=== PATIENT | male | born 1970 | race Caucasian/White ===

== ENCOUNTER → 2018-03-22 23:54 | Outpatient (CLI) | payer OTHER, SELFPAY ==
[2018-03-22 15:24] VITALS: BMI 49.1
[2018-03-23 00:11] LABS: ALB/GLOB Ratio 0.9 RATIO (0.9-2.4); AST(SGOT) 26 U/L (15-37); Alanine Aminotransfer ALT/SGPT 54 U/L (16-61); Albumin, Serum 3.6 g/dL (3.2-5.0); Alkaline Phosphatase 69 U/L (45-117); Anion Gap 8 (5-15); BUN 14 mg/dL (7-18); BUN/Creat Ratio 14.5 RATIO (10-20); Calcium,Total 8.5 mg/dL (8.5-10.1); Chloride 105 mmol/L (98-107); Cholesterol 142 mg/dL (200); Creatinine, Serum 0.96 mg/dL (0.70-1.30); EST Glomerular Filtration Rate 89 mL/min (>60); Est Glom Filt Rate - Afr Amer 108 mL/min (>60); Globulin 3.8 g/dL (2.2-4.2); Glucose 120 mg/dL (74-106); High Density Lipoprotein 34 mg/dL; Potassium 4.2 mmol/L (3.5-5.1); Protein, Total 7.4 g/dL (6.4-8.2); Sodium Level 140 mmol/L (136-145); Triglycerides 134 mg/dL; Very Low Density Lipoprotein 27 mg/dL (5-40)
[2018-03-23 00:13] LABS: Absolute Lymphocyte Count 2.44 X10^3/ul (0.83-4.51); Absolute Neutrophil Count 5.9 X10^3/uL (2.0-7.7); Basophil# 0.03 X10^3/uL; Basophil% 0.3 % (0-1); Eosinophil# 0.13 X10^3/uL; Eosinophils% 1.4 % (0-5); Hematocrit 45.1 % (40-54); Hemoglobin 15.3 g/dl (13.0-16.5); Lymphocyte # 2.44 X10^3/ul (4.0); Mean Corp Hgb Conc 33.9 g/gl (32-36); Mean Corpuscular Hgb 30.2 pg (27.0-32.0); Mean Platelet Vol. 10.9 fl (6.2-12.0); Monocyte% 5.5 % (0-10); Neutrophil # 5.92 X10^3/uL (2.7-7.7); Neutrophil % 65.5 % (47-70); Platelet Count 275 K/mm3 (150-450); RBC Distribution Width CV 13.4 % (11.6-14.6); RBC Distribution Width SD 43.3 fl (35.1-43.9); Red Blood Count 5.07 M/mm3 (4.6-6.2); White Blood Count 9.1 K/mm3 (4.4-11.0)
[2018-03-23 00:14] LABS: POSITIVE COUNT NO; POSITIVE DIFFERENTIAL NO; POSITIVE MORPHOLOGY NO
== END ==
PROVIDERS: Referring Provider Nurse Practitioner; Visit Provider Nurse Practitioner
DX: I10 Essential (primary) hypertension (principal); R60.9 Edema, unspecified
CPT/HCPCS: 80053; 80061; 85025

== ENCOUNTER → 2018-04-03 12:45 | Outpatient (CLI) | payer OTHER, SELFPAY ==
[2018-03-22 15:24] VITALS: BMI 49.1
--- NOTE | 2018-04-03 12:49 | VDLE_ITS ---
Reason For Study: BLE EDEMA RIGHT LEFT GSV is normal. GSV is normal. CFV is compressible, spontaneous, phasic, CFV is compressible, spontaneous, phasic, competent and demonstrates normal competent, and demonstrates normal augmentation. augmentation. FV is compressible, spontaneous, phasic, FV is compressible, spontaneous, phasic, competent and demonstrates normal competent and demonstrates normal augmentation. augmentation. POP V is compressible, spontaneous, phasic, POP V is compressible, spontaneous, phasic, competent and demonstrates normal competent and demonstrates normal augmentation. augmentation. T/P Trunk is compressible. T/P Trunk is compressible. PTV is compressible. PTV is compressible. RT PerV is compressible. LT PerV is compressible. SFJ is competent. SFJ is competent. GSV is competent throughout. GSV is competent throughout. SSV is competent. SSV is competent. Procedure Exam performed in department. The study was technically difficult. The exam was diagnostic. A preliminary report was called and/or faxed to Lana Adamson NP. Interpretation Summary Deep veins of the lower extremities are bilaterally patent and compressible segmentally. There is no evidence of deep vein thrombosis on either side. Valvular competence appears intact within the proximal deep venous systems bilaterally. The greater saphenous veins appear bilaterally patent and compressible segmentally. Sapheno-femoral junctions are bilaterally competent . Valvular competence appears to be intact segmentally within the greater saphenous veins bilaterally. Small saphenous veins are patent and competent bilaterally. Ordering Physician: Lana Adamson Referring Physician: Lana Stanley Performed By: Lisa Lombardo, CASIMIRO, RVT
--- NOTE | 2018-04-03 12:50 | ART_ITS ---
Reason For Study: BLE PAIN AND EDEMA Procedure A bilateral lower extremity continuous wave Doppler with analog waveform analysis,segmental pressures,and ankle brachial indexes without exercise. Left Segmental Pressures Left brachial= 155mmHg. Left posterior tibial artery = 176mmHg. Left dorsalis pedis artery = 173mmHg. The left dorsalis pedis waveforms are triphasic. The left posterior tibial artery waveforms are triphasic. Right Segmental Pressures Right brachial= 159mmHg. Right posterior tibial artery = 192mmHg. Right dorsalis pedis artery = 190mmHg. The right dorsalis pedis waveforms are triphasic. The right posterior tibial artery waveforms are triphasic. Indices The right resting ankle brachial index is 1.21. The right ankle brachial index by the dorsalis pedis is 1.19. The right ankle brachial index by the posterior tibial artery is 1.21. The left resting ankle brachial index is 1.11. The left ankle brachial index by the dorsalis pedis is 1.09. The left ankle brachial index by the posterior tibial artery is 1.11. Interpretation Summary Triphasic waveforms are noted at ankle level bilaterally. Resting ankle-brachial indices appear bilaterally normal. There is no evidence of significant arterial occlusive disease. Ordering Physician: Lana Adamson Referring Physician: Lana Adamson Performed By: Lisa Lombardo RVT, RDCS
== END ==
PROVIDERS: Referring Provider Nurse Practitioner; Visit Provider Nurse Practitioner
DX: R60.9 Edema, unspecified (principal); I83.90 Asymptomatic varicose veins of unspecified lower extremity; I73.9 Peripheral vascular disease, unspecified
CPT/HCPCS: 93923; 93970

== ENCOUNTER → 2018-04-26 13:58 | Outpatient (CLI) | payer OTHER, SELFPAY ==
[2018-04-17 14:54] VITALS: BMI 57.2
--- NOTE | 2018-04-26 14:01 | ECHOCS_ITS ---
Reason For Study: HTN Procedure This was a 2D Doppler, Color Flow transthoracic echocardiogram. The study was technically difficult. Due to body habitus. Contrast injection was performed. Exam performed in department. Left Ventricle Normal LV size. Left ventricular systolic function is normal. The estimated ejection fraction is 55 %. No regional wall motion abnormalities noted. Right Ventricle Normal RV size. Normal systolic function. Atria The left atrium is mildly enlarged. Normal right atrium. Mitral Valve Mitral valve not well visualized. Tricuspid Valve The tricuspid valve is not well visualized. Aortic Valve The aortic valve is not well visualized. Pulmonic Valve The pulmonic valve is not well visualized. Great Vessels Normal aortic root. Pericardium/Pleural No pericardial effusion. Medication 22 gauge I.V. with prn adaptor inserted into right arm. Diluted definity 3.0ml given slow IV push to enhance endocardial definition. MMode/2D Measurements & Calculations LVIDd: 5.2 cm IVSd: 1.2 cm Ao root diam: 3.3 cm LVIDs: 3.7 cm LVPWd: 1.3 cm RVDd: 3.4 cm FS: 28.1 % LAV(MOD-bp): 78.8 ml LA A4 area: 23.7 cm2 LA dimension(2D): 4.2 cm LAV(MOD-bp) Indexed: 26.6 ml/m2 LAV(MOD-sp2): 73.9 ml LAV(MOD-sp4): 81.3 ml RA A4 area: 16.8 cm2 Doppler Measurements & Calculations MV E max rafael: 103.4 cm/sec Lat Peak E' Rafael: 10.8 cm/sec Med Peak E' Rafael: 10.1 cm/sec MV A max rafael: 89.4 cm/sec E/E' lat: 9.5 E/E' med: 10.2 MV E/A: 1.2 Ao V2 max: 107.1 cm/sec LV V1 max: 78.3 cm/sec PA V2 max: 93.5 cm/sec Ao max P.6 mmHg LV V1 max P.5 mmHg Interpretation Summary Normal LV size. Left ventricular systolic function is normal. The estimated ejection fraction is 55 %. The study was technically difficult. Contrast injection was performed. Ordering Physician: Gaston Barton Referring Physician: OTD Performed By: Lisa Lombardo, CASIMIRO, RVT
== END ==
PROVIDERS: Referring Provider Internal Medicine Cardiovascular Disease; Visit Provider Internal Medicine Cardiovascular Disease
DX: I10 Essential (primary) hypertension (principal); R60.9 Edema, unspecified
CPT/HCPCS: 93306; Q9957; A4216; C8929

== ENCOUNTER → 2019-03-07 10:12 | Outpatient (CLI) | payer OTHER, SELFPAY ==
[2018-04-17 14:54] VITALS: BMI 57.2
[2019-03-07 12:11] LABS: Absolute Lymphocyte Count 2.43 X10^3/uL (0.83-4.51); Absolute Neutrophil Count 5.9 X10^3/uL (2.0-7.7); Basophil# 0.05 X10^3/uL; Basophil% 0.5 % (0-1); Eosinophil# 0.18 X10^3/uL; Hematocrit 45.9 % (40-54); Hemoglobin 15.6 g/dL (13.0-16.5); Lymphocyte # 2.43 X10^3/ul (4.0); Lymphocyte % 26.7 % (19-41); Mean Corpuscular Hgb 29.8 pg (27.0-32.0); Mean Corpuscular Volume 87.6 fL (80-94); Mean Platelet Vol. 10.6 fl (6.2-12.0); Monocyte# 0.47 X10^3/uL; Monocyte% 5.2 % (0-10); NRBC Flagged by Analyzer 0 % (0-5); Neutrophil # 5.93 X10^3/uL (2.7-7.7); Neutrophil % 65.1 % (47-70); Platelet Count 287 K/mm3 (150-450); RBC Distribution Width CV 12.5 % (11.6-14.6); RBC Distribution Width SD 40.1 fl (35.1-43.9); Red Blood Count 5.24 M/mm3 (4.6-6.2); White Blood Count 9.1 K/mm3 (4.4-11.0)
[2019-03-07 12:20] LABS: Erythrocyte Sedimentation Rate 18 mm/hr (0-15)
[2019-03-07 12:28] LABS: ALB/GLOB Ratio 0.9 RATIO (0.9-2.4); AST(SGOT) 24 U/L (15-37); Alanine Aminotransfer ALT/SGPT 65 U/L (16-61); Albumin, Serum 3.5 g/dL (3.2-5.0); Alkaline Phosphatase 70 U/L (45-117); Anion Gap 3 (5-15); BUN 13 mg/dL (7-18); BUN/Creat Ratio 13.3 RATIO (10-20); Calcium,Total 8.9 mg/dL (8.5-10.1); Chloride 101 mmol/L (98-107); Creatinine, Serum 0.98 mg/dL (0.70-1.30); EST Glomerular Filtration Rate 88 mL/min (>60); Est Glom Filt Rate - Afr Amer 106 mL/min (>60); Glucose 191 mg/dL (74-106); Potassium 4.1 mmol/L (3.5-5.1); Protein, Total 7.5 g/dL (6.4-8.2); Rheumatoid Factor < 10.0 IU/mL (<15); Sodium Level 135 mmol/L (136-145)
[2019-03-07 13:13] LABS: Hepatitis B Surface Antibody Non-Reactive; Hepatitis B Surface Antigen Non-Reactive (Nonreactive); Hepatitis C Antibody Non-Reactive (Nonreactive)
[2019-03-10 09:37] LABS: CCP IgG Antibodies 8 units (0-19); Hepatitis B Core AB IgM Negative (Negative)
[2019-03-10 16:19] LABS: ANTINUCLEAR ANTIBODIES DIRECT Negative (Negative)
== END ==
PROVIDERS: Referring Provider Internal Medicine Rheumatology; Visit Provider Internal Medicine Rheumatology
DX: M06.4 Inflammatory polyarthropathy (principal); K21.9 Gastro-esophageal reflux disease without esophagitis; G25.81 Restless legs syndrome; G47.33 Obstructive sleep apnea (adult) (pediatric); E66.9 Obesity, unspecified
CPT/HCPCS: 36415; 80053; 85025; 85652; 86038; 86140; 86200; 86431; 86705; 86706; 86803; 87340

== ENCOUNTER → 2019-04-03 21:44 | Outpatient (CLI) | payer OTHER, SELFPAY ==
[2019-04-03 17:13] VITALS: BMI 56.9
[2019-04-03 22:11] LABS: Cholesterol 165 mg/dL (200); High Density Lipoprotein 34 mg/dL; Triglycerides 212 mg/dL; Very Low Density Lipoprotein 42 mg/dL (5-40)
== END ==
PROVIDERS: Referring Provider Nurse Practitioner; Visit Provider Nurse Practitioner
DX: I10 Essential (primary) hypertension (principal)
CPT/HCPCS: 80061

== ENCOUNTER → 2019-06-04 10:58 | Outpatient (CLI) | payer OTHER, SELFPAY ==
[2019-04-03 17:13] VITALS: BMI 56.9
[2019-06-04 12:15] LABS: Absolute Lymphocyte Count 2.56 X10^3/uL (0.83-4.51); Absolute Neutrophil Count 5.3 X10^3/uL (2.0-7.7); Basophil# 0.04 X10^3/uL; Basophil% 0.5 % (0-1); Eosinophil# 0.11 X10^3/uL; Eosinophils% 1.3 % (0-5); Hematocrit 46.7 % (40-54); Hemoglobin 15.8 g/dL (13.0-16.5); Lymphocyte # 2.56 X10^3/ul (4.0); Lymphocyte % 29.1 % (19-41); Mean Corp Hgb Conc 33.8 g/dL (32-36); Mean Corpuscular Hgb 29.1 pg (27.0-32.0); Mean Platelet Vol. 10.2 fl (6.2-12.0); Monocyte# 0.69 X10^3/uL; Monocyte% 7.8 % (0-10); NRBC Flagged by Analyzer 0 % (0-5); Neutrophil # 5.33 X10^3/uL (2.7-7.7); Neutrophil % 60.5 % (47-70); Platelet Count 293 K/mm3 (150-450); RBC Distribution Width CV 13.2 % (11.6-14.6); RBC Distribution Width SD 40.9 fl (35.1-43.9); Red Blood Count 5.43 M/mm3 (4.6-6.2); White Blood Count 8.8 K/mm3 (4.4-11.0)
[2019-06-04 12:24] LABS: ALB/GLOB Ratio 0.9 RATIO (0.9-2.4); AST(SGOT) 24 U/L (15-37); Alanine Aminotransfer ALT/SGPT 56 U/L (16-61); Albumin, Serum 3.7 g/dL (3.2-5.0); Alkaline Phosphatase 69 U/L (45-117); Anion Gap 7 (5-15); BUN 16 mg/dL (7-18); BUN/Creat Ratio 15.5 RATIO (10-20); Calcium,Total 8.9 mg/dL (8.5-10.1); Chloride 98 mmol/L (98-107); Creatinine, Serum 1.03 mg/dL (0.70-1.30); EST Glomerular Filtration Rate 82 mL/min (>60); Est Glom Filt Rate - Afr Amer 100 mL/min (>60); Glucose 207 mg/dL (74-106); Potassium 3.8 mmol/L (3.5-5.1); Protein, Total 7.7 g/dL (6.4-8.2); Sodium Level 134 mmol/L (136-145)
== END ==
PROVIDERS: Referring Provider Internal Medicine Rheumatology; Visit Provider Internal Medicine Rheumatology
DX: M06.4 Inflammatory polyarthropathy (principal); M72.2 Plantar fascial fibromatosis; K21.9 Gastro-esophageal reflux disease without esophagitis; G25.81 Restless legs syndrome; G47.33 Obstructive sleep apnea (adult) (pediatric); E66.9 Obesity, unspecified
CPT/HCPCS: 36415; 80053; 85025

== ENCOUNTER → 2020-01-05 21:12 | Outpatient (CLI) | payer OTHER, SELFPAY ==
[2020-01-05 17:20] VITALS: BMI 46.0
[2020-01-05 21:33] LABS: Absolute Lymphocyte Count 2.72 X10^3/uL (0.83-4.51); Absolute Neutrophil Count 5.6 X10^3/uL (2.0-7.7); Basophil# 0.05 X10^3/uL; Basophil% 0.6 % (0-1); Eosinophil# 0.11 X10^3/uL; Eosinophils% 1.2 % (0-5); Hemoglobin 15.2 g/dL (13.0-16.5); Lymphocyte # 2.72 X10^3/ul (4.0); Mean Corpuscular Hgb 29.3 pg (27.0-32.0); Mean Corpuscular Volume 88.6 fL (80-94); Mean Platelet Vol. 10.7 fl (6.2-12.0); Monocyte# 0.54 X10^3/uL; NRBC Flagged by Analyzer 0 % (0-5); Neutrophil # 5.58 X10^3/uL (2.7-7.7); Neutrophil % 61.5 % (47-70); Platelet Count 276 K/mm3 (150-450); RBC Distribution Width SD 42.2 fl (35.1-43.9); Red Blood Count 5.19 M/mm3 (4.6-6.2); White Blood Count 9.1 K/mm3 (4.4-11.0)
[2020-01-05 21:53] LABS: ALB/GLOB Ratio 0.9 RATIO (0.9-2.4); AST(SGOT) 33 U/L (15-37); Alanine Aminotransfer ALT/SGPT 58 U/L (16-61); Albumin, Serum 3.4 g/dL (3.2-5.0); Alkaline Phosphatase 74 U/L (45-117); Anion Gap 7 (5-15); BUN 14 mg/dL (7-18); BUN/Creat Ratio 11.1 RATIO (10-20); Calcium,Total 8.9 mg/dL (8.5-10.1); Chloride 101 mmol/L (98-107); Cholesterol 181 mg/dL (200); Creatinine, Serum 1.26 mg/dL (0.70-1.30); EST Glomerular Filtration Rate 65 mL/min (>60); Est Glom Filt Rate - Afr Amer 79 mL/min (>60); Globulin 3.9 g/dL (2.2-4.2); Glucose 352 mg/dL (74-106); High Density Lipoprotein 35 mg/dL; PSA,Total - Annual Screen 0.97 ng/mL (0.00-4.00); Protein, Total 7.3 g/dL (6.4-8.2); Sodium Level 136 mmol/L (136-145); Triglycerides 235 mg/dL; Very Low Density Lipoprotein 47 mg/dL (5-40)
== END ==
LOC: OLS.AHF 21:12 → LABSPEC 01-06 08:34
PROVIDERS: Referring Provider Nurse Practitioner; Visit Provider Nurse Practitioner
DX: N30.90 Cystitis, unspecified without hematuria (principal); N40.0 Benign prostatic hyperplasia without lower urinary tract symptoms; I10 Essential (primary) hypertension
CPT/HCPCS: 80053; 80061; 84153; 85025; 87086; G0103

== ENCOUNTER → 2021-03-16 21:30 | Outpatient (CLI) | payer OTHER, SELFPAY ==
[2021-03-16 21:48] LABS: Absolute Lymphocyte Count 3.02 X10^3/uL (0.83-4.51); Absolute Neutrophil Count 5.5 X10^3/uL (2.0-7.7); Basophil# 0.06 X10^3/uL; Basophil% 0.6 % (0-1); Eosinophils% 2.1 % (0-5); Hematocrit 46.9 % (40-54); Hemoglobin 16.1 g/dL (13.0-16.5); Lymphocyte # 3.02 X10^3/ul (0.83-4.51); Lymphocyte % 32.4 % (19-41); Mean Corp Hgb Conc 34.3 g/dL (32-36); Mean Corpuscular Hgb 30.1 pg (27.0-32.0); Mean Corpuscular Volume 87.8 fL (80-94); Mean Platelet Vol. 10.5 fl (6.2-12.0); Monocyte# 0.54 X10^3/uL; Monocyte% 5.8 % (0-10); NRBC Flagged by Analyzer 0 % (0-5); Neutrophil # 5.47 X10^3/uL (2.7-7.7); Neutrophil % 58.8 % (47-70); Platelet Count 304 K/mm3 (150-450); RBC Distribution Width CV 13.1 % (11.6-14.6); RBC Distribution Width SD 42.1 fl (35.1-43.9); Red Blood Count 5.34 M/mm3 (4.6-6.2); White Blood Count 9.3 K/mm3 (4.4-11.0)
[2021-03-16 22:13] LABS: Hemoglobin A1c 8.5 % (3.8-5.6)
[2021-03-16 22:15] LABS: ALB/GLOB Ratio 0.8 RATIO (0.9-2.4); AST(SGOT) 26 U/L (15-37); Alanine Aminotransfer ALT/SGPT 51 U/L (16-61); Albumin, Serum 3.4 g/dL (3.2-5.0); Alkaline Phosphatase 70 U/L (45-117); Anion Gap 6 (5-15); BUN 19 mg/dL (7-18); BUN/Creat Ratio 18.8 RATIO (10-20); Calcium,Total 8.8 mg/dL (8.5-10.1); Chloride 103 mmol/L (98-107); Cholesterol 179 mg/dL (200); Creatinine, Serum 1.01 mg/dL (0.70-1.30); EST Glomerular Filtration Rate 84 mL/min (>60); Est Glom Filt Rate - Afr Amer 101 mL/min (>60); Glucose 191 mg/dL (74-106); High Density Lipoprotein 29 mg/dL; PSA,Total - Annual Screen 0.98 ng/mL (0.00-4.00); Protein, Total 7.4 g/dL (6.4-8.2); Sodium Level 134 mmol/L (136-145); Triglycerides 268 mg/dL; Very Low Density Lipoprotein 54 mg/dL (5-40)
== END ==
PROVIDERS: PCP Nurse Practitioner; Visit Provider Nurse Practitioner
DX: Z00.00 Encounter for general adult medical examination without abnormal findings (principal)
CPT/HCPCS: 80053; 80061; 83036; 84153; 85025; G0103

== ENCOUNTER 2021-05-02 13:40 | Outpatient (CLI) | payer OTHER, SELFPAY ==
--- NOTE | 2021-05-02 13:48 | CT_ITS ---
STUDY: CT ABDOMEN AND PELVIS WITHOUT CONTRAST REASON FOR EXAM: Male, 50 years old. L flank pain -- N and + diabetes RADIATION DOSAGE (If Supplied By Facility): CTDIvol = ( 28.09 ) mGy, DLP = ( 1545.14 ) mGycm TECHNIQUE: Transaxial images were obtained from the dome of the diaphragm to the symphysis pubis without oral contrast, and without intravenous contrast. Sagittal and coronal images were reconstructed. Individualized dose optimization techniques were used for this CT. COMPARISON: None. FINDINGS: The visualized lung bases are unremarkable. The visualized portions of the heart are within normal limits. Normal liver. The gallbladder is contracted. Normal spleen. Normal pancreas. Normal bilateral adrenal glands. Normal right kidney. Normal left kidney. There is a small hiatal hernia. Normal small intestine. There are multiple colonic diverticula consistent with diverticulosis. The appendix is visualized and appears normal. Normal abdominal aorta. Normal inferior vena cava. Normal retroperitoneum. Normal urinary bladder. Small benign-appearing bilateral inguinal lymph nodes. Normal abdominal wall. There are diffuse degenerative changes of the visualized lumbar spine. CT/Abdomen/Pelvis without Cont IMPRESSION: No acute abnormality is seen. Electronically Signed: Alexei Gallardo MD at 15:02 RUST ,
== END 2021-05-02 23:59 | disposition short-term general hospital (02) ==
PROVIDERS: PCP Nurse Practitioner; Referring Provider Nurse Practitioner; Visit Provider Nurse Practitioner
DX: E11.65 Type 2 diabetes mellitus with hyperglycemia (principal); R10.9 Unspecified abdominal pain
CPT/HCPCS: 74176

== ENCOUNTER → 2022-03-30 | Outpatient (CLI) | payer OTHER, SELFPAY ==
[2022-03-30 21:48] LABS: Absolute Lymphocyte Count 2.61 X10^3/uL (0.83-4.51); Absolute Neutrophil Count 5.8 X10^3/uL (2.0-7.7); Basophil# 0.03 X10^3/uL; Basophil% 0.3 % (0-1); Eosinophils% 6.3 % (0-5); Hematocrit 52.8 % (40-54); Lymphocyte # 2.61 X10^3/ul (0.83-4.51); Lymphocyte % 27.2 % (19-41); Mean Corp Hgb Conc 34.7 g/dL (32-36); Mean Corpuscular Hgb 29.9 pg (27.0-32.0); Mean Corpuscular Volume 86.3 fL (80-94); Mean Platelet Vol. 10.7 fl (6.2-12.0); Monocyte% 5.2 % (0-10); NRBC Flagged by Analyzer 0 % (0-5); Neutrophil # 5.82 X10^3/uL (2.7-7.7); Neutrophil % 60.6 % (47-70); Platelet Count 305 K/mm3 (150-450); RBC Distribution Width CV 13.1 % (11.6-14.6); RBC Distribution Width SD 40.9 fl (35.1-43.9); Red Blood Count 6.12 M/mm3 (4.6-6.2); White Blood Count 9.6 K/mm3 (4.4-11.0)
[2022-03-30 21:57] LABS: POSITIVE COUNT NO; POSITIVE DIFFERENTIAL NO; POSITIVE MORPHOLOGY NO
[2022-03-30 21:58] LABS: Differential Indicated SCAN CRITERIA MET
[2022-03-30 22:07] LABS: ALB/GLOB Ratio 0.8 RATIO (0.9-2.4); AST(SGOT) 18 U/L (15-37); Alanine Aminotransfer ALT/SGPT 41 U/L (16-61); Albumin, Serum 3.6 g/dL (3.2-5.0); Alkaline Phosphatase 79 U/L (45-117); Anion Gap 6 (5-15); BUN 14 mg/dL (7-18); BUN/Creat Ratio 13.7 RATIO (10-20); Calcium,Total 9.1 mg/dL (8.5-10.1); Chloride 100 mmol/L (98-107); Cholesterol 161 mg/dL (200); Creatinine, Serum 1.02 mg/dL (0.70-1.30); EST Glomerular Filtration Rate 82 mL/min (>60); Est Glom Filt Rate - Afr Amer 100 mL/min (>60); Globulin 4.3 g/dL (2.2-4.2); Glucose 128 mg/dL (74-106); High Density Lipoprotein 32 mg/dL; PSA,Total - Annual Screen 0.64 ng/mL (0.00-4.00); Protein, Total 7.9 g/dL (6.4-8.2); Sodium Level 135 mmol/L (136-145); Triglycerides 198 mg/dL; Very Low Density Lipoprotein 40 mg/dL (5-40)
[2022-03-30 22:22] LABS: Hemoglobin A1c 6.3 % (3.8-5.6)
[2022-03-30 22:36] LABS: Hemoglobin 18.3 g/dL (13.0-16.5)
[2022-03-30 22:37] LABS: Anisocytosis RARE; Platelet Estimate ADEQUATE (ADEQ); Red Cell Morphology N CHROM NORMAL (NORM C&C)
[2022-03-31 11:37] LABS: Pathologist Review Reviewed
== END | disposition home or self-care (01) ==
PROVIDERS: PCP Nurse Practitioner; Visit Provider Nurse Practitioner
DX: E11.65 Type 2 diabetes mellitus with hyperglycemia (principal); R60.9 Edema, unspecified; I10 Essential (primary) hypertension; N40.0 Benign prostatic hyperplasia without lower urinary tract symptoms
CPT/HCPCS: 80053; 80061; 83036; 84153; 85025; G0103

== ENCOUNTER → 2022-05-16 | Outpatient (CLI) | payer BC, SELFPAY | END | disposition home or self-care (01) | PROVIDERS: PCP Nurse Practitioner; Visit Provider Nurse Practitioner | DX: M54.50 Low back pain, unspecified (principal); R35.0 Frequency of micturition | CPT/HCPCS: 87086; 87088 ==

== ENCOUNTER → 2022-05-17 | Outpatient (CLI) | payer BC, SELFPAY ==
--- NOTE | 2022-05-17 11:08 | RAD_ITS ---
STUDY: X-RAY - LUMBAR SPINE REASON FOR EXAM: Male, 51 years old. lower back pain TECHNIQUE: XR Spine Lumbar Comp W/ Bending Min 6 Views COMPARISON: None FINDINGS: Normal lumbar lordosis. There is no substantial scoliosis. There is a normal alignment of the vertebrae. There is multilevel endplate spondylosis of the lumbar vertebrae. There is multi-level degenerative disc disease with multi-level disc space narrowing. There are atherosclerotic vascular calcifications. The soft tissue structures are unremarkable. Degenerative findings of the hips. There is no movement on the flexion or extension views. RAD/L/S Spine Bending Flex/Ext IMPRESSION: Degenerative changes of the spine, as detailed above. Electronically Signed: Ludwin Hatch MD at 18:12 EST ,
== END | disposition home or self-care (01) ==
LOC: MTRAD 11:06
PROVIDERS: PCP Nurse Practitioner; Visit Provider Nurse Practitioner
DX: M54.50 Low back pain, unspecified (principal)
CPT/HCPCS: 72120

== ENCOUNTER → 2022-06-17 | Outpatient (CLI) | payer BC, SELFPAY ==
--- NOTE | 2022-06-17 | MRI_ITS ---
INDICATION: Low back pain. Lumbar spondylosis. EXAMINATION: MR Spine Lumbar W/O Contrast TECHNIQUE: Multiplanar and multisequence MR images of the lumbar spine. IV Contrast Dosage and Agent: None. COMPARISON: Lumbar spine x-rays May 17, 2022. FINDINGS: VERTEBRAE: Vertebral body heights are preserved. Multilevel Schmorl''s on endplate changes. Modic endplate change at L3-4. No marrow edema or fracture. Mild congenital narrowing of the pedicles within the upper lumbar spine. VERTEBRAL ALIGNMENT: No spondylolisthesis. There is preservation of the normal lumbar lordosis. CORD: Normal position and signal intensity of the conus medullaris. Conus terminates normally at L1. There is redundancy of the cauda equina at L1 and L2 secondary to spinal stenosis. SOFT TISSUES: Aorta is normal in caliber. Mild atrophy of the paraspinous musculature. AXIAL IMAGES: L1-2: Left central disc protrusion. Mild facet arthropathy. Mild bordering on moderate spinal canal narrowing. Mild endplate osteophyte formation. Mild to moderate left foraminal narrowing. L2-3: Broad central protrusion. Facet arthropathy and ligamentum flavum thickening. Moderate bordering on severe spinal canal narrowing. Mild bilateral foraminal narrowing. L3-4: Broad central protrusion. Facet degenerative change and ligamentum flavum thickening. Moderate to severe spinal canal stenosis. Moderate right and mild left foraminal narrowing. L4-5: Broad central protrusion. Mild facet arthropathy and ligamentum flavum thickening. Mild spinal canal stenosis and left greater than right reticular recess narrowing. Mild foraminal narrowing. L5-S1: No focal disc protrusion. Mild facet arthropathy. No spinal canal or foraminal stenosis. MRI/Spine Lumbar (Routine) IMPRESSION: Spondylosis changes of the lumbar spine with spinal stenosis as described. Surgical evaluation is recommended. Electronically Signed: Blaze Adam MD at 17:25 EDT ,
== END | disposition home or self-care (01) ==
LOC: MRI 07:55
PROVIDERS: PCP Nurse Practitioner; Referring Provider Orthopaedic Surgery; Visit Provider Orthopaedic Surgery
DX: M47.816 Spondylosis without myelopathy or radiculopathy, lumbar region (principal)
CPT/HCPCS: 72148

== ENCOUNTER 2023-02-19 10:33 | Day surgery (SDC) | payer BC, SELFPAY ==
[2023-02-19] VITALS (7 sets, daily range): BP systolic 122–134; BP diastolic 76–95; PULSE 71–89; RESP 16–18; TEMP 36.1–36.8; O2SAT 95–99; BMI 51.9
[2023-02-19] MEDS: Lactated Ringers 1,000 ML 15 ML IV (10:45)
[2023-02-19 11:25] LABS: Bedside Glucose 108 mg/dL (74-106)
--- NOTE | 2023-02-19 11:25 | RAD_ITS ---
PROCEDURE: Caudal epidural steroid injection. DATE OF EXAMINATION: February 19, 2023. INDICATION: Male, 52 years old. Low back pain. FLUOROSCOPY TIME (if supplied): (12.9 seconds) minutes/seconds. 18.33 mGy. One image was submitted. Intraoperative fluoroscopic services provided for caudal epidural steroid injection. RAD/Fluor Guidance for Spine Inj IMPRESSION: Intraoperative fluoroscopic services provided for caudal epidural steroid injection. Electronically Signed: Alexei Gallardo MD at 11:05 EST ,
[2023-02-19] MEDS: Bupivacaine 0.25% 30 ML Vial (11:30)
[2023-02-19] MEDS: 0.9% Normal Saline (Pres. free 10 ML Vial (11:30)
[2023-02-19] MEDS: MethylPREDNISolone Acetate 80 MG/ML Vial (11:30)
[2023-02-19] MEDS: Lidocaine 1% (5 ml sdv) 5 ML Vial (11:30)
--- NOTE | 2023-02-19 11:35 | OP.PCM_ITS ---
Report of Operation Date of Procedure: 02/19/23 Pre-Operative Diagnosis: Lumbosacral radiculopathy, lumbosacral degenerative di sc disease, lumbosacral spinal stenosis Post-Operative Diagnosis: Lumbosacral radiculopathy, lumbosacral degenerative disc disease, lumbosacral spinal stenosis Surgery/Procedure Performed:: Diagnostic/therapeutic caudal epidural steroid injection under fluoroscopic guidance Type of Anesthesia: MAC Estimated Blood Loss (mL): Minimal Description of Procedure: DESCRIPTION OF PROCEDURE: History and physical of today was reviewed. Risks and benefits of the procedure were explained. The patient understood and agreed to proceed. Informed consent was obtained. IV inserted per routine protocol. The patient was taken to the operating room and placed in the prone position with a pillow positioned underneath the abdomen. The lower back and tailbone area was prepped and draped in a sterile fashion using iodine x3. Under fluoroscopy guidance on a lateral view, the caudal space was identified. The skin and subcutaneous tissue was anesthetized with approximately 3 mL of 1% lidocaine using a 25-gauge regular needle. Under direct visualization with fluoroscopy, using a 22-gauge 3-1/2-inch spinal needle, the needle was advanced via the skin through the sacral hiatus. The tip of the needle was passed through the sacrococcygeal ligament and advanced to approximately S4 area. After negative aspiration of blood or CSF, a total of 3 mL of contrast was injected to confirm correct placement of the needle as well as cephalad spread. The spread was followed to approximately L5 area. After confirmation on AP as well as lateral view and repeated negative aspiration, a total of 15 mL of preservative-free 0.125% Marcaine with 80 mg of Depo-Medrol was injected easily. The needle was then removed intact. The patient experienced no sign or symptoms of intrathecal or intravascular injection. The patient experienced no paresthesia. The procedure was completed without any apparent difficulty or any complications. The patient appeared to tolerate it well. ASSESSMENT AND PLAN: This is a 52-year-old male with lumbosacral radiculopathy, lumbosacral degenerative disc disease, lumbosacral spinal stenosis status post diagnostic/therapeutic caudal epidural steroid injection, patient will continue his current medications, patient will follow in approximately 2 weeks for reevaluation. Complications None
== END 2023-02-19 12:18 | disposition home or self-care (01) ==
LOC: SDC 10:33 → AC 10:34
PROVIDERS: PCP Nurse Practitioner; Referring Provider Anesthesiology Pain Medicine; Visit Provider Anesthesiology Pain Medicine
PROC: 3E0S3BZ Introduction of Anesthetic Agent into Epidural Space, Percutaneous Approach (ICD-10-PCS; CPT 62282; principal; 2023-02-19 12:05)
DX: M48.07 Spinal stenosis, lumbosacral region (principal); E11.9 Type 2 diabetes mellitus without complications; M51.17 Intervertebral disc disorders with radiculopathy, lumbosacral region; J45.909 Unspecified asthma, uncomplicated; K21.9 Gastro-esophageal reflux disease without esophagitis; I10 Essential (primary) hypertension; Z79.899 Other long term (current) drug therapy
CPT/HCPCS: 62323; 01992; 64483; 77003; 82962; J7120; J3490

== ENCOUNTER 2023-08-20 08:52 | Day surgery (SDC) | payer BC, SELFPAY ==
[2023-08-20] VITALS (7 sets, daily range): BP systolic 94–134; BP diastolic 63–88; PULSE 73–82; RESP 16; TEMP 36.4–36.8; O2SAT 95–98; BMI 51.2
[2023-08-20] MEDS: Lactated Ringers 1,000 ML 15 ML IV (09:26)
[2023-08-20 10:06] LABS: Bedside Glucose 120 mg/dL (74-106)
--- NOTE | 2023-08-20 10:11 | RAD_ITS ---
EXAM: FL Fluoro (separate procedure), up to 1 hour HISTORY: CAUDAL EPIDURAL STEROID INJECTION COMPARISON: None Technique: One C-arm image obtained, 5.7 seconds fluoroscopy, a dose of 6.58mGy FINDINGS: Fluoroscopy was provided for epidural injection of a steroid by Dr. Haley RAD/Fluor Guidance for Spine Inj IMPRESSION: Fluoroscopy provided for steroid injection Electronically Signed: Aristides De Anda MD at 12:07 EDT ,
[2023-08-20] MEDS: Lidocaine 1% (5 ml sdv) 5 ML Vial (10:18)
[2023-08-20] MEDS: MethylPREDNISolone Acetate 80 MG/ML Vial (10:18)
[2023-08-20] MEDS: 0.9% Normal Saline (Pres. free 10 ML Vial (10:18)
--- NOTE | 2023-08-20 10:20 | OP.PCM_ITS ---
Report of Operation Date of Procedure: 08/20/23 Pre-Operative Diagnosis: Lumbosacral radiculopathy, lumbosacral degenerative di sc disease, lumbosacral spinal stenosis Post-Operative Diagnosis: Lumbosacral radiculopathy, lumbosacral degenerative disc disease, lumbosacral spinal stenosis Surgery/Procedure Performed:: Diagnostic/therapeutic caudal epidural steroid injection under fluoroscopic guidance Type of Anesthesia: MAC Estimated Blood Loss (mL): Minimal Description of Procedure: DESCRIPTION OF PROCEDURE: History and physical of today was reviewed. Risks and benefits of the procedure were explained. The patient understood and agreed to proceed. Informed consent was obtained. IV inserted per routine protocol. The patient was taken to the operating room and placed in the prone position with a pillow positioned underneath the abdomen. The lower back and tailbone area was prepped and draped in a sterile fashion using iodine x3. Under fluoroscopy guidance on a lateral view, the caudal space was identified. The skin and subcutaneous tissue was anesthetized with approximately 3 mL of 1% lidocaine using a 25-gauge regular needle. Under direct visualization with fluoroscopy, using a 22-gauge 3-1/2-inch spinal needle, the needle was advanced via the skin through the sacral hiatus. The tip of the needle was passed through the sacrococcygeal ligament and advanced to approximately S4 area. After negative aspiration of blood or CSF, a total of 3 mL of contrast was injected to confirm correct placement of the needle as well as cephalad spread. The spread was followed to approximately L5 area. After confirmation on AP as well as lateral view and repeated negative aspiration, a total of 15 mL of preservative-free 0.125% Marcaine with 80 mg of Depo-Medrol was injected easily. The needle was then removed intact. The patient experienced no sign or symptoms of intrathecal or intravascular injection. The patient experienced no paresthesia. The procedure was completed without any apparent difficulty or any complications. The patient appeared to tolerate it well. ASSESSMENT AND PLAN: This is a 53-year-old male with lumbosacral radiculopathy, lumbosacral degenerative disc disease, lumbosacral spinal stenosis status post diagnostic/therapeutic caudal epidural steroid injection, patient will continue his current medications, patient will follow in approximately 2 weeks for reevaluation. Complications None
== END 2023-08-20 11:19 | disposition home or self-care (01) ==
LOC: SDC 08:55 → AC 08:55
PROVIDERS: PCP Nurse Practitioner; Visit Provider Anesthesiology Pain Medicine
PROC: 3E0S3BZ Introduction of Anesthetic Agent into Epidural Space, Percutaneous Approach (ICD-10-PCS; CPT 62282; principal; 2023-08-20 10:25)
DX: M51.17 Intervertebral disc disorders with radiculopathy, lumbosacral region (principal); E11.9 Type 2 diabetes mellitus without complications; M48.07 Spinal stenosis, lumbosacral region; I10 Essential (primary) hypertension; G47.33 Obstructive sleep apnea (adult) (pediatric); Z79.899 Other long term (current) drug therapy
CPT/HCPCS: 62323; 01992; 64483; 77003; 82962; J7120; J3490

== ENCOUNTER 2023-08-31 21:37 | Emergency (ER) | payer BC, SELFPAY ==
[2023-08-31 21:38] VITALS: BP 158/94; PULSE 89; RESP 16; TEMP 36.8; O2SAT 98
--- NOTE | 2023-08-31 21:54 | CT_ITS ---
INDICATION: Kidney Stone EXAMINATION: CT ABDOMEN AND PELVIS WITHOUT CONTRAST - CT Abdomen And Pelvis W/O Contrast Injection TECHNIQUE: Helically acquired images were obtained of the abdomen and pelvis without oral or IV contrast. A radiation dose optimization technique was used for this scan. IV Contrast dosage and agent: None. Oral contrast: None. COMPARISON: 05/02/2021. FINDINGS: LOWER CHEST: Lung bases are clear. No cardiomegaly or pericardial effusion. LIVER: Homogeneous. No focal mass. GALLBLADDER AND BILIARY TREE: No calcified gallstones. No gallbladder distension or wall edema. No intra- or extrahepatic biliary ductal dilation. PANCREAS: No focal cystic or solid mass. SPLEEN: Normal size without focal cystic or solid mass. ADRENAL GLANDS: No nodules. KIDNEYS AND URETERS: Normal renal size and position. No hydronephrosis. PERITONEUM: No ascites or free air. No other fluid collection. BOWEL: Minimal hiatal hernia. No acute gastric finding. No small bowel distention or focal wall thickening. Normal appendix. Large colonic stool burden without wall thickening or surrounding inflammation. LYMPH NODES: No enlarged mesenteric or retroperitoneal lymph nodes. VESSELS: Aorta is non-dilated. URINARY BLADDER: Mild bilateral perinephric stranding. No hydronephrosis or nephrolithiasis. Subtle left renal 1.4 cm cyst, no specific imaging follow-up required. Unremarkable ureters and bladder. REPRODUCTIVE ORGANS: No pelvic masses. ABDOMINAL WALL: Fat-containing umbilical hernia without inflammation. No discrete abdominal or pelvic wall hernia. BONES: No lytic or blastic abnormality. CT/Abdomen/Pelvis without Cont IMPRESSION: No evidence of nephrolithiasis or obstructive uropathy. Mild perinephric stranding which is commonly senescent. Pyelonephritis could look similar. Correlate with urine. Large colonic stool burden. Distal colonic diverticulosis without evidence of diverticulitis. Electronically Signed: Garret Landeros MD at 23:25 EDT ,
--- NOTE | 2023-08-31 21:57 | EX.ED.DYSGE1 ---
HPI History of Present Illness Chief Complaint: Complaint Narrative Narrative: 53-year-old male past medical history of chronic back pain for which he receives steroid injections, past medical history of diabetes, hypertension, presents with bilateral leg cramping and thigh cramping along with left flank pain greater than right that has had for the last week. His relate history that he has been having problems with back spasms and flank spasms for the last week. It is usually exacerbated by him laying down. He states he can be at work, be standing, and it does not happen. This evening, he was laying down and had to get up because feels like charley horses in his bilateral thighs. He denies any fever or chills, no loss of bowel or bladder, no saddle anesthesia. He states he is not having problems with his chronic back pain, there was an area in his left flank that his felt more muscle spasms. He states when he gets them he has to stand up to try and make them go away. [facility] Medical History Diabetes Arthritis History of echocardiogram Back pain Dietary restriction Gastric reflux Non-smoker Cardiology follow-up encounter Hypertension History of stress test BPH (benign prostatic hyperplasia) Asthmatic bronchitis Pneumonia Home Medications ?Medication ?Instructions ?Recorded ?Last Taken ?Type pantoprazole 20 mg tablet,delayed 40 mg PO DAILY 04/17/18 Unknown History release (Protonix) finasteride 5 mg tablet 5 mg PO DAILY 05/16/22 Unknown History blood sugar diagnostic (Accu-Chek #100 ea 07/31/22 Unknown Rx Guide test strips) lancets (Accu-Chek Softclix #100 ea 07/31/22 Unknown Rx Lancets) empagliflozin 25 mg tablet 25 mg PO DAILY #90 tabs 01/10/23 Unknown Rx (Jardiance) hydrochlorothiazide 25 mg tablet 25 mg PO DAILY #90 tabs 01/10/23 Unknown Rx lisinopril 40 mg tablet 40 mg PO DAILY #90 tabs 01/10/23 Unknown Rx metoprolol succinate 200 mg 200 mg PO DAILY #90 tabs 01/10/23 08/19/23 15:00 Rx tablet,extended release 24 hr benzonatate 200 mg capsule 200 mg PO TID PRN cough #45 caps 03/29/23 Unknown Rx doxycycline hyclate 100 mg capsule 100 mg PO BID #20 caps 03/29/23 Unknown Rx tirzepatide 7.5 mg/0.5 mL 7.5 mg subcut QWEEK 03/29/23 Unknown History subcutaneous pen injector cyclobenzaprine 10 mg tablet 10 mg PO TID PRN Muscle Spasm #20 08/31/23 Unknown Rx TABLETS Allergy/AdvReac Type Severity Reaction Status Date / Time dulaglutide (From [facility]) Allergy Severe NUMBNESS Verified 08/31/23 21:41 AROUND THE MOUTH Penicillins Allergy Severe hives and Verified 08/31/23 21:41 swelling Family History Mother Diabetes Dementia Father CVA (cerebral vascular accident) Dementia Surgical History Hx of arthroscopy of right knee Hx of arthroscopy of left knee [place] teeth removed Social History Smoking Status: Never smoker ROS ROS ED ROS Narrative Constitutional: No fever, no chills. HEENT: No sore throat. No neck pain. No loss of vision. No rhinorrhea. Cardiovascular: No chest pain. No palpitations. No pedal edema. Respiratory: No cough, no shortness of breath. Abdominal: No abdominal pain. No nausea. No vomiting. Bilateral flank pain left greater than right. Genitourinary: No dysuria. No hematuria. Mild frequency, but has history of diabetes. Musculoskeletal: Bilateral thigh pain and muscle spasms. No arthralgias. Neurologic: No headaches. No dizziness. No lightheadedness. Skin: No rash. No change in color. Psychiatric: No depression. No anxiety. EXAM Physical Exam Narrative Exam Narrative: Afebrile. Vital signs noted. HEENT: Normocephalic. Atraumatic. PERRL, EOMI. Neck soft and supple. No point tenderness or step off. Cardiovascular: Regular rate and rhythm. No murmurs, rubs, or gallops appreciated. Respiratory: No tachypnea. Lungs clear to auscultation bilaterally. Gastrointestinal: Abdomen soft, nontender, with normoactive bowel sounds. No rebound or guarding. Neurological: Awake. Alert. Nonfocal, nonlateralizing. Skin: No rash. Normal color. No pallor. Musculoskeletal: No pedal edema. Full range of motion extremities. Const Vital Signs: 08/31/23 21:38 Temperature 98.2 F Temperature Source Temporal Pulse Rate 89 Respiratory Rate 16 Blood Pressure 158/94 H Blood Pressure Mean 115 Pulse Ox 98 Oxygen Delivery Method Room Air MDM MDM MDM Narrative Medical decision making narrative: In the differential diagnosis is dehydration or electrolyte imbalance causing muscle spasms versus kidney stone versus degenerative joint disease of the spine, lumbar. He was having more flank pain and muscle spasms there, and bilateral quadriceps spasming and pain. He will be bolused normal saline 1 L intravenously for hydration. He declined any pain medications currently. I do not think he needs dedicated x-rays or imaging of his lumbar spine. I have low suspicion for cauda equina because there are no red flag signs. Will be worked up for ureterolithiasis although states his pain is bilateral. I do feel CT of the abdomen pelvis without contrast would be of benefit to rule out any intra-abdominal pathology. I will also check a magnesium level along with CBC and CMP to look for dehydration or electrolyte imbalance. I reviewed his laboratory work and he has slight elevation of his white count of 12.6 which I think is nonspecific, hemoglobin slightly hemoconcentrated 17.2 with hematocrit 51.9, platelet count normal at 277. Sodium slightly low at 134 but he was bolused normal saline 1 L intravenously. Potassium is normal at 3.7. BUN slightly elevated at 23 with a normal creatinine of 1.[address] of the abdomen and pelvis without contrast was obtained and I reviewed the radiology report. It comments on bilateral perinephric stranding which could be senescent or consistent with pyelonephritis. However, his urinalysis is negative for leukocytes and negative for nitrites on dip UA and he is not having dysuria, no fever. I do not feel that he requires antibiotics. CT also comments on large colonic stool burden along with diverticulosis but no evidence of diverticulitis. Patient continued to decline any pain medications. At this point in time, I feel he can be discharged safely home with follow-up to his primary care provider on Sunday. I wrote him a prescription for 20 Flexeril tablets to take should he have more muscle spasms and cramping. I do not feel he requires observation at this time. Return instructions to the emergency department were reviewed. Patient and are comfortable with the plan. Disposition is discharged home in stable condition. History & Record Review Discussion w/independent historian: Patient and Significant other (Spouse) Lab Data Attestation: I reviewed the patient's lab results. Labs: Laboratory Results - last 24 hr 08/31/23 08/31/23 22:10 23:24 WBC 12.6 H RBC 5.84 Hgb 17.2 H Hct 51.9 MCV 88.9 MCH 29.5 MCHC 33.1 RDW Std Deviation 43.6 RDW Coeff of Mandeep 13.6 Plt Count 277 MPV 9.7 Immature Gran % (Auto) 0.700 Neut % (Auto) 69.6 Lymph % (Auto) 21.4 Kinney % (Auto) 6.7 Eos % (Auto) 1.1 Baso % (Auto) 0.5 Absolute Neuts (auto) 8.8 H Absolute Lymphs (auto) 2.70 Nucleated RBC % 0 Sodium 134 L Potassium 3.7 Chloride 99 Carbon Dioxide 27.0 Anion Gap 8 BUN 23 H Creatinine 1.10 Est GFR (MDRD) Af Amer 91 Est GFR (MDRD) Non-Af 75 BUN/Creatinine Ratio 20.9 H Glucose 141 H Calcium 8.7 Magnesium 2.2 Urine Color Yellow Urine Clarity Clear Urine pH 5.0 Ur Specific Thornton 1.025 Urine Protein Negative Urine Glucose (UA) 1000 H Urine Ketones Negative Urine Occult Blood 10 H Urine Nitrite Negative Urine Bilirubin Negative Urine Urobilinogen Normal Ur Leukocyte Esterase Negative Radiography Diagnostic Testing: Clinical Impression(s) from Imaging Studies Abdomen/Pelvis CT 08/31/23 21:54 IMPRESSION: No evidence of nephrolithiasis or obstructive uropathy. Mild perinephric stranding which is commonly senescent. Pyelonephritis could look similar. Correlate with urine. Large colonic stool burden. Distal colonic diverticulosis without evidence of diverticulitis. Electronically Signed: Garret Landeros MD at 23:25 EDT , Discharge Plan Triage Chief Complaint: Complaint Other Complaint: Back ED Provider: Luis M Ely Dx/Rx/DC Orders Clinical Impression: Muscle cramping, Flank pain Instructions: ED Flank Pain, Uncertain Cause, ED Leg Spasm, ED Muscle Spasm Prescriptions: New cyclobenzaprine 10 mg tablet 10 mg PO TID PRN (Reason: Muscle Spasm) Qty: 20 0RF No Action pantoprazole [Protonix] 20 mg tablet,delayed release (DR/EC) 40 mg PO DAILY finasteride 5 mg tablet 5 mg PO DAILY Jardiance 25 mg tablet 25 mg PO DAILY Qty: 90 3RF hydrochlorothiazide 25 mg tablet 25 mg PO DAILY Qty: 90 3RF lisinopril 40 mg tablet 40 mg PO DAILY Qty: 90 3RF metoprolol succinate 200 mg tablet extended release 24 hr 200 mg PO DAILY Qty: 90 3RF doxycycline hyclate 100 mg capsule 100 mg PO BID Qty: 20 0RF tirzepatide 7.5 mg/0.5 mL pen injector 7.5 mg subcut QWEEK benzonatate 200 mg capsule 200 mg PO TID PRN (Reason: cough) Qty: 45 1RF (DME) Accu-Chek Guide test strips Strip See Rx Instructions .Route Qty: 100 3RF Rx Instructions: test at least 0nce a day (DME) lancets [Accu-Chek Softclix Lancets] Misc See Rx Instructions .Route Qty: 100 3RF Rx Instructions: As directed Primary Care Provider: Lana Adamson NP Referrals: Lana Adamson NP, [facility] [Primary Care Provider] - 3-5 Days Print Language: Korean Disposition Disposition: Home, Self Care
[2023-08-31] MEDS: 0.9% Normal Saline (1000mL) 1,000 ML 999 ML IV (22:09)
[2023-08-31 22:25] LABS: Absolute Neutrophil Count 8.8 X10^3/uL (2.0-7.7); Basophil# 0.06 X10^3/uL; Basophil% 0.5 % (0-1); Eosinophil# 0.14 X10^3/uL; Eosinophils% 1.1 % (0-5); Hematocrit 51.9 % (40-54); Hemoglobin 17.2 g/dL (13.0-16.5); Lymphocyte % 21.4 % (19-41); Mean Corp Hgb Conc 33.1 g/dL (32-36); Mean Corpuscular Hgb 29.5 pg (27.0-32.0); Mean Corpuscular Volume 88.9 fL (80-94); Mean Platelet Vol. 9.7 fl (6.2-12.0); Monocyte# 0.85 X10^3/uL; Monocyte% 6.7 % (0-10); NRBC Flagged by Analyzer 0 % (0-5); Neutrophil % 69.6 % (47-70); Platelet Count 277 K/mm3 (150-450); RBC Distribution Width CV 13.6 % (11.6-14.6); RBC Distribution Width SD 43.6 fl (35.1-43.9); Red Blood Count 5.84 M/mm3 (4.6-6.2); White Blood Count 12.6 K/mm3 (4.4-11.0)
[2023-08-31 22:43] LABS: Anion Gap 8 (5-15); BUN 23 mg/dL (7-18); BUN/Creat Ratio 20.9 RATIO (10-20); Calcium,Total 8.7 mg/dL (8.5-10.1); Chloride 99 mmol/L (98-107); EST Glomerular Filtration Rate 75 mL/min (>60); Est Glom Filt Rate - Afr Amer 91 mL/min (>60); Glucose 141 mg/dL (74-106); Magnesium 2.2 mg/dL (1.6-2.6); Potassium 3.7 mmol/L (3.5-5.1); Sodium Level 134 mmol/L (136-145)
[2023-08-31 23:28] LABS: Bacteria 0 SEEN /hpf (None Seen); Mucous, Urine 0 SEEN /hpf (<or=2+); Red Blood Cells-Urine 0 SEEN /hpf (0-5); Squamous Epithelial Cells - UA 0 SEEN /hpf (0-5); White Blood Cells 0 SEEN /hpf (0-5)
[2023-08-31 23:34] LABS: Color, Urine Yellow (Yellow); Glucose, Dipstick 1000 mg/dl (Normal); Ketone-Dipstick Negative (Negative); Leukocyte Esterase-Dipstick Negative /ul (Negative); Nitrite-Dipstick Negative (Negative); Occult Blood-Urine 10 /ul (Negative); Protein-Dipstick Negative (Negative); Specific Gravity, Urine 1.025 (1.002-1.030); Urine Bilirubin Dipstick Negative (Negative); Urine Clarity Clear (Clear); Urine Urobilinogen Normal (Normal)
[2023-08-31 23:38] VITALS: BP 133/92; PULSE 82; RESP 16; TEMP 36.6; O2SAT 98
== END 2023-08-31 23:59 | disposition home or self-care (01) ==
PROVIDERS: Emergency Provider Emergency Medicine; PCP Nurse Practitioner; Visit Provider Emergency Medicine
DX: E86.0 Dehydration (principal); E11.9 Type 2 diabetes mellitus without complications; M54.9 Dorsalgia, unspecified; K57.30 Diverticulosis of large intestine without perforation or abscess without bleeding; I10 Essential (primary) hypertension; R25.2 Cramp and spasm; R10.9 Unspecified abdominal pain; Z79.899 Other long term (current) drug therapy
CPT/HCPCS: 74176; 80048; 81001; 83735; 85025; 96360; 99283; A4216

== ENCOUNTER → 2023-09-06 | Outpatient (CLI) | payer BC, SELFPAY | END | disposition home or self-care (01) | PROVIDERS: PCP Nurse Practitioner; Referring Provider Nurse Practitioner; Visit Provider Nurse Practitioner | DX: M54.9 Dorsalgia, unspecified (principal); R10.9 Unspecified abdominal pain | CPT/HCPCS: 87086 ==

== ENCOUNTER 2023-12-17 08:32 | Day surgery (SDC) | payer BC, SELFPAY ==
--- NOTE | 2023-12-17 08:46 | PRE.ANES_ITS ---
ASA Classification* ASA Classification ASA Classification: 3 Assessment & Plan Anesthesia* Anesthesia Assessment Anesthesia Assessment: Discussed sedation and/or anesthesia options, risks, benefits, and alternatives with patient/parents/legal guardian/POA. Questions invited. The patient/parents/legal guardian/POA seems to understand and agrees to proceed with anesthesia plan. Reviewed the physical assessment, medical history, allergy history and patient home medications list prior to surgery/procedure/anesthetic and documented any changes. Performed airway and anesthesia risk assessments. Anesthesia Type Anesthesia Type: MAC Anesthesia Focused Assessment* Airway Assessment Mouth opens: >3 cm Mallampati Score: II Focused Labs Anesthesia Preop lab: CBC WBC 12.6 K/mm3 (4.4-11.0) H 08/31/23 22:10 RBC 5.84 M/mm3 (4.6-6.2) 08/31/23 22:10 Hgb 17.2 g/dL (13.0-16.5) H 08/31/23 22:10 Hct 51.9 % (40-54) 08/31/23 22:10 Plt Count 277 K/mm3 (150-450) 08/31/23 22:10 CHEMISTRY Potassium 3.7 mmol/L (3.5-5.1) 08/31/23 22:10 Sodium 134 mmol/L (136-145) L 08/31/23 22:10 Magnesium 2.2 mg/dL (1.6-2.6) 08/31/23 22:10 BUN 23 mg/dL (7-18) H 08/31/23 22:10 Creatinine 1.10 mg/dL (0.70-1.30) 08/31/23 22:10 Glucose 141 mg/dL (74-106) H 08/31/23 22:10 POC Glucose 120 mg/dL (74-106) H 08/20/23 09:21 COAG Pre-Assessment Diagnosis/Proposed Procedure Planned Operative Procedure(s): Caudal DIGNA Anesthesia History Anesthesia History - 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 When Was Last Pacemaker Check QUESTION #4 FULL TEXT: You/Your Family Experience fever (hyperthermia) with Anesthesia Last Oral Intake Last Oral intake: Last Oral Intake NPO since Meds taken in AM with sips of water? Meds patient instructed to take am of surgery PONV PONV - lapping machine tender: PONV - lapping machine tender Female HX of Motion Sickness HX of N/V After Surgery Non-Smoker Duration of Surgery greater than 60 minutes Number of Risk Factors PONV Score Height & Weight Height & Weight: Anesthesia: Height & Weight Height 6 ft 12/06/23 19:39 Respiratory Assessment Respiratory Assessment - lapping machine tender: Respiratory Tract Infection Hx - lapping machine tender Hx Respiratory Tract Infection No 03/28/23 14:35 STOP Sleep Apnea STOP Sleep Apnea - lapping machine tender: STOP Sleep Apnea - lapping machine tender Hx Hypertension Yes: CONTROLLED WITH MEDS 03/28/23 14:35 Hx Sleep Apnea No 03/28/23 14:35 CPAP BIPAP Do you snore loudly (louder than talking or can be heard Do you often feel tired/ fatigued/ sleepy during daytime? Has anyone observed you stop breathing during sleep? STOP Results QUESTION #5 FULL TEXT : Do you snore loudly (louder than talking or can be heard through closed doors)? 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 Specify any problems Hx of Preganancy in last 3 Months Nurse Filling Out Transfusion & Questions: Date: Time: Patient unable to answer at this time (ie. confused, unrespo /Reproduction History /Reproductive History - lapping machine tender: /Reproductive Hx- lapping machine tender Hx Now Gestational Age (in weeks): EDC: Hx Hx Para Hx Section SAB No 03/28/23 14:35 PFSH Medical History Diabetes Arthritis History of echocardiogram Back pain Dietary restriction Gastric reflux Non-smoker Cardiology follow-up encounter Hypertension History of stress test BPH (benign prostatic hyperplasia) Asthmatic bronchitis Pneumonia Home Medications ?Medication ?Instructions ?Recorded ?Last Taken ?Type pantoprazole 20 mg tablet,delayed 40 mg PO DAILY 04/17/18 Unknown History release (Protonix) finasteride 5 mg tablet 5 mg PO DAILY 05/16/22 Unknown History blood sugar diagnostic (Accu-Chek #100 ea 07/31/22 Unknown Rx Guide test strips) lancets (Accu-Chek Softclix #100 ea 07/31/22 Unknown Rx Lancets) empagliflozin 25 mg tablet 25 mg PO DAILY #90 tabs 01/10/23 Unknown Rx (Jardiance) hydrochlorothiazide 25 mg tablet 25 mg PO DAILY #90 tabs 01/10/23 Unknown Rx lisinopril 40 mg tablet 40 mg PO DAILY #90 tabs 01/10/23 Unknown Rx metoprolol succinate 200 mg 200 mg PO DAILY #90 tabs 01/10/23 08/19/23 15:00 Rx tablet,extended release 24 hr benzonatate 200 mg capsule 200 mg PO TID PRN cough #45 caps 03/29/23 Unknown Rx cyclobenzaprine 10 mg tablet 10 mg PO TID PRN Muscle Spasm #20 08/31/23 Unknown Rx TABLETS tirzepatide 10 mg/0.5 mL 10 mg (0.5 mL) subcut QWEEK 90 09/18/23 Unknown Rx subcutaneous pen injector days #6.5 mL Allergy/AdvReac Type Severity Reaction Status Date / Time dulaglutide (From [facility]) Allergy Severe NUMBNESS Verified 08/31/23 21:41 AROUND THE MOUTH Penicillins Allergy Severe hives and Verified 08/31/23 21:41 swelling Family History Mother Diabetes Dementia Father CVA (cerebral vascular accident) Dementia Surgical History Hx of arthroscopy of right knee Hx of arthroscopy of left knee [place] teeth removed Social History Smoking Status: Never smoker Review of Systems (Anesthesia) ROS Narrative System reviewed and no additional complaints, except as documented.
[2023-12-17 08:57] VITALS: BP 128/88; PULSE 73; RESP 16; TEMP 36.6; O2SAT 98; BMI 52.0
--- NOTE | 2023-12-17 09:00 | RAD_ITS ---
PROCEDURE: Caudal epidural injection. DATE OF EXAMINATION: December 17, 2023. INDICATION: Male, 53 years old. Low back pain. FLUOROSCOPY TIME (if supplied): (9 seconds) minutes/seconds. 13.68 mGy. One image was submitted. RAD/Fluor Guidance for Spine Inj IMPRESSION: Intraoperative imaging provided for caudal epidural block. Electronically Signed: Alexei Gallardo MD at 14:29 EDT ,
[2023-12-17] MEDS: Lactated Ringers 1,000 ML 15 ML IV (09:15)
[2023-12-17 09:39] LABS: Bedside Glucose 133 mg/dL (74-106)
[2023-12-17] MEDS: Lidocaine 1% (5 ml sdv) 5 ML Vial (09:42)
[2023-12-17] MEDS: MethylPREDNISolone Acetate 80 MG/ML Vial (09:56)
[2023-12-17] MEDS: Bupivacaine 0.25% 30 ML Vial (09:56)
--- NOTE | 2023-12-17 10:04 | PCM.POST.ANE ---
Anesthesia: Postop Eval I Current Vital Signs Temperature: 98.7 F Pulse Rate: 84 Blood Pressure: 129/85 Respiratory Rate: 16 Pulse Ox: 98 Oxygen Delivery Method: Room Air Assessment Airway patent: Yes Spontaneous unlabored respirations: Yes Mental status: Awake and Calm nausea: No Vomiting: No Anesthesia Complication: No Fluid Hydration Crystalloid volume administer (ml): 200 Total IV fluid infused: 200 Progress Note Anesthesia document: Postop Eval 1 completed: Yes
[2023-12-17 10:05] VITALS: BP 128/88; BP 129/85; PULSE 86; RESP 18; TEMP 37.1; O2SAT 97
[2023-12-17 10:06] VITALS: BP 129/85; PULSE 84; RESP 16; TEMP 37.1; O2SAT 98
--- NOTE | 2023-12-17 10:07 | OP.PCM_ITS ---
Report of Operation Date of Procedure: 12/17/23 Pre-Operative Diagnosis: Lumbosacral radiculopathy, lumbosacral degenerative di sc disease, lumbosacral spinal stenosis Post-Operative Diagnosis: Lumbosacral radiculopathy, lumbosacral degenerative disc disease, lumbosacral spinal stenosis Surgery/Procedure Performed:: Diagnostic/therapeutic caudal epidural steroid injection under fluoroscopic guidance Type of Anesthesia: MAC Estimated Blood Loss (mL): Minimal Description of Procedure: DESCRIPTION OF PROCEDURE: History and physical of today was reviewed. Risks and benefits of the procedure were explained. The patient understood and agreed to proceed. Informed consent was obtained. IV inserted per routine protocol. The patient was taken to the operating room and placed in the prone position with a pillow positioned underneath the abdomen. The lower back and tailbone area was prepped and draped in a sterile fashion using iodine x3. Under fluoroscopy guidance on a lateral view, the caudal space was identified. The skin and subcutaneous tissue was anesthetized with approximately 3 mL of 1% lidocaine using a 25-gauge regular needle. Under direct visualization with fluoroscopy, using a 22-gauge 3-1/2-inch spinal needle, the needle was advanced via the skin through the sacral hiatus. The tip of the needle was passed through the sacrococcygeal ligament and advanced to approximately S4 area. After negative aspiration of blood or CSF, a total of 3 mL of contrast was injected to confirm correct placement of the needle as well as cephalad spread. The spread was followed to approximately L5 area. After confirmation on AP as well as lateral view and repeated negative aspiration, a total of 15 mL of preservative-free 0.125% Marcaine with 80 mg of Depo-Medrol was injected easily. The needle was then removed intact. The patient experienced no sign or symptoms of intrathecal or intravascular injection. The patient experienced no paresthesia. The procedure was completed without any apparent difficulty or any complications. The patient appeared to tolerate it well. ASSESSMENT AND PLAN: This is a 53-year-old male with lumbosacral radiculopathy, lumbosacral degenerative disc disease, lumbosacral spinal stenosis status post caudal epidural steroid injection, patient will continue his current medications, patient will follow in approximately 2 weeks for reevaluation. Complications None
[2023-12-17 10:09] VITALS: BP 128/88; BP 134/91; PULSE 80; RESP 18; O2SAT 98
[2023-12-17 10:14] VITALS: BP 128/88; BP 137/89; PULSE 81; RESP 18; TEMP 37.1; O2SAT 98
[2023-12-17 10:22] VITALS: BP 128/88
--- NOTE | 2023-12-17 11:20 | POSTOPAN2_ITS ---
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
== END 2023-12-17 10:41 | disposition home or self-care (01) ==
LOC: SDC 08:37 → AC 08:38
PROVIDERS: PCP Nurse Practitioner; Referring Provider Anesthesiology Pain Medicine; Visit Provider Anesthesiology Pain Medicine
PROC: 3E0S3BZ Introduction of Anesthetic Agent into Epidural Space, Percutaneous Approach (ICD-10-PCS; CPT 62282; principal; 2023-12-17 09:55)
DX: M48.07 Spinal stenosis, lumbosacral region (principal); E11.9 Type 2 diabetes mellitus without complications; M51.17 Intervertebral disc disorders with radiculopathy, lumbosacral region; I10 Essential (primary) hypertension; K21.9 Gastro-esophageal reflux disease without esophagitis
CPT/HCPCS: 62323; 64483; 77003; 82962; J7120; J3490

== ENCOUNTER → 2024-03-18 | Outpatient (CLI) | payer BC, SELFPAY ==
[2024-03-18 21:21] LABS: Absolute Lymphocyte Count 3.08 X10^3/uL (0.83-4.51); Absolute Neutrophil Count 5.2 X10^3/uL (2.0-7.7); Basophil# 0.06 X10^3/uL; Basophil% 0.7 % (0-1); Eosinophil# 0.17 X10^3/uL; Eosinophils% 1.9 % (0-5); Hematocrit 47.3 % (40-54); Hemoglobin 15.7 g/dL (13.0-16.5); Lymphocyte # 3.08 X10^3/ul (0.83-4.51); Lymphocyte % 34.3 % (19-41); Mean Corp Hgb Conc 33.2 g/dL (32-36); Mean Corpuscular Hgb 29.5 pg (27.0-32.0); Mean Corpuscular Volume 88.7 fL (80-94); Mean Platelet Vol. 10.3 fl (6.2-12.0); Monocyte# 0.46 X10^3/uL; Monocyte% 5.1 % (0-10); NRBC Flagged by Analyzer 0 % (0-5); Neutrophil # 5.17 X10^3/uL (2.7-7.7); Neutrophil % 57.6 % (47-70); Platelet Count 281 K/mm3 (150-450); RBC Distribution Width CV 12.9 % (11.6-14.6); RBC Distribution Width SD 42.1 fl (35.1-43.9); Red Blood Count 5.33 M/mm3 (4.6-6.2)
[2024-03-18 21:43] LABS: ALB/GLOB Ratio 0.9 RATIO (0.9-2.4); AST(SGOT) 22 U/L (15-37); Alanine Aminotransfer ALT/SGPT 36 U/L (16-61); Albumin, Serum 3.5 g/dL (3.2-5.0); Alkaline Phosphatase 71 U/L (45-117); Anion Gap 3 (5-15); BUN 14 mg/dL (7-18); BUN/Creat Ratio 15.9 RATIO (10-20); Chloride 102 mmol/L (98-107); Cholesterol 166 mg/dL (200); Creatinine, Serum 0.88 mg/dL (0.70-1.30); EST Glomerular Filtration Rate 97 mL/min (>60); Est Glom Filt Rate - Afr Amer 117 mL/min (>60); Globulin 3.7 g/dL (2.2-4.2); Glucose 185 mg/dL (74-106); High Density Lipoprotein 42 mg/dL; Potassium 3.6 mmol/L (3.5-5.1); Protein, Total 7.2 g/dL (6.4-8.2); Sodium Level 137 mmol/L (136-145); Triglycerides 123 mg/dL; Very Low Density Lipoprotein 25 mg/dL (5-40)
== END | disposition home or self-care (01) ==
PROVIDERS: PCP Nurse Practitioner; Referring Provider Nurse Practitioner; Visit Provider Nurse Practitioner
DX: E11.65 Type 2 diabetes mellitus with hyperglycemia (principal); N40.0 Benign prostatic hyperplasia without lower urinary tract symptoms; I10 Essential (primary) hypertension
CPT/HCPCS: 80053; 80061; 84153; 85025

== ENCOUNTER 2024-04-07 07:32 | Day surgery (SDC) | payer BC, SELFPAY ==
[2024-04-07] VITALS (7 sets, daily range): BP systolic 133–159; BP diastolic 80–92; PULSE 81–94; RESP 15–16; TEMP 36.6–36.8; O2SAT 96–97; BMI 54.4
--- NOTE | 2024-04-07 07:56 | PRE.ANES_ITS ---
ASA Classification* ASA Classification ASA Classification: 3 Assessment & Plan Anesthesia* Anesthesia Assessment Anesthesia Assessment: Discussed sedation and/or anesthesia options, risks, benefits, and alternatives with patient/parents/legal guardian/POA. Questions invited. The patient/parents/legal guardian/POA seems to understand and agrees to proceed with anesthesia plan. Reviewed the physical assessment, medical history, allergy history and patient home medications list prior to surgery/procedure/anesthetic and documented any changes. Performed airway and anesthesia risk assessments. Anesthesia Type Anesthesia Type: MAC Anesthesia Focused Assessment* Airway Assessment Mouth opens: >3 cm Mallampati Score: II Focused Labs Anesthesia Preop lab: CBC WBC 9.0 K/mm3 (4.4-11.0) 03/18/24 19:03 RBC 5.33 M/mm3 (4.6-6.2) 03/18/24 19:03 Hgb 15.7 g/dL (13.0-16.5) 03/18/24 19:03 Hct 47.3 % (40-54) 03/18/24 19:03 Plt Count 281 K/mm3 (150-450) 03/18/24 19:03 CHEMISTRY Potassium 3.6 mmol/L (3.5-5.1) 03/18/24 19:03 Sodium 137 mmol/L (136-145) 03/18/24 19:03 Magnesium 2.2 mg/dL (1.6-2.6) 08/31/23 22:10 BUN 14 mg/dL (7-18) 03/18/24 19:03 Creatinine 0.88 mg/dL (0.70-1.30) 03/18/24 19:03 Glucose 185 mg/dL (74-106) H 03/18/24 19:03 POC Glucose 133 mg/dL (74-106) H 12/17/23 09:20 COAG Pre-Assessment Diagnosis/Proposed Procedure Planned Operative Procedure(s): lumbar medial nerve block Anesthesia History Anesthesia History - grader green meat: Anesthesia History - grader green meat Hx Hospitalization No 03/28/23 14:35 Any Problems With Anesthesia No 03/28/23 14:35 Cholinesterase deficiency No 03/28/23 14:35 You/Your Family Experience No 03/28/23 14:35 fever (hyperthermia) with Relationship Recent Exposure to Contagious No 08/20/23 09:17 Disease Does patient have nerve No 03/28/23 14:35 stimulator Patient instructed to have device shut off --Does patient have Pacemaker or ICD? When Was Last Pacemaker Check QUESTION #4 FULL TEXT: You/Your Family Experience fever (hyperthermia) with Anesthesia Last Oral Intake Last Oral intake: Last Oral Intake NPO since Meds taken in AM with sips of water? Meds patient instructed to take am of surgery PONV PONV - grader green meat: PONV - grader green meat Female HX of Motion Sickness HX of N/V After Surgery Non-Smoker Duration of Surgery greater than 60 minutes Number of Risk Factors PONV Score Height & Weight Height & Weight: Anesthesia: Height & Weight Height 6 ft 03/18/24 18:52 Respiratory Assessment Respiratory Assessment - grader green meat: Respiratory Tract Infection Hx - grader green meat Hx Respiratory Tract Infection No 03/28/23 14:35 STOP Sleep Apnea STOP Sleep Apnea - grader green meat: STOP Sleep Apnea - grader green meat Hx Hypertension Yes: CONTROLLED WITH MEDS 03/28/23 14:35 Hx Sleep Apnea No 03/28/23 14:35 CPAP BIPAP Do you snore loudly (louder than talking or can be heard Do you often feel tired/ fatigued/ sleepy during daytime? Has anyone observed you stop breathing during sleep? STOP Results QUESTION #5 FULL TEXT : Do you snore loudly (louder than talking or can be heard through closed doors)? 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 Specify any problems Hx of Preganancy in last 3 Months Nurse Filling Out Transfusion & Questions: Date: Time: Patient unable to answer at this time (ie. confused, unrespo /Reproduction History /Reproductive History - grader green meat: /Reproductive Hx- grader green meat Hx Now Gestational Age (in weeks): EDC: Hx Hx Para Hx Section SAB No 03/28/23 14:35 PFSH Medical History Diabetes Arthritis History of echocardiogram Back pain Dietary restriction Gastric reflux Non-smoker Cardiology follow-up encounter Hypertension History of stress test BPH (benign prostatic hyperplasia) Asthmatic bronchitis Pneumonia Home Medications ?Medication ?Instructions ?Recorded ?Last Taken ?Type pantoprazole 20 mg tablet,delayed 40 mg PO DAILY 04/17/18 Unknown History release (Protonix) blood sugar diagnostic (Accu-Chek #100 ea 07/31/22 Unknown Rx Guide test strips) lancets (Accu-Chek Softclix #100 ea 07/31/22 Unknown Rx Lancets) benzonatate 200 mg capsule 200 mg PO TID PRN cough #45 caps 03/29/23 Unknown Rx tirzepatide 10 mg/0.5 mL 10 mg (0.5 mL) subcut QWEEK 90 09/18/23 Unknown Rx subcutaneous pen injector days #6.5 mL finasteride 5 mg tablet 5 mg PO DAILY #90 tabs 03/18/24 Unknown Rx lisinopril 40 mg tablet 40 mg PO DAILY #90 tabs 03/18/24 Unknown Rx metoprolol succinate 200 mg 200 mg PO DAILY #90 tabs 03/18/24 Unknown Rx tablet,extended release 24 hr Allergy/AdvReac Type Severity Reaction Status Date / Time dulaglutide (From [facility]) Allergy Severe NUMBNESS Verified 12/17/23 08:53 AROUND THE MOUTH Penicillins Allergy Severe hives and Verified 12/17/23 08:53 swelling Family History Mother Diabetes Dementia Father CVA (cerebral vascular accident) Dementia Surgical History Hx of arthroscopy of right knee Hx of arthroscopy of left knee [place] teeth removed Social History Smoking Status: Never smoker Review of Systems (Anesthesia) ROS Narrative System reviewed and no additional complaints, except as documented.
[2024-04-07 09:19] LABS: Bedside Glucose 236 mg/dL (74-106)
--- NOTE | 2024-04-07 09:21 | RAD_ITS ---
PROCEDURE: Bilateral lumbar nerve block DATE OF EXAMINATION: 04/07/2024 INDICATION: Male, 53 years old. Acute pain PHYSICIAN: Miguel Haley MD FLUOROSCOPY TIME (if supplied): (16.6) seconds 6 images obtained RADIATION DOSAGE (If Supplied By Facility): CTDIvol = ( 18.04 ) mGy, DLP = ( ) mGycm CONSENT: The risks, benefits and alternatives to the procedure were explained to the patient, and the patient agreed to the procedure and signed the consent. SEDATION: Local STERILE BARRIER TECHNIQUE: The following sterile barrier precautions were used during the procedure: hand hygiene; use of 2% chlorhexidine aseptic; use of a cap, mask, sterile gown, sterile gloves, sterile full body drape, and a large sterile sheet. PROCEDURE/TECHNIQUE: (All elements of maximal sterile barrier technique followed, including US elements as applicable) The risks, benefits, and alternatives to the procedure were explained to patient, and the patient agreed to the procedure and signed a consent form for the procedure. A timeout was performed to confirm the patient''s identity, the type of procedure, to be performed and the site of entry. Fluoroscopy provided for bilateral lumbar spine nerve block, no complications noted RAD/L/S Spine Min 4 Views IMPRESSION: No complications noted during bilateral lumbar spine nerve block Electronically Signed: Aristides De Anda MD at 11:12 EST ,
[2024-04-07] MEDS: Lidocaine 1% (30 ml sdv) 30 ML Vial (09:27)
[2024-04-07] MEDS: Bupivacaine 0.25% 30 ML Vial (09:27)
[2024-04-07] MEDS: MethylPREDNISolone Acetate 80 MG/ML Vial (09:27)
--- NOTE | 2024-04-07 09:32 | OP.PCM_ITS ---
Operative Report (Standard) Operative Information Date of Procedure: 04/07/24 Pre-Operative Diagnosis: 1 Post-Operative Diagnosis: 1 Surgery/Procedure Performed: 1 facing cutting machine operator: No Type of Anesthesia: MAC and Topical Anesth RN Documented Start/Stop Times: Operation Date: 04/07/24 09:00 Case Time Into Pre-Op 04/07/24 07:40 Out of Pre-Op 04/07/24 09:06 Anesthesia Start 04/07/24 09:21 Into Room 04/07/24 09:21 Procedure Start 04/07/24 09:26 Procedure End 04/07/24 09:30 Procedure Start Time: :33 Procedure Stop Time: :33 Select all DRAINS/GRAFTS/IMPLANTS that apply: None Estimated Blood Loss: 1 Specimen collected: No Description of surgery: PREOPERATIVE DIAGNOSIS: Lumbosacral spondylosis, lumbosacral degenerative disease, lumbar facet arthropathy POSTOPERATIVE DIAGNOSIS:Lumbosacral spondylosis, lumbosacral degenerative disease, lumbar facet arthropathy PROCEDURE PERFORMED: Bilateral lumbar medial branch block at L4, L5, and S1. ANESTHESIA: MAC. BLOOD LOSS: Minimal. COMPLICATIONS: None. DESCRIPTION OF PROCEDURE: History and physical of today was reviewed. Risks and benefits of the procedure were explained. The patient understood and agreed to proceed. Informed consent was obtained. IV inserted per routine protocol. The patient was taken to the operating room and placed in the prone position with a pillow positioned underneath the abdomen. The lower back was prepped and draped in a sterile fashion using iodine x3. Under fluoroscopy on oblique view, the L4 through S1 vertebral bodies were visualized. The skin and subcutaneous tissue was anesthetized with approximately 5 mL of 1% lidocaine using a 25-gauge regular needle. Under direct visualization with fluoroscopy, at approximately 25-degree angle starting on the left L4, ending on the right L4, passing through the L5-S1 bilaterally, using a 22-gauge 5 inch spinal needle, the needle was advanced via the skin. The tip of the needle was maneuvered and directed towards the superior medial gutter of the transverse process at the vicinity of the medial branch. Once tip of the needle was in contact with the bone, the needle was pulled approximately 2 mm off the bone. After negative aspiration of blood or CSF and confirmation on AP as well as oblique view, a total of 12 mL of preservative-free 0.25% Marcaine with 80 mg of Depo-Medrol was injected in divided doses between those 6 levels. The needles were then removed intact. The patient experienced no sign or symptoms of intrathecal or intravascular injection. The patient experienced no paresthesia. The procedure was completed without any apparent difficulty or any complications. The patient appeared to tolerate it well. ASSESSMENT AND PLAN: This is a 53-year-old male with lumbosacral spondylosis, lumbosacral disc disease, lumbar facet arthropathy status post bilateral lumbar medial branch block at L4-S1, patient will continue his current medications, patient will follow-up in approximately 1-2 weeks for reevaluation Surgical Findings: 1 Complications Complications: No Admit VTE Documentation VTE Present on Admission: No VTE Mechan Device Prophylaxis: None VTE Pharm Prophylaxis ordered?: No
--- NOTE | 2024-04-07 10:23 | PCM.POST.ANE ---
Anesthesia: Postop Eval I Current Vital Signs Temperature: 97.8 F Pulse Rate: 81 Blood Pressure: 156/87 Respiratory Rate: 15 Pulse Ox: 97 Oxygen Delivery Method: Room Air Assessment Airway patent: No Spontaneous unlabored respirations: No Mental status: Awake and Calm nausea: No Vomiting: No Anesthesia Complication: No Fluid Hydration Crystalloid volume administer (ml): 30 Total IV fluid infused: 30 Progress Note Anesthesia document: Postop Eval 1 completed: Yes
--- NOTE | 2024-04-07 10:42 | POSTOPAN2_ITS ---
Anesthesia Postop Eval I Sum Postop Eval Completion status Anesthesia document: Postop Eval 1 completed: Yes Anesthesia Postop Eval I Summary Anesthesia Postop Eval I Summary: Anesthesia Postop Eval I: Assessment Summary Airway patent No 04/07/24 10:24 AWNING HANGER [email or web address] Spontaneous unlabored No 04/07/24 10:24 AWNING HANGER [email or web address].[email or web address] respirations Mental status Awake,Calm 04/07/24 10:24 AWNING HANGER [email or web address].[email or web address] nausea No 04/07/24 10:24 AWNING HANGER [email or web address].[email or web address] Vomiting No 04/07/24 10:24 AWNING HANGER [email or web address].[email or web address] Anesthesia Postop Eval I: Fluid Summary Crystalloid volume administer 30 04/07/24 10:24 AWNING HANGER [email or web address].[email or web address] (ml) Colloids volume administered ( ml) Blood Product volume administered (ml) Total IV fluid infused 30 04/07/24 10:24 AWNING HANGER [email or web address] Anesthesia Postop Eval I: Summary Notes Anesthesia Complication No 04/07/24 10:24 AWNING [email or web address] [email or web address] Anesthesia Complication Comment: Post-operative progress note Anesthesia: Postop Eval II Evaluation Mental status: Awake Pain Level: 0 nausea: No Vomiting: No
--- NOTE | 2024-04-07 10:42 | PCM.POSTANE2 ---
Anesthesia Postop Eval I Sum Postop Eval Completion status Anesthesia document: Postop Eval 1 completed: Yes Anesthesia Postop Eval I Summary Anesthesia Postop Eval I Summary: Anesthesia Postop Eval I: Assessment Summary Airway patent No 04/07/24 10:24 TRUCKLOAD OWNER [email or web address] Spontaneous unlabored No 04/07/24 10:24 TRUCKLOAD OWNER [email or web address].[email or web address] respirations Mental status Awake,Calm 04/07/24 10:24 TRUCKLOAD OWNER [email or web address] nausea No 04/07/24 10:24 TRUCKLOAD OWNER [email or web address] Vomiting No 04/07/24 10:24 TRUCKLOAD OWNER [email or web address] Anesthesia Postop Eval I: Fluid Summary Crystalloid volume administer 30 04/07/24 10:24 TRUCKLOAD OWNER [email or web address] (ml) Colloids volume administered ( ml) Blood Product volume administered (ml) Total IV fluid infused 30 04/07/24 10:24 TRUCKLOAD OWNER [email or web address] Anesthesia Postop Eval I: Summary Notes Anesthesia Complication No 04/07/24 10:24 TRUCKLOAD OWNER [email or web address].[email or web address] Anesthesia Complication Comment: Post-operative progress note Anesthesia: Postop Eval II Evaluation Mental status: Awake Pain Level: 0 nausea: No Vomiting: No
== END 2024-04-07 10:22 | disposition home or self-care (01) ==
LOC: SDC 07:36 → AC 07:37
PROVIDERS: PCP Nurse Practitioner; Referring Provider Anesthesiology Pain Medicine; Visit Provider Anesthesiology Pain Medicine
PROC: 3E0S3BZ Introduction of Anesthetic Agent into Epidural Space, Percutaneous Approach (ICD-10-PCS; CPT 62322; principal; 2024-04-07 08:55)
DX: M47.816 Spondylosis without myelopathy or radiculopathy, lumbar region (principal); M51.379 Other intervertebral disc degeneration, lumbosacral region without mention of lumbar back pain or lower extremity pain; M47.817 Spondylosis without myelopathy or radiculopathy, lumbosacral region
CPT/HCPCS: 64494; 64493 ×2; 64483; 72110; 82962; A4216

== ENCOUNTER 2024-08-18 07:35 | Day surgery (SDC) | payer BC, SELFPAY ==
--- NOTE | 2024-08-18 07:39 | PCM.PRE.AN2 ---
ASA Classification* ASA Classification ASA Classification: 3 Assessment & Plan Anesthesia* Anesthesia Assessment Anesthesia Assessment: Discussed sedation and/or anesthesia options, risks, benefits, and alternatives with patient/parents/legal guardian/POA. Questions invited. The patient/parents/legal guardian/POA seems to understand and agrees to proceed with anesthesia plan. Reviewed the physical assessment, medical history, allergy history and patient home medications list prior to surgery/procedure/anesthetic and documented any changes. Performed airway and anesthesia risk assessments. Anesthesia Type Anesthesia Type: MAC Anesthesia Focused Assessment* Airway Assessment Mouth opens: >3 cm Mallampati Score: II Focused Labs Anesthesia Preop lab: CBC WBC 9.0 K/mm3 (4.4-11.0) 03/18/24 19:03 03/18/24 RBC 5.33 M/mm3 (4.6-6.2) 03/18/24 19:03 03/18/24 Hgb 15.7 g/dL (13.0-16.5) 03/18/24 19:03 03/18/24 Hct 47.3 % (40-54) 03/18/24 19:03 03/18/24 Plt Count 281 K/mm3 (150-450) 03/18/24 19:03 03/18/24 CHEMISTRY Potassium 3.6 mmol/L (3.5-5.1) 03/18/24 19:03 03/18/24 Sodium 137 mmol/L (136-145) 03/18/24 19:03 03/18/24 Magnesium 2.2 mg/dL (1.6-2.6) 08/31/23 22:10 08/31/23 BUN 14 mg/dL (7-18) 03/18/24 19:03 03/18/24 Creatinine 0.88 mg/dL (0.70-1.30) 03/18/24 19:03 03/18/24 Glucose 185 mg/dL (74-106) H 03/18/24 19:03 03/18/24 POC Glucose 236 mg/dL (74-106) H 04/07/24 07:56 04/07/24 COAG Pre-Assessment Diagnosis/Proposed Procedure Planned Operative Procedure(s): BILAT LUMBAR MEDIAL BRANCH AT L4,5,S1 Anesthesia History 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 When Was Last Pacemaker Check QUESTION #4 FULL TEXT: You/Your Family Experience fever (hyperthermia) with Anesthesia Last Oral Intake Last Oral intake: Last Oral Intake NPO since Meds taken in AM with sips of water? 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 Female No 08/15/24 11:22 HX of Motion Sickness No 08/15/24 11:22 HX of N/V After Surgery No 08/15/24 11:22 Non-Smoker Yes 08/15/24 11:22 Duration of Surgery greater No 08/15/24 11:22 than 60 minutes Number of Risk Factors 1 08/15/24 11:22 PONV Score Low Risk 08/15/24 11:22 Height & Weight Height & Weight: Anesthesia: Height & Weight Height 6 ft 08/11/24 15:59 Respiratory Assessment Respiratory Assessment - electric motor and generator assembler: Respiratory Tract Infection Hx - 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 Has anyone observed you stop No 08/15/24 11:22 breathing during sleep? STOP Results Negative 08/15/24 11:22 QUESTION #5 FULL TEXT : Do you snore loudly (louder than talking or can be heard through closed doors)? 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 Specify any problems Hx of Preganancy in last 3 N/A 08/15/24 11:22 Months Nurse Filling Out Transfusion [email or web address] 08/15/24 11:22 & Questions: Date: 08/15/24 08/15/24 11:22 Time: 11:23 08/15/24 11:22 Patient unable to answer at this time (ie. 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 generator assembler: /Reproductive Hx- electric motor and generator assembler Hx Now Gestational Age (in weeks): EDC: Hx Hx Para Hx Section SAB No 08/15/24 11:22 PFSH Medical History Wears glasses Pain Diabetes Arthritis History of echocardiogram Back pain Dietary restriction Gastric reflux Non-smoker Cardiology follow-up encounter Hypertension History of stress test BPH (benign prostatic hyperplasia) Asthmatic bronchitis Home Medications ?Medication ?Instructions ?Recorded ?Last Taken ?Type pantoprazole 20 mg tablet,delayed 40 mg PO DAILY 04/17/18 04/06/24 History release (Protonix) blood sugar diagnostic (Accu-Chek #100 ea 07/31/22 Unknown Rx Guide test strips) lancets (Accu-Chek Softclix #100 ea 07/31/22 Unknown Rx Lancets) lisinopril 40 mg tablet 40 mg PO DAILY #90 tabs 03/18/24 04/06/24 Rx metoprolol succinate 200 mg 200 mg PO DAILY #90 tabs 03/18/24 04/06/24 Rx tablet,extended release 24 hr hydrochlorothiazide 25 mg tablet 25 mg PO DAILY 04/07/24 04/06/24 History albuterol sulfate 90 mcg/actuation 2 puff inhalation Q4H PRN asthma 08/11/24 Unknown Rx aerosol inhaler (Ventolin HFA) #8.5 grams finasteride 5 mg tablet 5 mg PO QHS 08/15/24 Unknown History tirzepatide 10 mg/0.5 mL 10 mg subcut FR 08/15/24 08/08/24 History subcutaneous pen injector Allergy/AdvReac Type Severity Reaction Status Date / Time dulaglutide (From [facility]) Allergy Severe NUMBNESS Verified 08/15/24 11:20 AROUND THE MOUTH Penicillins Allergy Severe hives and Verified 08/15/24 11:20 swelling Family History Mother Diabetes Dementia Father CVA (cerebral vascular accident) Dementia Surgical History Hx of arthroscopy of right knee Hx of arthroscopy of left knee [place] teeth removed Social History Smoking Status: Never smoker Review of Systems (Anesthesia) ROS Narrative System reviewed and no additional complaints, except as documented.
[2024-08-18 08:02] VITALS: BP 151/93; PULSE 82; RESP 16; TEMP 37; O2SAT 99; BMI 37.6
--- NOTE | 2024-08-18 08:15 | RAD_ITS ---
PROCEDURE: Lumbar spine fluoro REASON FOR EXAM: BILAT MEDIAL BRANCH BLOCK L4 L5 S1 TECHNIQUE: 6 images, 23.2 seconds, 18.30 mGy. COMPARISON: None FINDINGS: Fluoro was provided. RAD/L/S Spine w Bend Min 6 Vw IMPRESSION: Fluoro was provided. Reading Location: [facility]
[2024-08-18 08:35] LABS: Bedside Glucose 175 mg/dL (74-106)
[2024-08-18] MEDS: Bupivacaine 0.25% 30 ML Vial (08:47)
[2024-08-18] MEDS: MethylPREDNISolone Acetate 80 MG/ML Vial (08:47)
[2024-08-18] MEDS: Lidocaine 1% (5 ml sdv) 5 ML Vial (08:48)
[2024-08-18 08:55] VITALS: BP 151/93; BP 155/92; PULSE 78; RESP 18; TEMP 37.5; O2SAT 97
[2024-08-18 09:00] VITALS: BP 151/93; BP 169/104; PULSE 84; RESP 18; O2SAT 97
--- NOTE | 2024-08-18 09:01 | PCM.POST.ANE ---
Anesthesia: Postop Eval I Current Vital Signs Temperature: 98.6 F Pulse Rate: 82 Blood Pressure: 151/93 Respiratory Rate: 16 Pulse Ox: 99 Oxygen Delivery Method: Room Air Assessment Airway patent: Yes Spontaneous unlabored respirations: Yes Mental status: Awake and Calm nausea: No Vomiting: No Anesthesia Complication: No Fluid Hydration Crystalloid volume administer (ml): 200 Total IV fluid infused: 200 Progress Note Anesthesia document: Postop Eval 1 completed: Yes
[2024-08-18 09:02] VITALS: BP 151/93; PULSE 82; RESP 16; TEMP 37; O2SAT 99
[2024-08-18 09:06] VITALS: BP 149/95; BP 151/93; PULSE 77; RESP 18; TEMP 37.4; O2SAT 99
--- NOTE | 2024-08-18 09:10 | POSTOPAN2_ITS ---
Anesthesia Postop Eval I Sum Postop Eval Completion status Anesthesia document: Postop Eval 1 completed: Yes Anesthesia Postop Eval I Summary Anesthesia Postop Eval I Summary: Anesthesia Postop Eval I: Assessment Summary Airway patent Yes 08/18/24 09:02 [email or web address] Spontaneous unlabored Yes 08/18/24 09:02 [email or web address] respirations Mental status Awake,Calm 08/18/24 09:02 [email or web address].[email or web address] nausea No 08/18/24 09:02 [email or web address].[email or web address] Vomiting No 08/18/24 09:02 [email or web address].[email or web address] Anesthesia Postop Eval I: Fluid Summary Crystalloid volume administer 200 08/18/24 09:02 [email or web address].[email or web address] (ml) Colloids volume administered ( ml) Blood Product volume administered (ml) Total IV fluid infused 200 08/18/24 09:02 [email or web address].[email or web address] Anesthesia Postop Eval I: Summary Notes Anesthesia Complication No 08/18/24 09:02 [email or web address] Anesthesia Complication Comment: Post-operative progress note Anesthesia: Postop Eval II Evaluation Mental status: Awake Pain Level: 0 nausea: No Vomiting: No
--- NOTE | 2024-08-18 09:10 | OP.PCM_ITS ---
Operative Report (Standard) Operative Information Date of Procedure: 08/18/24 Pre-Operative Diagnosis: 0 Post-Operative Diagnosis: 0 Surgery/Procedure Performed: 0 creative project manager: No Type of Anesthesia: Local MAC RN Documented Start/Stop Times: Operation Date: 08/18/24 09:15 Case Time Into Pre-Op 08/18/24 07:40 Anesthesia Start 08/18/24 08:38 Into Room 08/18/24 08:38 Procedure Start 08/18/24 08:45 Procedure End 08/18/24 08:49 Anesthesia End 08/18/24 08:51 Out of Room 08/18/24 08:51 Into Recovery 08/18/24 08:55 Out of Recovery 08/18/24 09:06 Into Phase II Recovery 08/18/24 09:07 Procedure Start Time: 09:11 Procedure Stop Time: 09:11 Select all DRAINS/GRAFTS/IMPLANTS that apply: None Estimated Blood Loss: 0 Specimen collected: No Description of surgery: PREOPERATIVE DIAGNOSIS: Lumbosacral spondylosis, lumbosacral degenerative disease, lumbar facet arthropathy POSTOPERATIVE DIAGNOSIS:Lumbosacral spondylosis, lumbosacral degenerative disease, lumbar facet arthropathy PROCEDURE PERFORMED: Bilateral lumbar medial branch block at L4, L5, and S1. ANESTHESIA: MAC. BLOOD LOSS: Minimal. COMPLICATIONS: None. DESCRIPTION OF PROCEDURE: History and physical of today was reviewed. Risks and benefits of the procedure were explained. The patient understood and agreed to proceed. Informed consent was obtained. IV inserted per routine protocol. The patient was taken to the operating room and placed in the prone position with a pillow positioned underneath the abdomen. The lower back was prepped and draped in a sterile fashion using iodine x3. Under fluoroscopy on oblique view, the L4 through S1 vertebral bodies were visualized. The skin and subcutaneous tissue was anesthetized with approximately 5 mL of 1% lidocaine using a 25-gauge regular needle. Under direct visualization with fluoroscopy, at approximately 25-degree angle starting on the left L4, ending on the right L4, passing through the L5-S1 bilaterally, using a 22-gauge 5 inch spinal needle, the needle was advanced via the skin. The tip of the needle was maneuvered and directed towards the superior medial gutter of the transverse process at the vicinity of the medial branch. Once tip of the needle was in contact with the bone, the needle was pulled approximately 2 mm off the bone. After negative aspiration of blood or CSF and confirmation on AP as well as oblique view, a total of 12 mL of preservative-free 0.25% Marcaine with 80 mg of Depo-Medrol was injected in divided doses between those 6 levels. The needles were then removed intact. The patient experienced no sign or symptoms of intrathecal or intravascular injection. The patient experienced no paresthesia. The procedure was completed without any apparent difficulty or any complications. The patient appeared to tolerate it well. ASSESSMENT AND PLAN: This is a 54-year-old male with lumbosacral spondylosis, lumbosacral disc disease, lumbar facet arthropathy status post bilateral lumbar medial branch block at L4-S1, patient will continue his current medications, patient will follow-up in approximately 1-2 weeks for reevaluation Surgical Findings: 0 Complications Complications: No Admit VTE Documentation VTE Present on Admission: No VTE Mechan Device Prophylaxis: None VTE Pharm Prophylaxis ordered?: No
--- NOTE | 2024-08-18 09:10 | PCM.POSTANE2 ---
Anesthesia Postop Eval I Sum Postop Eval Completion status Anesthesia document: Postop Eval 1 completed: Yes Anesthesia Postop Eval I Summary Anesthesia Postop Eval I Summary: Anesthesia Postop Eval I: Assessment Summary Airway patent Yes 08/18/24 09:02 [email or web address] Spontaneous unlabored Yes 08/18/24 09:02 [email or web address] [email or web address] respirations Mental status Awake,Calm 08/18/24 09:02 [email or web address] nausea No 08/18/24 09:02 [email or web address] [email or web address] Vomiting No 08/18/24 09:02 [email or web address] Anesthesia Postop Eval I: Fluid Summary Crystalloid volume administer 200 08/18/24 09:02 [email or web address] (ml) Colloids volume administered ( ml) Blood Product volume administered (ml) Total IV fluid infused 200 08/18/24 09:02 [email or web address] Anesthesia Postop Eval I: Summary Notes Anesthesia Complication No 08/18/24 09:02 [email or web address] Anesthesia Complication Comment: Post-operative progress note Anesthesia: Postop Eval II Evaluation Mental status: Awake Pain Level: 0 nausea: No Vomiting: No
[2024-08-18 09:16] VITALS: BP 151/93
== END 2024-08-18 09:21 | disposition home or self-care (01) ==
PROVIDERS: PCP Nurse Practitioner; Referring Provider Anesthesiology Pain Medicine; Visit Provider Anesthesiology Pain Medicine
PROC: 3E0S3BZ Introduction of Anesthetic Agent into Epidural Space, Percutaneous Approach (ICD-10-PCS; CPT 62322; principal; 2024-08-18 09:10)
DX: M47.816 Spondylosis without myelopathy or radiculopathy, lumbar region (principal); E11.9 Type 2 diabetes mellitus without complications; M47.817 Spondylosis without myelopathy or radiculopathy, lumbosacral region; M51.379 Other intervertebral disc degeneration, lumbosacral region without mention of lumbar back pain or lower extremity pain; K21.9 Gastro-esophageal reflux disease without esophagitis; G47.33 Obstructive sleep apnea (adult) (pediatric); M48.061 Spinal stenosis, lumbar region without neurogenic claudication; M46.1 Sacroiliitis, not elsewhere classified; M46.96 Unspecified inflammatory spondylopathy, lumbar region; Z79.899 Other long term (current) drug therapy
CPT/HCPCS: 64494; 64493; 64483; 72114; 82962

== ENCOUNTER 2024-12-15 05:45 | Day surgery (SDC) | payer BC, SELFPAY ==
--- OUTSIDE RECORDS SUMMARY | 2024-12-15 05:47 | XMS RPT_ITS | CCD ---
Author Organization [facility] Care Team Providers Care Furniture Designer Name Role Phone JORDAN, KATYA L Referring Unavailable Jordan PROFESSOR OF THEOLOGY, PROFESSOR OF THEOLOGY-C Katya Primary Care Provider Juan Diego PROFESSOR OF THEOLOGY, PROFESSOR OF THEOLOGY-C Katya Referring Provider Dr. Jan Farrar Attending Provider Jordan BASTER HAND, Katya L Primary Care Provider [phone] SHANTI CALIXTO Referring Unavailabl SHANTI Rice Attending Unavailabl e JORDAN, KATYA L Primary Care Unavailable SHANTI CALIXTO Attending Unavailabl e JORDAN, KATYA L Primary Care Unavailable Jordan PROFESSOR OF THEOLOGY-C, Katya Primary Care Provider Juan Diego PROFESSOR OF THEOLOGY-C, Katya Attending Provider Juan Diego PROFESSOR OF THEOLOGY-C, Katya Referring Provider Dr. Miguel Haley MD Attending Provider Dr. Miguel Haley MD Referring Provider [phone] Jordan, Katya Primary Care Unavailable Jordan, Katya Attending Unavailable Jordan, Katya Referring Unavailable Miguel Haley Attending Unavailable Miguel Haley Referring Unavailable Juan Diego, Katya Primary Care Unavailable Miguel Haley Referring Unavailable Miguel Haley Attending Unavailable Juan Diego, Katya Primary Care Unavailable Miguel Haley Attending Unavailable Miguel Haley Referring Unavailable Jordan, Katya Primary Care Unavailable Miguel Haley Attending Unavailable Miguel Haley Referring Unavailable Jordan, Katya Primary Care Unavailable Allergies Allergy Classification Reported Allergen(s) Allergy Type Date of Onset Reaction(s) Facility (9 sources) Penicillins; Translations: [PENICILLINS] Propensity to adverse reactions to drug (disorder) 1 Swelling [facility] Other [place] [facility] (4 sources) Cefuroxime Drug Allergy 2 N all the time [facility] (5 sources) dulaglutide Drug Allergy 2 NUMBNESS AROUND THE MOUTH [facility] (1 source) dulaglutide Drug Allergy 5 [facility] Repository Medications Current Medications Medication Drug Class(es) Dates Sig (Normalized) Sig (Original) [id number] 200 actuat albuterol 0.09 mg/actuat metered dose inhaler (11 sources) beta2-Adrenergic Agonist Start: 08-11-2024 Albuterol Sulfate (Ventolin Hfa) 90 mcg/actuation HFA aerosol inhaler Active 2 NMA INHALATION Q4H as needed for asthma 8.5 August 11, 2024 4:11pm Start: 02-22-2021 End: 05-16-2022 Albuterol Sulfate (Ventolin Hfa) 90 mcg/actuation HFA aerosol inhaler Discontinued 2 NMA INHALATION Q4H as needed for asthma 8.5 September 26, 2021 3:53pm May 16, 2022 6:39pm Start: 02-22-2021 End: 05-16-2022 take 1 puff(s) by inhalation every four hours Albuterol Sulfate (Ventolin Hfa) 90 mcg/actuation HFA aerosol inhaler Discontinued 2 PUFF INHALATION Q4H 8.5 September 26, 2021 3:53pm May 16, 2022 6:39pm finasteride 5 mg oral tablet (7 sources) 5-alpha Reductase Inhibitor Start: 05-16-2022 End: 08-15-2024 take 1 tablet by mouth at bedtime Finasteride 5 mg tablet Active 5 mg PO AT BEDTIME August 15, 2024 12:00am hydroCHLOROthiazide 25 mg oral tablet (20 sources) Thiazide Diuretic Start: 04-07-2024 take 1 tablet by mouth once daily Hydrochlorothiazide 25 mg tablet Active 25 mg PO DAILY April 07, 2024 1:00am Start: 04-17-2018 End: 12-17-2023 take 1 tablet by mouth once daily Hydrochlorothiazide 25 mg tablet Discontinued 25 mg PO DAILY January 10, 2023 5:48pm December 17, 2023 9:27am lisinopril 40 mg oral tablet (20 sources) Angiotensin Converting Enzyme Inhibitor Start: 12-13-2017 End: 03-18-2024 take 1 tablet by mouth once daily Lisinopril 40 mg tablet Active 40 mg PO DAILY March 18, 2024 7:55pm 24 hr metoprolol succinate 200 mg extended release oral tablet (20 sources) beta-Adrenergic Loli Start: 12-13-2017 End: 03-18-2024 take 1 tablet by mouth once daily Metoprolol Succinate 200 mg tablet extended release 24 hr Active 200 mg PO DAILY March 18, 2024 7:55pm Start: 12-13-2017 End: 12-13-2017 take 1 tablet by mouth twice daily Metoprolol Tartrate 100 mg tablet Discontinued 100 mg PO TWICE A DAY December 13, 2017 12:00am December 13, 2017 8:17pm pantoprazole 20 mg delayed release oral tablet (11 sources) Proton Pump Inhibitor Start: 04-17-2018 take 2 tablets by mouth once daily Pantoprazole (Protonix) 20 mg tablet,delayed release (DR/EC) Active 40 mg PO DAILY April 17, 2018 3:57pm Start: 12-13-2017 End: 04-17-2018 take 1 tablet by mouth once daily Pantoprazole (Protonix) 20 mg tablet,delayed release (DR/EC) Discontinued 20 mg PO DAILY December 13, 2017 12:00am April 17, 2018 3:58pm take 1 tablet by kristen th once daily pantoprazole (PROTONIX) 40 MG tablet Take 1 (one) tablet (40 mg total) by mouth daily . Active Tirzepatide 10 mg/0.5 mL pen injector (3 sources) Start: 08-15-2024 Tirzepatide 10 mg/0.5 mL pen injector Active 10 mg SC FR August 15, 2024 12:00am Start: 09-18-2023 End: 08-15-2024 Tirzepatide 10 mg/0.5 mL pen injector Discontinued 10 mg SC EVERY WEEK 6.5 September 18, 2023 2:19pm August 15, 2024 11:21am Start: 09-06-2023 End: 09-18-2023 Tirzepatide 10 mg/0.5 mL pen injector Discontinued 10 mg SC EVERY WEEK 6.5 September 06, 2023 12:00am September 18, 2023 2:19pm Completed/Discontinued Medications Medication Drug Class(es) Dates Sig (Normalized) Sig (Original) amLODIPine 5 mg oral tablet (10 sources) Dihydropyridine Calcium Channel Loli Start: 12-13-2017 End: 04-17-2018 take 1 tablet by mouth once daily Amlodipine 5 mg tablet Discontinued 5 mg PO DAILY 90 March 22, 2018 4:34pm April 17, 2018 4:16pm azithromycin 250 mg oral tablet (5 sources) Macrolide Antimicrobial Start: 04-03-2019 End: 04-08-2019 take 2 tablets by mouth once daily, then take 1 tablet by mouth once daily at mealtime Azithromycin 250 mg tablet Discontinued 250 mg PO daily 6 April 03, 2019 1:00am April 07, 2019 1:00am April 08, 2019 1:08am 2 po qd for 1 day then 1 po qd for 4 days with food or after eating baclofen 10 mg oral tablet (5 sources) gamma-Aminobutyric Acid-ergic Agonist Start: 04-19-2021 End: 12-01-2021 take 1 tablet by mouth three times daily Baclofen 10 mg tablet Discontinued 10 mg PO THREE TIMES A DAY 60 April 19, 2021 1:00am December 01, 2021 6:27pm benzonatate 200 mg oral capsule (1 source) Non-narcotic Antitussive Start: 03-29-2023 End: 08-11-2024 take 1 capsule by mouth three times daily as needed for cough Benzonatate 200 mg capsule Discontinued 200 mg PO THREE TIMES A DAY as needed for cough 45 March 29, 2023 1:00am August 11, 2024 4:05pm cefuroxime 500 mg oral tablet (5 sources) Cephalosporin Antibacterial Start: 03-16-2021 End: 04-19-2021 take 1 tablet by mouth twice daily Cefuroxime Axetil 500 mg tablet Discontinued 500 mg PO TWICE A DAY March 16, 2021 1:00am April 19, 2021 5:39pm ciprofloxacin 500 mg oral tablet (20 sources) Quinolone Antimicrobial Start: 09-06-2023 End: 12-07-2023 take 1 tablet by mouth every twelve hours Ciprofloxacin Hcl 500 mg tablet Discontinued 500 mg PO Q12H September 06, 2023 12:00am December 07, 2023 10:21am Start: 05-02-2021 End: 03-30-2022 take 1 tablet by mouth twice daily Ciprofloxacin Hcl 500 mg tablet Discontinued 500 mg PO TWICE A DAY September 26, 2021 3:51pm March 30, 2022 5:03pm Start: 02-22-2021 End: 04-19-2021 take 1 tablet by mouth twice daily Ciprofloxacin Hcl 500 mg tablet Discontinued 500 mg PO TWICE A DAY February 23, 2021 4:12pm April 19, 2021 5:39pm Start: 01-05-2020 End: 02-05-2020 take 1 tablet by mouth twice daily Ciprofloxacin Hcl (Cipro) 500 mg tablet Discontinued 500 mg PO TWICE A DAY January 05, 2020 12:00am February 05, 2020 7:02pm clarithromycin 500 mg oral tablet (11 sources) Macrolide Antimicrobial Start: 08-11-2024 End: 08-15-2024 take 1 tablet by mouth twice daily Clarithromycin 500 mg tablet Discontinued 500 mg PO TWICE A DAY August 11, 2024 4:06pm August 15, 2024 11:21am Start: 03-30-2022 End: 05-16-2022 take 1 tablet by mouth twice daily Clarithromycin 500 mg tablet Discontinued 500 mg PO TWICE A DAY March 30, 2022 1:00am May 16, 2022 6:39pm Start: 04-25-2021 End: 09-26-2021 take 1 tablet by mouth twice daily Clarithromycin 500 mg tablet Discontinued 500 mg PO TWICE A DAY April 25, 2021 1:00am September 26, 2021 3:53pm cyclobenzaprine hydrochloride 10 mg oral tablet (1 source) Muscle Relaxant Start: 08-31-2023 End: 03-18-2024 take 1 tablet by mouth three times daily as needed for muscle spasms Cyclobenzaprine 10 mg tablet Discontinued 10 mg PO THREE TIMES A DAY as needed for Muscle Spasm August 31, 2023 12:00am March 18, 2024 7:54pm doxycycline hyclate 100 mg oral capsule (1 source) Tetracycline-c lass Drug Start: 03-29-2023 End: 12-07-2023 take 1 capsule by mouth twice daily Doxycycline Hyclate 100 mg capsule Discontinued 100 mg PO TWICE A DAY March 29, 2023 1:00am December 07, 2023 10:21am 0.5 ml dulaglutide 3 mg/ml auto-injector (15 sources) GLP-1 Receptor Agonist Start: 04-25-2021 End: 06-09-2021 Dulaglutide (Trulicity) 0.75 mg/0.5 mL pen injector Discontinued 0.75 mg SC EVERY WEEK April 25, 2021 1:00am June 09, 2021 5:44pm Start: 04-25-2021 End: 09-26-2021 Dulaglutide (Trulicity) 1.5 mg/0.5 mL pen injector Discontinued 1.5 mg SC EVERY WEEK 6.5 90 June 09, 2021 5:50pm September 26, 2021 3:48pm empagliflozin 25 mg oral tablet (16 sources) Sodium-Glucose Cotransporter 2 Inhibitor Start: 02-05-2020 End: 12-17-2023 take 1 tablet by mouth once daily Empagliflozin (Jardiance) 25 mg tablet Discontinued 25 mg PO DAILY January 10, 2023 5:47pm December 17, 2023 9:27am hydroxychloroquine sulfate 200 mg oral tablet (5 sources) Antimalarial, Antirheumatic Agent Start: 04-03-2019 End: 01-05-2020 take 1 tablet by mouth twice daily Hydroxychloroquine (Plaquenil) 200 mg tablet Discontinued 200 mg PO TWICE A DAY April 03, 2019 1:00am January 05, 2020 5:28pm metroNIDAZOLE 250 mg oral tablet (5 sources) Nitroimidazole Antimicrobial Start: 05-02-2021 End: 05-12-2021 take 1 tablet by mouth three times daily Metronidazole 250 mg tablet Discontinued 250 mg PO THREE TIMES A DAY 29 01May 02, 2021 1:00am May 11, 2021 1:00am May 12, 2021 1:03am predniSONE 20 mg oral tablet (20 sources) Start: 08-11-2024 End: 08-15-2024 take 2 tablets by mouth once daily Prednisone 20 mg tablet Discontinued 40 mg PO DAILY August 11, 2024 4:07pm August 15, 2024 11:21am Start: 04-25-2021 End: 12-01-2021 take 2 tablets by mouth once daily Prednisone 20 mg tablet Discontinued 40 mg PO DAILY September 26, 2021 3:51pm December 01, 2021 6:27pm Start: 04-25-2021 End: 12-01-2021 take 40 mg by mouth once daily Prednisone Discontinued 40 MG PO DAILY September 26, 2021 3:51pm December 01, 2021 6:27pm Start: 05-24-2020 End: 04-19-2021 take 2 tablets by mouth once daily Prednisone 20 mg tablet Discontinued 40 mg PO DAILY February 22, 2021 8:05pm April 19, 2021 5:39pm Start: 05-24-2020 End: 04-19-2021 take 40 mg by mouth once daily Prednisone Discontinued 40 MG PO DAILY February 22, 2021 8:05pm April 19, 2021 5:39pm sulfamethoxazole 800 mg / trimethoprim 160 mg oral tablet (10 sources) Dihydrofolate Reductase Inhibitor Antibacterial, Sulfonamide Antimicrobial Start: 05-24-2020 End: 06-03-2020 Sulfamethoxazole-Trimethopri m 800-160 mg tablet Discontinued 1 {tbl} PO TWICE A DAY 19 01May 24, 2020 1:00am June 02, 2020 1:00am June 03, 2020 1:02am Start: 05-24-2020 End: 06-03-2020 take 1 tablet by mouth twice daily Sulfamethoxazole-Trimethoprim Discontinu ed 1 TABLET PO TWICE A DAY 19 01May 24, 2020 1:00am June 03, 2020 1:02am Start: 01-21-2018 End: 01-31-2018 Sulfamethoxazole-Trimethopri m 800-160 mg tablet Discontinued 1 {tbl} PO TWICE A DAY 19 01January 21, 2018 12:00am January 30, 2018 12:00am January 31, 2018 12:07am Start: 01-21-2018 End: 01-31-2018 take 1 tablet by mouth twice daily Sulfamethoxazole-Trimethoprim Discontinu ed 1 TABLET PO TWICE A DAY 19 01January 21, 2018 12:00am January 31, 2018 12:07am tamsulosin hydrochloride 0.4 mg oral capsule (20 sources) alpha-Adrenergic Loli Start: 12-13-2017 End: 06-02-2022 take 1 capsule by mouth once daily Tamsulosin 0.4 mg capsule Discontinued 0.4 mg PO DAILY March 30, 2022 5:03pm March 3rd, 2023 9:24am Tirzepatide (Mounjaro) 5 mg/0.5 mL pen injector (10 sources) Start: 12-01-2021 End: 03-29-2023 Tirzepatide (Mounjaro) 5 mg/0.5 mL pen injector Discontinued 5 mg SC EVERY WEEK 2 December 01, 2021 6:29pm March 29, 2023 5:38pm Start: 12-01-2021 Tirzepatide (M ounjaro) 5 mg/0.5 mL pen injector Active 5 MG SC EVERY WEEK 2 December 01, 2021 6:29pm Start: 12-01-2021 Tirzepatide (M ounjaro) 5 mg/0.5 mL pen injector Active 5 MG SC EVERY WEEK 2 December 01, 2021 5:29pm Start: 09-26-2021 End: 12-01-2021 Tirzepatide (Mounjaro) 5 mg/ 0.5 mL pen injector Discontinued 5 mg SC EVERY WEEK September 26, 2021 12:00am December 01, 2021 6:29pm Start: 09-26-2021 End: 12-01-2021 Tirzepatide (Mounjaro) 5 mg/ 0.5 mL pen injector Discontinued 5 MG SC EVERY WEEK September 26, 2021 12:00am December 01, 2021 6:29pm Start: 09-26-2021 End: 12-01-2021 Tirzepatide (Mounjaro) 5 mg/ 0.5 mL pen injector Discontinued 5 MG SC EVERY WEEK September 25, 2021 11:00pm December 01, 2021 5:29pm Tirzepatide 7.5 mg/0.5 mL pe n injector (1 source) Start: 03-29-2023 End: 09-06-2023 Tirzepatide 7.5 mg/0.5 mL pe n injector Discontinued 7.5 mg SC EVERY WEEK March 29, 2023 1:00am September 06, 2023 3:36pm tumeric (4 sources) Start: 01-05-2020 End: 04-19-2021 tumeric Discontinued PO Octo 2019 12:00am April 19, 2021 5:39pm Start: 01-05-2020 End: 04-19-2021 tumeric Discontinued PO Oct2019 11:00pm April 19, 2021 4:39pm tumeric 500 mg capsule (1 source) Start: 01-05-2020 End: 04-19-2021 tumeric 500 mg capsule Disco ntinued PO January 05, 2020 12:00am April 19, 2021 5:39pm Problems Active Problems Problem Classification Problem Date Documented Da te Episodic/Chronic Abdominal pain (6 sources) Left flank pain; Translations: [Unspecified abdominal pain] 04-19-2021 Episodic Administrative/social admission (3 sources) Medicolegal procedure status; Translations: [Encounter for examination and observation for other specified reasons] Onset: 03-19-2024 03-19-2024 Episodic Asthma (5 sources) Asthmatic bronchitis; Translations: [Unspecified asthma, uncomplicated] 02-22-2021 Chronic Diabetes mellitus with complications (6 sources) Type II diabetes mellitus uncontrolled; Translations: [Uncontrolled type 2 diabetes mellitus] Onset: 04-19-2024 04-19-2021 Chronic Diabetes mellitus without complication (5 sources) Type 2 diabetes mellitus; Translations: [Type 2 diabetes mellitus without complications] 01-06-2020 Chronic Essential hypertension (5 sources) Hypertensive disorder; Translations: [Essential (primary) hypertension] 04-05-2019 Chronic Genitourinary symptoms and ill-defined conditions (4 sources) Urinary incontinence; Translations: [Unspecified urinary incontinence] 05-16-2022 Chronic Genitourinary symptoms and ill-defined conditions (8 sources) Increased frequency of urination; Translations: [Frequency of micturition] 05-16-2022 Episodic Hyperplasia of prostate (5 sources) Benign prostatic hyperplasia; Translations: [Benign prostatic hyperplasia without lower urinary tract symptoms] 04-05-2019 Chronic Lymphadenitis (5 sources) Head and neck lymphadenopathy; Translations: [Generalized enlarged lymph nodes] 05-24-2020 Episodic Other connective tissue disease (1 source) Cramp; Translations: [Cramp and spasm] 09-08-2023 Episodic Other gastrointestinal disorders (1 source) Diarrhea; Translations: [Diarrhea, unspecified] 12-07-2023 Episodic Other nervous system disorders (4 sources) Numbness of lower limb ; Translations: [Anesthesia of skin] 05-16-2022 Episodic Other nutritional; endocrine; and metabolic disorders (4 sources) Weight gain; Translations: [Abnormal weight gain] 12-13-2017 Episodic Other nutritional; endocrine; and metabolic disorders (4 sources) Weight loss; Translations: [Abnormal weight loss] 02-05-2020 Episodic Other nutritional; endocrine; and metabolic disorders (1 source) Weight increased; Translations: [Abnormal weight gain] 12-13-2017 Episodic Other nutritional; endocrine; and metabolic disorders (1 source) Weight decreased; Translations: [Abnormal weight loss] 02-05-2020 Episodic Other upper respiratory infections (1 source) Acute maxillary sinusitis; Translations: [Acute maxillary sinusitis, unspecified] 03-29-2023 Episodic Otitis media and related conditions (10 sources) Otitis media; Translations: [Otitis media, unspecified, left ear] 04-05-2019 Episodic Peripheral and visceral atherosclerosis (5 sources) Peripheral vascular disease; Translations: [Peripheral vascular disease, unspecified] 03-22-2018 Chronic Residual codes; unclassified (1 source) Obstructive sleep apnea (adult) (pediatric); Translations: [Obstructive sleep apnea (adult) (pediatric)] Onset: 04-25-2018 Chronic Residual codes; unclassified (5 sources) Obstructive sleep apnea syndrome; Translations: [Obstructive sleep apnea (adult) (pediatric)] 03-27-2018 Chronic Residual codes; unclassified (5 sources) Edema; Translations: [Edema, unspecified] 03-22-2018 Episodic Skin and subcutaneous tissue infections (10 sources) Cellulitis of leg, excluding foot; Translations: [Cellulitis of right lower limb] 01-21-2018 Episodic Spondylosis; intervertebral disc disorders; other back problems (4 sources) Lumbar spondylosis; Translations: [Spondylosis without myelopathy or radiculopathy, lumbar region] Onset: 08-22-2024 06-02-2022 Chronic Superficial injury; contusion (3 sources) Contusion of left hand, initial encounter; Translations: [Contusion of hand(s)] Onset: 03-19-2024 03-19-2024 Episodic Unclassified (1 source) Low back pain, unspecified; Translations: [Low back pain, unspecified] Onset: 05-01-2024 Urinary tract infections (5 sources) Cystitis; Translations: [Cystitis, unspecified without hematuria] 01-06-2020 Episodic Varicose veins of lower extremity (5 sources) Varicose veins of lower extremity; Translations: [Asymptomatic varicose veins of unspecified lower extremity] 03-22-2018 Episodic Past or Other Problems Problem Classification Problem Date Documented Da te Episodic/Chronic Spondylosis; intervertebral disc disorders; other back problems (7 sources) Low back pain; Translations: [Low back pain] Onset: 01-10-2024 05-16-2022 Episodic Results Test Name Value Interpretation Reference Range Facility Bedside Glucoseon 08-18-2024 [facility] GLU 175 mg/dL High 74-106 [facility] Comment on above: Result Comment: MARIA ISABEL RAPHAEL OF PATIENT CARE PER NURSING PROTOCOL Performed By: #### L 501.080 #### [facility] [address] [place], [address] [facility] deOrdered By: Miguel Haley on 08-18-2024 Glucose [Mass/Vol] 175 mg/dL High 74-106 [facility] Comment on above: MANAGEMENT OF PATIEN T CARE PER NURSING PROTOCOL L/S Spine w Bend Min 6 Vwon 08-18-2024 L/S Spine w Bend Min 6 Vw [facility] Imaging Services [address] [place], [place] [id number] L/S Spine w Bend Min 6 Vw MR#: [id number] Acct: [id number] Name: PATRICK FOUNTAIN Rep #: [id number] : 1970 M 54 From: Neymar Nguyen MD PCP: TERA Sandhu Status: [facility] Study: L/S Spine w Bend Min 6 Vw Date of Exam: Exam# [id number] Ordering Dr: Miguel Haley MD PROCEDURE: Lumbar spine fluoro REASON FOR EXAM: BILAT MEDIAL BRANCH BLOCK L4 L5 S1 TECHNIQUE: 6 images, 23.2 seconds, 18.30 mGy. COMPARISON: None FINDINGS: Fluoro was provided. RAD/L/S Spine w Bend Min 6 Vw IMPRESSION: Fluoro was provided. Reading Location: [facility] CC: PROFESSOR OF THEOLOGY-C Katya Jordan; Dr. Miguel Haley MD Radiator Specialist: Signed [facility] MR/POSTOP.ANEon 08-18-2024 MR/POSTOP.[facility] Medical Records Department [address] [place] [address] Anesthesia Postop Eval I 08/18/24900 MR#: [id number] Acct: [id number] Name: PATRICK FOUNTAIN Rep #: [id number] : 1970 54 From: Blaine Sewell CRNA PCP: RADHA SandhuC Status:REG SDC Y Race: C Location: [facility] Anesthesia: Postop Eval I Current Vital Signs Temperature: 98.6 F Pulse Rate: 82 Blood Pressure: 151/93 Respiratory Rate: 16 Pulse Ox: 99 Oxygen Delivery Method: Room Air Assessment Airway patent: Yes Spontaneous unlabored respirations: Yes Mental status: Awake and Calm nausea: No Vomiting: No Anesthesia Complication: No Fluid Hydration Crystalloid volume administer (ml): 200 Total IV fluid infused: 200 Progress Note Anesthesia document: Postop Eval 1 completed: Yes 08/18/24901 Date Blaine Sewell CRNA Cosigner Signature: Date CC: Signed [facility] MR/[email or web address] 08-18-2024 MR/POSTOPAN2 [facility] Medical Records Department [address] [place] [address] Anesthesia Postop Eval II 08/18/24909 MR#: [id number] Acct: [id number] Name: PATRICK FOUNTAIN Rep #: [id number] : 1970 54 From: Tahir Vidales MD PCP: TERA Sandhu Status:REG SDC Y Race: C Location: [facility] Anesthesia Postop Eval I Sum Postop Eval Completion status Anesthesia document: Postop Eval 1 completed: Yes Anesthesia Postop Eval I Summary Anesthesia Postop Eval I Summary: Anesthesia Postop Eval I: Assessment Summary Airway patent Yes 08/18/24 09:02 PROGRAM [email or web address] Spontaneous unlabored Yes 08/18/24 09:02 PROGRAM [email or web address] respirations Mental status Awake,Calm 08/18/24 09:02 PROGRAM [email or web address] nausea No 08/18/24 09:02 PROGRAM [email or web address] Vomiting No 08/18/24 09:02 PROGRAM [email or web address].[email or web address] Anesthesia Postop Eval I: Fluid Summary Crystalloid volume administer 200 08/18/24 09:02 PROGRAM [email or web address] (ml) Colloids volume administered ( ml) Blood Product volume administered (ml) Total IV fluid infused 200 08/18/24 09:02 PROGRAM HOST.[email or web address] Anesthesia Postop Eval I: Summary Notes Anesthesia Complication No 08/18/24 09:02 PROGRAM [email or web address] Anesthesia Complication Comment: Post-operative progress note Anesthesia: Postop Eval II Evaluation Mental status: Awake Pain Level: 0 nausea: No Vomiting: No 08/18/24909 Date Tahir Vidales MD Cosigner Signature: Date CC: Signed Normal [facility] Operative Reporton 5 Operative Report [facility] Medical Records Department [address] [place] [address] Operative Report 08/18/24909 MR#: [id number] Acct: [id number] Name: PATRICK FOUNTAIN Rep #: [id number] : 1970 54 From: Miguel Haley MD PCP: TERA Sandhu Status:REG [facility] Location: [facility] Operative Report (Standard) Operative Information Date of Procedure: 08/18/24 Pre-Operative Diagnosis: 0 Post-Operative Diagnosis: 0 Surgery/Procedure Performed: 0 turntable worker: No Type of Anesthesia: Local MAC RN Documented Start/Stop Times: Operation Date: 08/18/24 09:15 Case Time Into Pre-Op 08/18/24 07:40 Anesthesia Start 08/18/24 08:38 Into Room 08/18/24 08:38 Procedure Start 08/18/24 08:45 Procedure End 08/18/24 08:49 Anesthesia End 08/18/24 08:51 Out of Room 08/18/24 08:51 Into Recovery 08/18/24 08:55 Out of Recovery 08/18/24 09:06 Into Phase II Recovery 08/18/24 09:07 Procedure Start Time: 09:11 Procedure Stop Time: 09:11 Select all DRAINS/GRAFTS/IMPLA NTS that apply: None Estimated Blood Loss: 0 Specimen collected: No Description of surgery: PREOPERATIVE DIAGNOSIS: Lumbosacral spondylosis, lumbosacral degenerative disease, lumbar facet arthropathy POSTOPERATIVE DIAGNOSIS:Lumbosacr al spondylosis, lumbosacral degenerative disease, lumbar facet arthropathy PROCEDURE PERFORMED: Bilateral lumbar medial branch block at L4, L5, and S1. ANESTHESIA: MAC. BLOOD LOSS: Minimal. COMPLICATIONS: None. DESCRIPTION OF PROCEDURE: History and physical of today was reviewed. Risks and benefits of the procedure were explained. The patient understood and agreed to proceed. Informed consent was obtained. IV inserted per routine protocol. The patient was taken to the operating room and placed in the prone position with a pillow positioned underneath the abdomen. The lower back was prepped and draped in a sterile fashion using iodine x3. Under fluoroscopy on oblique view, the L4 through S1 vertebral bodies were visualized. The skin and subcutaneous tissue was anesthetized with approximately 5 mL of 1% lidocaine using a 25-gauge regular needle. Under direct visualization with fluoroscopy, at approximately 25-degree angle starting on the left L4, ending on the right L4, passing through the L5-S1 bilaterally, using a 22-gauge 5 inch spinal needle, the needle was advanced via the skin. The tip of the needle was maneuvered and directed towards the superior medial gutter of the transverse process at the vicinity of the medial branch. Once tip of the needle was in contact with the bone, the needle was pulled approximately 2 mm off the bone. After negative aspiration of blood or CSF and confirmation on AP as well as oblique view, a total of 12 mL of preservative-free 0.25% Marcaine with 80 mg of Depo-Medrol was injected in divided doses between those 6 levels. The needles were then removed intact. The patient experienced no sign or symptoms of intrathecal or intravascular injection. The patient experienced no paresthesia. The procedure was completed without any apparent difficulty or any complications. The patient appeared to tolerate it well. ASSESSMENT AND PLAN: This is a 54-year-old male with lumbosacral spondylosis, lumbosacral disc disease, lumbar facet arthropathy status post bilateral lumbar medial branch block at L4-S1, patient will continue his current medications, patient will follow-up in approximately 1-2 weeks for reevaluation Surgical Findings: 0 Complications Complications: No Admit VTE Documentation VTE Present on Admission: No VTE Mechan Device Prophylaxis: None VTE Pharm Prophylaxis ordered?: No 08/18/24 0911 Cosigner Signature (if applicable): CC: PROFESSOR OF THEOLOGY-C Katya Jordan; Dr. Miguel Haley MD Signed Normal [facility] Bedside Glucoseon 04-07-2024 FINGERSTICK GLU 236 mg/dL High 74-106 [facility] Comment on above: Result Comment: MARIA ISABEL RAPHAEL OF PATIENT CARE PER NURSING PROTOCOL Performed By: #### L 501.080 #### [facility] [address] [place], [address] L/S Spine Min 4 Viewson L/S Spine Min 4 Views [facility] Imaging Services [address] [place] [address] L/S Spine Min 4 Views MR#: [id number] Acct: [id number] Name: PATRICK FOUNTAIN Rep #: [id number] : 1970 M 53 From: Augustin De Anda MD PCP: TERA Sandhu Status: [facility] Study: L/S Spine Min 4 Views Date of Exam: 04/07/24 Exam# [id number] Ordering Dr: Miguel Haley MD -[id number] PROCEDURE: Bilateral lumbar nerve block DATE OF EXAMINATION: 04/07/2024 INDICATION: Male, 53 years old. Acute pain PHYSICIAN: Miguel Haley MD FLUOROSCOPY TIME (if supplied): (16.6) seconds 6 images obtained RADIATION DOSAGE (If Supplied By Facility): CTDIvol = ( 18.04 ) mGy, DLP = ( ) mGycm CONSENT: The risks, benefits and alternatives to the procedure were explained to the patient, and the patient agreed to the procedure and signed the consent. SEDATION: Local STERILE BARRIER TECHNIQUE: The following sterile barrier precautions were used during the procedure: hand hygiene; use of 2% chlorhexidine aseptic; use of a cap, mask, sterile gown, sterile gloves, sterile full body drape, and a large sterile sheet. PROCEDURE/TECHNIQUE : (All elements of maximal sterile barrier technique followed, including US elements as applicable) The risks, benefits, and alternatives to the procedure were explained to patient, and the patient agreed to the procedure and signed a consent form for the procedure. A timeout was performed to confirm the patient''s identity, the type of procedure, to be performed and the site of entry. Fluoroscopy provided for bilateral lumbar spine nerve block, no complications noted RAD/L/S Spine Min 4 Views IMPRESSION: No complications noted during bilateral lumbar spine nerve block Electronically Signed: Aristides De Anda MD at 11:12 EST , CC: TERA Jordan; Dr. Miguel Haley MD Radiator Specialist: Signed [facility] MR/POSTOP.[facility] 04-07-2024 MR/POSTOP.[facility] Medical Records Department [address] [place] [address] Anesthesia Postop Eval I 04/07/24 1023 MR#: [id number] Acct: [id number] Name: PATRICK FOUNTAIN Rep #: [id number] : 1970 53 From: Blaine Sewell CRNA PCP: TERA Sandhu Status:[facility] Y Race: C Location: [facility] [place] Anesthesia: Postop Eval I Current Vital Signs Temperature: 97.8 F Pulse Rate: 81 Blood Pressure: 156/87 Respiratory Rate: 15 Pulse Ox: 97 Oxygen Delivery Method: Room Air Assessment Airway patent: No Spontaneous unlabored respirations: No Mental status: Awake and Calm nausea: No Vomiting: No Anesthesia Complication: No Fluid Hydration Crystalloid volume administer (ml): 30 Total IV fluid infused: 30 Progress Note Anesthesia document: Postop Eval 1 completed: Yes 04/07/24 1024 Date Blaine Sewell PROGRAM HOST Cosigner Signature: Date CC: Signed Normal [facility] MR/VOHNXHAS0xt [facility]-07-2024 [facility] Medical Records Department [address] [place] [address] Anesthesia Postop Eval II 04/07/24 1042 MR#: [id number] Acct: [id number] Name: PATRICK FOUNTAIN Rep #: [id number] : 1970 53 From: Tahir Vidales MD PCP: TERA Sandhu Status:[facility] Y Race: C Location: [facility] [place] Anesthesia Postop Eval I Sum Postop Eval Completion status Anesthesia document: Postop Eval 1 completed: Yes Anesthesia Postop Eval I Summary Anesthesia Postop Eval I Summary: Anesthesia Postop Eval I: Assessment Summary Airway patent No 04/07/24 10:24 [email or web address] Spontaneous unlabored No 04/07/24 10:24 PROGRAM [email or web address] respirations Mental status Awake,Calm 04/07/24 10:24 PROGRAM HOST.JBLOU nausea No 04/07/24 10:24 PROGRAM HOST.JBLOU Vomiting No 04/07/24 10:24 PROGRAM [email or web address].[email or web address] Anesthesia Postop Eval I: Fluid Summary Crystalloid volume administer 30 04/07/24 10:24 PROGRAM [email or web address].[email or web address] (ml) Colloids volume administered ( ml) Blood Product volume administered (ml) Total IV fluid infused 30 04/07/24 10:24 PROGRAM [email or web address].JBLOU Anesthesia Postop Eval I: Summary Notes Anesthesia Complication No 04/07/24 10:24 PROGRAM [email or web address].JBLOU Anesthesia Complication Comment: Post-operative progress note Anesthesia: Postop Eval II Evaluation Mental status: Awake Pain Level: 0 nausea: No Vomiting: No 04/07/24 1042 Date Tahir Woodard Signature: Date CC: Signed Normal [facility] Operative Reporton 5 Operative Report [facility] Medical Records Department [address] [place] [address] Operative Report 04/07/24 0932 MR#: [id number] Acct: [id number] Name: PATRICK FOUNTAIN SANDRA Rep #: [id number] : 1970 53 From: Miguel Haley MD PCP: TERA Sandhu Status:[facility] Location: [place] [address] Operative Report (Standard) Operative Information Date of Procedure: 04/07/24 Pre-Operative Diagnosis: 1 Post-Operative Diagnosis: 1 Surgery/Procedure Performed: 1 turntable worker: No Type of Anesthesia: MAC and Topical Anesth RN Documented Start/Stop Times: Operation Date: 04/07/24 09:00 Case Time Into Pre-Op 04/07/24 07:40 Out of Pre-Op 04/07/24 09:06 Anesthesia Start 04/07/24 09:21 Into Room 04/07/24 09:21 Procedure Start 04/07/24 09:26 Procedure End 04/07/24 09:30 Procedure Start Time: 09:33 Procedure Stop Time: 09:33 Select all DRAINS/GRAFTS/IMPLA NTS that apply: None Estimated Blood Loss: 1 Specimen collected: No Description of surgery: PREOPERATIVE DIAGNOSIS: Lumbosacral spondylosis, lumbosacral degenerative disease, lumbar facet arthropathy POSTOPERATIVE DIAGNOSIS:Lumbosacr al spondylosis, lumbosacral degenerative disease, lumbar facet arthropathy PROCEDURE PERFORMED: Bilateral lumbar medial branch block at L4, L5, and S1. ANESTHESIA: MAC. BLOOD LOSS: Minimal. COMPLICATIONS: None. DESCRIPTION OF PROCEDURE: History and physical of today was reviewed. Risks and benefits of the procedure were explained. The patient understood and agreed to proceed. Informed consent was obtained. IV inserted per routine protocol. The patient was taken to the operating room and placed in the prone position with a pillow positioned underneath the abdomen. The lower back was prepped and draped in a sterile fashion using iodine x3. Under fluoroscopy on oblique view, the L4 through S1 vertebral bodies were visualized. The skin and subcutaneous tissue was anesthetized with approximately 5 mL of 1% lidocaine using a 25-gauge regular needle. Under direct visualization with fluoroscopy, at approximately 25-degree angle starting on the left L4, ending on the right L4, passing through the L5-S1 bilaterally, using a 22-gauge 5 inch spinal needle, the needle was advanced via the skin. The tip of the needle was maneuvered and directed towards the superior medial gutter of the transverse process at the vicinity of the medial branch. Once tip of the needle was in contact with the bone, the needle was pulled approximately 2 mm off the bone. After negative aspiration of blood or CSF and confirmation on AP as well as oblique view, a total of 12 mL of preservative-free 0.25% Marcaine with 80 mg of Depo-Medrol was injected in divided doses between those 6 levels. The needles were then removed intact. The patient experienced no sign or symptoms of intrathecal or intravascular injection. The patient experienced no paresthesia. The procedure was completed without any apparent difficulty or any complications. The patient appeared to tolerate it well. ASSESSMENT AND PLAN: This is a 53-year-old male with lumbosacral spondylosis, lumbosacral disc disease, lumbar facet arthropathy status post bilateral lumbar medial branch block at L4-S1, patient will continue his current medications, patient will follow-up in approximately 1-2 weeks for reevaluation Surgical Findings: 1 Complications Complications: No Admit VTE Documentation VTE Present on Admission: No VTE Mechan Device Prophylaxis: None VTE Pharm Prophylaxis ordered?: No 04/07/24 0936 Cosigner Signature (if applicable): CC: TERA Jordan; Dr. Miguel Haley MD Signed Normal [facility] XR HAND LEFT 3+ VIEWS (STAND KEITH)on 03-19-2024 XR HAND LEFT 3+ VIEWS (STANDARD) EXAMINATION: XR HAND LEFT 3+ VIEWS (STANDARD) 03/19/2024 11:46 am HISTORY: ORDERING SYSTEM PROVIDED HISTORY: Point tender over the distal third metacarpal. Diffuse tenderness over the dorsum of the hand, crush injury today at work., TECHNOLOGIST PROVIDED HISTORY: Injury/Trauma Reason for exam: left hand pain Cancer History: - Surgery, RadiationHistory: - Encounter Type: Initial Mechanism of injury: crush injury ORDERING SYSTEM PROVIDED DIAGNOSIS CODES: S60.222A Contusion of dorsum of left hand COMPARISON: None FINDINGS: Three views. IMPRESSION: No acute fracture or malalignment. Workstation ID: [id number] Dictated by: SUMEET HUYNH I on SunMar 19, 2024 1:15:09 PM EST Transcribed by: SUMEET HUYNH I on SunMar 19, 2024 1:15:09 PM EST Finalized by: SUMEET HUYNH I on SunMar 19, 2024 1:15:09 PM EST Normal [facility] Comment on above: Order Comment: Injur y/Trauma or Illness?:Injury/Trauma How long have you had these symptoms (acute/chronic)?:Acute Reason for exam?:left hand pain History of cancer?:- Surgeries, chemotherapy, or radiation?:- Type of Exam?:Initial Mechanism of injury?:crush injury XR Hand - left 3 Viewson No acute fracture or malalignment. Workstation ID: [id number] [employer] EXAMINATION: XR HAND LEFT 3+ VIEWS (STANDARD) 03/19/2024 11:46 am HISTORY: ORDERING SYSTEM PROVIDED HISTORY: Point tender over the distal third metacarpal. Diffuse tenderness over the dorsum of the hand, crush injury today at work., TECHNOLOGIST PROVIDED HISTORY: Injury/Trauma Reason for exam: left hand pain Cancer History: - Surgery, RadiationHistory: - Encounter Type: Initial Mechanism of injury: crush injury ORDERING SYSTEM PROVIDED DIAGNOSIS CODES: S60.222A Contusion of dorsum of left hand COMPARISON: None FINDINGS: Three views. GE RIS Sumeet Huynh MD - 03/19/2024 EXAMINATION: XR HAND LEFT 3+ VIEWS (STANDARD) 03/19/2024 11:46 am HISTORY: ORDERING SYSTEM PROVIDED HISTORY: Point tender over the distal third metacarpal. Diffuse tenderness over the dorsum of the hand, crush injury today at work., TECHNOLOGIST PROVIDED HISTORY: Injury/Trauma Reason for exam: left hand pain Cancer History: - Surgery, RadiationHistory: - Encounter Type: Initial Mechanism of injury: crush injury ORDERING SYSTEM PROVIDED DIAGNOSIS CODES: S60.222A Contusion of dorsum of left hand COMPARISON: None FINDINGS: Three views. IMPRESSION: No acute fracture or malalignment. Workstation ID: [id number] [facility] Radiology Study observation (narrative) [facility] XR Hand - left 3 ViewsOrdere d By: Sumeet Huynh on 03-19-2024 [facility] Work Phone: CBC W/Diff, Automatedon 03-02 Absolute Lymph 3.08 X10 3/uL Normal 0.83-4.51 [facility] Comment on above: Performed By: #### L 100.0100, L501.9940, L500.4050, L500.4100 #### [facility] [address] [place], [address] Absolute Neut 5.2 X10 3/uL Normal 2.0-7.7 [facility] Comment on above: Performed By: #### L 100.0100, L501.9940, L500.4050, L500.4100 #### [facility] [address] [place], [address] Basophils/100 WBC (Bld) 0.7 % Normal 0-1 [facility] Comment on above: Performed By: #### L 100.0100, L501.9940, L500.4050, L500.4100 #### [facility] [address] [place], [address] Eosinophils/100 WBC (Bld) 1.9 % Normal 0-5 [facility] Comment on above: Performed By: #### L 100.0100, L501.9940, L500.4050, L500.4100 #### [facility] [address] [place], [address] Erythrocyte distribution width (RBC) [Ratio] 12.9 % Normal 11.6-14.6 [facility] Comment on above: Performed By: #### L 100.0100, L501.9940, L500.4050, L500.4100 #### [facility] [address] [place], [address] Hematocrit (Bld) [Volume fraction] 47.3 % Normal 40-54 [facility] Comment on above: Performed By: #### L 100.0100, L501.9940, L500.4050, L500.4100 #### [facility] [address] [place], [address] Hemoglobin (Bld) [Mass/Vol] 15.7 g/dL Normal 13.0-16.5 [facility] Comment on above: Performed By: #### L 100.0100, L501.9940, L500.4050, L500.4100 #### [facility] [address] [place], [address] IG% 0.400 Normal 0.0-0.9 [facility] Comment on above: Result Comment: IG% - Immature Granulocytes (promyelocytes, myelocytes and metamyelocytes) > 1% indicates that a LEFT SHIFT is Present. Performed By: #### L 100.0100, L501.9940, L500.4050, L500.4100 #### [facility] [address] [place], [address] Lymphocytes/100 WBC (Bld) 34.3 % Normal 19-41 [facility] Comment on above: Performed By: #### L 100.0100, L501.9940, L500.4050, L500.4100 #### [facility] [address] [place], [address] MCH (RBC) [Entitic mass] 29.5 pg Normal 27.0-32.0 [facility] Comment on above: Performed By: #### L 100.0100, L501.9940, L500.4050, L500.4100 #### [facility] [address] [place], [address] MCHC (RBC) [Mass/Vol] 33.2 g/dL Normal 32-36 [facility] Comment on above: Performed By: #### L 100.0100, L501.9940, L500.4050, L500.4100 #### [facility] [address] [place], [address] MCV (RBC) [Entitic vol] 88.7 fL Normal 80-94 [facility] Comment on above: Performed By: #### L 100.0100, L501.9940, L500.4050, L500.4100 #### [facility] [address] [place], [address] Monocytes/100 WBC (Bld) 5.1 % Normal 0-10 [facility] Comment on above: Performed By: #### L 100.0100, L501.9940, L500.4050, L500.4100 #### [facility] [address] [place], [address] Neutrophils/100 WBC (Bld) 57.6 % Normal 47-70 [facility] Comment on above: Performed By: #### L 100.0100, L501.9940, L500.4050, L500.4100 #### [facility] [address] [place], [address] Nucleated RBC (Bld) [#/Vol] 0 10*3/uL Normal 0-5 [facility] Comment on above: Performed By: #### L 100.0100, L501.9940, L500.4050, L500.4100 #### [facility] [address] [place], [address] Platelet mean volume (Bld) [Entitic vol] 10.3 fL Normal 6.2-12.0 [facility] Comment on above: Performed By: #### L 100.0100, L501.9940, L500.4050, L500.4100 #### [facility] [address] [place], [address] Platelets (Bld) [#/Vol] 281 10*3/uL Normal 150-450 [facility] Comment on above: Performed By: #### L 100.0100, L501.9940, L500.4050, L500.4100 #### [facility] [address] [place], [address] RBC (Bld) [#/Vol] 5.33 10*6/uL Normal 4.6-6.2 [facility] Comment on above: Performed By: #### L 100.0100, L501.9940, L500.4050, L500.4100 #### [facility] [address] [place], [address] RDW SD 42.1 fl Normal 35.1-43.9 [facility] Comment on above: Performed By: #### L 100.0100, L501.9940, L500.4050, L500.4100 #### [facility] [address] [place], [address] WBC (Bld) [#/Vol] 9.0 10*3/uL Normal 4.4-11.0 [facility] Comment on above: Performed By: #### L 100.0100, L501.9940, L500.4050, L500.4100 #### [facility] [address] [place], [address] Comprehensive Metabolic Prof [facility] 03-18-2024 Albumin [Mass/Vol] 3.5 g/dL Normal 3.2-5.0 [facility] Comment on above: Performed By: #### L 100.0100, L501.9940, L500.4050, L500.4100 #### [facility] [address] [place], [address] Albumin/Globulin [Mass ratio] 0.9 {ratio} Normal 0.9-2.4 [facility] Comment on above: Performed By: #### L 100.0100, L501.9940, L500.4050, L500.4100 #### [facility] [address] [place], [address] ALK P 71 U/L Normal 45-117 [facility] Comment on above: Performed By: #### L 100.0100, L501.9940, L500.4050, L500.4100 #### [facility] [address] [place], [address] ALT [Catalytic activity/Vol] 36 U/L Normal 16-61 [facility] Comment on above: Performed By: #### L 100.0100, L501.9940, L500.4050, L500.4100 #### [facility] [address] [place], [address] AST [Catalytic activity/Vol] 22 U/L Normal 15-37 [facility] Comment on above: Performed By: #### L 100.0100, L501.9940, L500.4050, L500.4100 #### [facility] [address] [place], [address] Bilirubin [Mass/Vol] 1.00 mg/dL Normal 0.20-1.00 [facility] Comment on above: Result Comment: For patients on eltrombopag therapy, use of Dimension [place] TBIL is not recommended. Performed By: #### L 100.0100, L501.9940, L500.4050, L500.4100 #### [facility] [address] [place], [address] BUN/CRE 15.9 RATIO Normal 10-20 [facility] Comment on above: Performed By: #### L 100.0100, L501.9940, L500.4050, L500.4100 #### [facility] [address] [place], [address] CA,Total 9.0 mg/dL Normal 8.5-10.1 [facility] Comment on above: Performed By: #### L 100.0100, L501.9940, L500.4050, L500.4100 #### [facility] [address] [place], [address] Chloride [Moles/Vol] 102 mmol/L Normal 98-107 [facility] Comment on above: Performed By: #### L 100.0100, L501.9940, L500.4050, L500.4100 #### [facility] [address] [place], [address] CO2 [Moles/Vol] 32.0 mmol/L Normal 21.0-32.0 [facility] Comment on above: Performed By: #### L 100.0100, L501.9940, L500.4050, L500.4100 #### [facility] [address] [place], [address] Creatinine [Mass/Vol] 0.88 mg/dL Normal 0.70-1.30 [facility] Comment on above: Result Comment: The validity of the calculated GFR GFRAA in patients over 70 years has not been determined. Clinical correlation is essential. Performed By: #### L 100.0100, L501.9940, L500.4050, L500.4100 #### [facility] [address] [place], [address] EST GFR - AA 117 mL/min Normal >60 [facility] Comment on above: Result Comment: Afri can Bangladeshi GFR Calc Performed By: #### L 100.0100, L501.9940, L500.4050, L500.4100 #### [facility] [address] [place], [address] GAP 3 Low 5-15 [facility] Comment on above: Performed By: #### L 100.0100, L501.9940, L500.4050, L500.4100 #### [facility] [address] [place], [address] GFR/1.73 sq M.predicted among non-blacks MDRD (S/P/Bld) [Vol rate/Area] 97 mL/min/{1.73_m2} Normal >60 [facility] Comment on above: Result Comment: Non- GFR Calc Performed By: #### L 100.0100, L501.9940, L500.4050, L500.4100 #### [facility] [address] [place], [address] Globulin (S) [Mass/Vol] 3.7 g/dL Normal 2.2-4.2 [facility] Comment on above: Performed By: #### L 100.0100, L501.9940, L500.4050, L500.4100 #### [facility] [address] [place], [address] Glucose [Mass/Vol] 185 mg/dL High 74-106 [facility] Comment on above: Result Comment: Fast ing Glucose result greater than or equal to 126 mg/dL suggests DIABETES MELLITUS per A.D.A. criteria. Performed By: #### L 100.0100, L501.9940, L500.4050, L500.4100 #### [facility] [address] [place], [address] Potassium [Moles/Vol] 3.6 mmol/L Normal 3.5-5.1 [facility] Comment on above: Performed By: #### L 100.0100, L501.9940, L500.4050, L500.4100 #### [facility] [address] [place], [address] Sodium [Moles/Vol] 137 mmol/L Normal 136-145 [facility] Comment on above: Performed By: #### L 100.0100, L501.9940, L500.4050, L500.4100 #### [facility] [address] [place], [address] T PROT 7.2 g/dL Normal 6.4-8.2 [facility] Comment on above: Performed By: #### L 100.0100, L501.9940, L500.4050, L500.4100 #### [facility] [address] [place], [address] Urea nitrogen [Mass/Vol] 14 mg/dL Normal 7-18 [facility] Comment on above: Performed By: #### L 100.0100, L501.9940, L500.4050, L500.4100 #### [facility] [address] [place], [address] Lipid Profileon 03-18-2024 Cholesterol [Mass/Vol] 166 mg/dL Normal 200 [facility] Comment on above: Result Comment: <200 mg/dL Desirable 200-240 mg/dL Borderline >240 mg/dL High Risk Performed By: #### L 100.0100, L501.9940, L500.4050, L500.4100 #### [facility] [address] [place], [address] Cholesterol in HDL [Mass/Vol] 42 mg/dL Normal [facility] Comment on above: Result Comment: The drugs N-Acetylcysteine and Metamizole may falsely depress this assay. Reference Range HDL <40 mg/dL Low HDL Cholesterol HDL >or= 60 mg/dL High HDL Cholesterol Performed By: #### L 100.0100, L501.9940, L500.4050, L500.4100 #### [facility] [address] [place], [address] Cholesterol in LDL [Mass/Vol] 99 mg/dL Normal 0-130 [facility] Comment on above: Performed By: #### L 100.0100, L501.9940, L500.4050, L500.4100 #### [facility] [address] [place], [address] Cholesterol in VLDL [Mass/Vol] 25 mg/dL Normal 5-40 [facility] Comment on above: Performed By: #### L 100.0100, L501.9940, L500.4050, L500.4100 #### [facility] [address] [place], [address] Triglyceride [Mass/Vol] 123 mg/dL Normal [facility] Comment on above: Result Comment: The drugs N-Acetylcysteine and Metamizole may falsely depress this assay. Serum Triglycerides Reference Interval Normal <150 mg/dL Borderline high 150 - 199 mg/dL High 200 - 499 mg/dL Very High > or = 500 mg/dL Performed By: #### L 100.0100, L501.9940, L500.4050, L500.4100 #### [facility] [address] [place], [address] PSA,Total- [employer] - PSA, DIAGNOSTIC 0.40 ng/mL Normal 0.0-4.0 [facility] Comment on above: Result Comment: This test was performed using the TPSA assay method for the [employer] chemistry system. Values obtained with different assay methods cannot be used interchangably. When changing PSA assays in the course of monitoring a patient, additional sequential testing should be carried out to confirm baseline values. Performed By: #### L 100.0100, L501.9940, L500.4050, L500.4100 #### [facility] [address] [place], [place], [address] Bedside Glucoseon 12-17-2023 FINGERSTICK GLU 133 mg/dL High 74-106 [facility] Comment on above: Result Comment: MARIA ISABEL RAPHAEL OF PATIENT CARE PER NURSING PROTOCOL Performed By: #### L 501.080 #### [facility] [address] [place], [place], [address] Fluor Guidance for Spine Inj on 12-17-2023 Fluor Guidance for Spine Inj [facility] Imaging Services [address] [place], [place] [address] Fluor Guidance for Spine Inj MR#: [id number] Acct: [id number] Name: PATRICK FOUNTAIN Rep #: [id number] : 1970 M 53 From: Alexei hester MD PCP: TERA Sandhu Status: [facility] Study: Fluor Guidance for Spine Inj Date of Exam: Exam# [id number] Ordering Dr: Miguel Haley MD -[id number] PROCEDURE: Caudal epidural injection. DATE OF EXAMINATION: December 17, 2023. INDICATION: Male, 53 years old. Low back pain. FLUOROSCOPY TIME (if supplied): (9 seconds) minutes/seconds. 13.68 mGy. One image was submitted. RAD/Fluor Guidance for Spine Inj IMPRESSION: Intraoperative imaging provided for caudal epidural block. Electronically Signed: Alexei Gallardo MD at 14:29 EDT , CC: TERA Jordan; Dr. Miguel Haley MD Radiator Specialist: Signed Normal [facility] MR/POSTOP.ANEon 09-16-2024 MR/POSTOP.ANE [facility] Medical Records Department [address] [facility] [place] [address] Anesthesia Postop Eval I 12/17/23 1004 MR#: [id number] Acct: [id number] Name: PATRICK FOUNTAIN Rep #: [id number] : 1970 53 From: Brittni Tamez CRNA PCP: RADHA SandhuC Status:[facility] Y Race: C Location: [place] [address] Anesthesia: Postop Eval I Current Vital Signs Temperature: 98.7 F Pulse Rate: 84 Blood Pressure: 129/85 Respiratory Rate: 16 Pulse Ox: 98 Oxygen Delivery Method: Room Air Assessment Airway patent: Yes Spontaneous unlabored respirations: Yes Mental status: Awake and Calm nausea: No Vomiting: No Anesthesia Complication: No Fluid Hydration Crystalloid volume administer (ml): 200 Total IV fluid infused: 200 Progress Note Anesthesia document: Postop Eval 1 completed: Yes 12/17/23 1006 Date Brittni Tamez PROGRAM HOST Cosigner Signature: Date CC: Signed Normal [facility] MR/[id number] 12-17-2023 [facility] Medical Records Department [address] [facility] [place] [address] Anesthesia Postop Eval II 12/17/23 1120 MR#: [id number] Acct: [id number] Name: PATRICK FOUNTAIN SANDRA Rep #: [id number] : 1970 53 From: Tahir Vidales MD PCP: TERA Sandhu Status:[facility] Y Race: C Location: [facility] Anesthesia Postop Eval I Sum Postop Eval Completion status Anesthesia document: Postop Eval 1 completed: Yes Anesthesia Postop Eval I Summary Anesthesia Postop Eval I Summary: Anesthesia Postop Eval I: Assessment Summary Airway patent Yes 12/17/23 10:06 PROGRAM HOST.SKOBY Spontaneous unlabored Yes 12/17/23 10:06 PROGRAM HOST.SKOBGriselda respirations Mental status Awake,Calm 12/17/23 10:06 PROGRAM HOST.SKOBY nausea No 12/17/23 10:06 PROGRAM HOST.SKOBY Vomiting No 12/17/23 10:06 PROGRAM HOST.SKOBY Anesthesia Postop Eval I: Fluid Summary Crystalloid volume administer 200 12/17/23 10:06 PROGRAM HOST.SKOBY (ml) Colloids volume administered ( ml) Blood Product volume administered (ml) Total IV fluid infused 200 12/17/23 10:06 PROGRAM HOST.LIZZETTEOBGriselda Anesthesia Postop Eval I: Summary Notes Anesthesia Complication No 12/17/23 10:06 PROGRAM HOST.SKOBGriselda Anesthesia Complication Comment: Post-operative progress note Anesthesia: Postop Eval II Evaluation Mental status: Awake Pain Level: 0 nausea: No Vomiting: No 12/17/23 1120 Date Tahir Vidales MD Cosignjennifer Signature: Date CC: Signed Normal [facility] Operative Reporton 4 Operative Report [facility] Medical Records Department [address] [place] [address] Operative Report 12/17/23 1007 MR#: [id number] Acct: [id number] Name: PATRICK FOUNTAIN Rep #: [id number] : 1970 53 From: Miguel Haley MD PCP: TERA Sandhu Status:[facility] Location: [place] [address] Report of Operation Date of Procedure: 12/17/23 Pre-Operative Diagnosis: Lumbosacral radiculopathy, lumbosacral degenerative disc disease, lumbosacral spinal stenosis Post-Operative Diagnosis: Lumbosacral radiculopathy, lumbosacral degenerative disc disease, lumbosacral spinal stenosis Surgery/Procedure Performed:: Diagnostic/therapeu tic caudal epidural steroid injection under fluoroscopic guidance Type of Anesthesia: MAC Estimated Blood Loss (mL): Minimal Description of Procedure: DESCRIPTION OF PROCEDURE: History and physical of today was reviewed. Risks and benefits of the procedure were explained. The patient understood and agreed to proceed. Informed consent was obtained. IV inserted per routine protocol. The patient was taken to the operating room and placed in the prone position with a pillow positioned underneath the abdomen. The lower back and tailbone area was prepped and draped in a sterile fashion using iodine x3. Under fluoroscopy guidance on a lateral view, the caudal space was identified. The skin and subcutaneous tissue was anesthetized with approximately 3 mL of 1% lidocaine using a 25-gauge regular needle. Under direct visualization with fluoroscopy, using a 22-gauge 3-1/2-inch spinal needle, the needle was advanced via the skin through the sacral hiatus. The tip of the needle was passed through the sacrococcygeal ligament and advanced to approximately S4 area. After negative aspiration of blood or CSF, a total of 3 mL of contrast was injected to confirm correct placement of the needle as well as cephalad spread. The spread was followed to approximately L5 area. After confirmation on AP as well as lateral view and repeated negative aspiration, a total of 15 mL of preservative-free 0.125% Marcaine with 80 mg of Depo-Medrol was injected easily. The needle was then removed intact. The patient experienced no sign or symptoms of intrathecal or intravascular injection. The patient experienced no paresthesia. The procedure was completed without any apparent difficulty or any complications. The patient appeared to tolerate it well. ASSESSMENT AND PLAN: This is a 53-year-old male with lumbosacral radiculopathy, lumbosacral degenerative disc disease, lumbosacral spinal stenosis status post caudal epidural steroid injection, patient will continue his current medications, patient will follow in approximately 2 weeks for reevaluation. Complications None 12/17/23 1007 Cosigner Signature (if applicable): CC: TERA Jordan; Dr. Miguel Haley MD Signed Normal [facility] Culture, urineOrdered By: Do ra Jordan on 05-19-2022 Bacteria identified Cx Nom (U) Positive [facility] - Chemistry and C hemistry - challengeon 05-16-2022 Bilirubin Ql (U) Negative [facility] Glucose Ql (U) 500 g/dL [facility] Ketones Ql (U) Negative [facility] pH (U) 6.0 [pH] [facility] Specific gravity (U) [Rel density] 1.020 [facility] Urobilinogen (U) [Mass/Vol] 0.0279385 mg/dL [facility] - Hematology and Cell countson 05-16-2022 Hemoglobin Ql (U) Negative [facility] - Specimen inform ationon 05-16-2022 Clarity (U) Clear [facility] Color (U) YELLOW [facility] - Urinalysison Nitrite Ql (U) Negative [facility] Protein Ql (U) Negative [facility] No Panel Informationon 05-16 Urine Leukocytes Negatve [facility] Urine Non-Hemolyzed Blood [facility] Absolute lymphocyte countOrd ered By: Katya Jordan on 03-30-2022 Lymphocytes Auto (Unsp spec) [#/Vol] 2.61 10*3/uL 0.83-4.51 [facility] Basophil percentageOrdered B y: Katya Jordan on 03-30-2022 Basophils/100 WBC (Bld) 0.3 % 0-1 [facility] Bilirubin [Mass/Vol] 0.40 mg/dL 0.20-1.00 [facility] Comment on above: For patients on eltr ombopag therapy, use of Dimension [place] TBIL is not recommended. Chloride [Moles/Vol] 100 mmol/L 98-107 [facility] Cholesterol [Mass/Vol] 161 mg/dL <200 [facility] Comment on above: <200 mg/dL Desirable 200-240 mg/dL Borderline >240 mg/dL High Risk Eosinophils/100 WBC (Bld) 6.3 % 0-5 [facility] Glucose [Mass/Vol] 128 mg/dL 74-106 [facility] Comment on above: Fasting Glucose resu lt greater than or equal to 126 mg/dL suggests DIABETES MELLITUS per A.D.A. criteria. Neutrophils (Bld) [#/Vol] 5.8 10*3/uL 2.0-7.7 [facility] Neutrophils/100 WBC (Bld) 60.6 % 47-70 [facility] Potassium [Moles/Vol] 4.0 mmol/L 3.5-5.1 [facility] Protein [Mass/Vol] 7.9 g/dL 6.4-8.2 [facility] Sodium [Moles/Vol] 135 mmol/L 136-145 [facility] Triglyceride [Mass/Vol] 198 mg/dL <199 [facility] Comment on above: The drugs N-Acetylcy steine and Metamizole may falsely depress this assay.Serum Triglycerides Reference Interval Normal <150 mg/dL Borderline high 150 - 199 mg/dL High 200 - 499 mg/dL Very High > or = 500 mg/dL WBC (Bld) [#/Vol] 9.6 10*3/uL 4.4-11.0 [facility] Blood erythrocytes count (nu mber/volume)Ordered By: Katya Jordan on 03-30-2022 RBC (Bld) [#/Vol] 6.12 10*6/uL 4.6-6.2 [facility] Blood hemoglobin measurement (mass/volume)Ordered By: Katya Jordan on 03-30-2022 Hemoglobin (Bld) [Mass/Vol] 18.3 g/dL 13.0-16.5 [facility] Comment on above: AND IT WENT TO VOICE MAIL. LEFT MESSAGE ON HER VOICEMAIL TO RETURN CALL FOR CRITICAL ON THIS PATIENT.[facility] 03-30-22 AT 2236PMPrevious reported result: 18.3 g/dLEdited by: HANSEL on 03/30/22:2235 Blood lymphocytes/100 leukoc ytesOrdered By: Katya Jordan on 03-30-2022 Lymphocytes/100 WBC (Bld) 27.2 % 19-41 [facility] Blood monocytes/100 leukocyt esOrdered By: Katya Jordan on 03-30-2022 Monocytes/100 WBC (Bld) 5.2 % 0-10 [facility] Blood platelet adequacy dete ction by light microscopyOrdered By: Katya Jordan on 03-30-2022 Platelets LM Ql (Bld) ADEQUATE ADEQ [facility] Blood platelet mean volumeOr dered By: Katya Jordan on 03-30-2022 Platelet mean volume (Bld) [Entitic vol] 10.7 fL 6.2-12.0 [facility] Determination of erythrocyte mean corpuscular volume (MCV)Ordered By: Katya Jordan on 03-30-2022 MCV (RBC) [Entitic vol] 86.3 fL 80-94 [facility] Hematocrit Auto (Bld) [Volum e fraction]Ordered By: Katya Jordan on 03-30-2022 Hematocrit (Bld) [Volume fraction] 52.8 % 40-54 [facility] - Chemistry and C hemistry - challengeOrdered By: Katya Jordan on 03-30-2022 ALP [Catalytic activity/Vol] 79 U/L 45-117 [facility] ALT [Catalytic activity/Vol] 41 U/L 16-61 [facility] CO2 [Moles/Vol] 29.0 mmol/L 21.0-32.0 [facility] Globulin (S) [Mass/Vol] 4.3 g/dL 2.2-4.2 [facility] Urea nitrogen/Creatinine [Mass ratio] 13.7 mg/mg 10-20 [facility] - Hematology and Cell countsOrdered By: Katya Jordan on 03-30-2022 Anisocytosis Ql (Bld) RARE [facility] Erythrocyte distribution width (RBC) [Entitic vol] 40.9 fL 35.1-43.9 [facility] Erythrocyte distribution width (RBC) [Ratio] 13.1 % 11.6-14.6 [facility] Immature granulocytes/100 WBC (Bld) 0.400 % 0.0-0.9 [facility] Comment on above: IG% - Immature Granu locytes (promyelocytes, myelocytes and metamyelocytes) > 1% indicates that a LEFT SHIFT is Present. MCH (RBC) [Entitic mass] 29.9 pg 27.0-32.0 [facility] Nucleated RBC/100 WBC (Bld) [Ratio] 0 % 0-5 [facility] MCHC Auto (RBC) [Mass/Vol]Or dered By: Katya Jordan on 03-30-2022 MCHC (RBC) [Mass/Vol] 34.7 g/dL 32-36 [facility] No Panel InformationOrdered By: Katya Jordan on 03-30-2022 Estimated GFR (MDRD) Amer 100 mL/min >60 [facility] Comment on above: GFR Calc Estimated GFR (MDRD) Non-Af Amer 82 mL/min >60 [facility] Comment on above: Non- GFR Calc Prostate Specific Antigen Screen 0.64 ng/mL 0.00-4.00 [facility] Comment on above: This test was perfor med using the TPSA assay method for the[employer] chemistry system. Values obtained with differentassay methods cannot be used interchangably.When changing PSA assays in the course of monitoring apatient, additional sequential testing should be carriedout to confirm baseline values. Platelets bldOrdered By: Timothy Jordan on 03-30-2022 Platelets (Bld) [#/Vol] 305 10*3/uL 150-450 [facility] RBC morphologyOrdered By: Do ra Jordan on 03-30-2022 RBC morphology finding Nom (Bld) N CHROM NORMAL NORM C&C [facility] Review by pathologistOrdered By: Katya Jordan on 03-30-2022 Pathologist review Tony (Unsp spec) [Interp] Reviewed [facility] Comment on above: Previous reported re sult: Roshni aguiar Edited by: RGOOSVALDO on 03/31/22:1137Polycythemia Clinical correlation necessary.Liam Whiting M.D. 03/31/22 AMENDED REPORT 03/31/22 1137 PATH REV previously reported as: Roshni aguiar Serum or plasma albumin ian urement (mass/volume)Ordered By: Katya Jordan on 03-30-2022 Albumin [Mass/Vol] 3.6 g/dL 3.2-5.0 [facility] Serum or plasma albumin/glob ulin mass ratioOrdered By: Katay Jordan on 03-30-2022 Albumin/Globulin [Mass ratio] 0.8 {ratio} 0.9-2.4 [facility] Serum or plasma calcium ian urement (mass/volume)Ordered By: Katya Jordan on 03-30-2022 Calcium [Mass/Vol] 9.1 mg/dL 8.5-10.1 [facility] Serum or plasma cholesterol in HDL measurement (mass/volume)Ordered By: Katya Jordan on 03-30-2022 Cholesterol in HDL [Mass/Vol] 32 mg/dL >40 [facility] Comment on above: The drugs N-Acetylcy steine and Metamizole may falsely depress this assay. Reference Range HDL <40 mg/dL Low HDL Cholesterol HDL >or= 60 mg/dL High HDL Cholesterol Serum or plasma cholesterol in VLDL measurement (mass/volume)Ordered By: Katya Jordan on 03-30-2022 Cholesterol in VLDL [Mass/Vol] 40 mg/dL 5-40 [facility] Serum or plasma creatinine m easurement (mass/volume)Ordered By: Katya Jordan on 03-30-2022 Creatinine [Mass/Vol] 1.02 mg/dL 0.70-1.30 [facility] Comment on above: The validity of the calculated GFR & GFRAA in patients over 70 years has not been determined. Clinical correlation is essential. Serum or plasma low density lipoprotein (LDL) cholesterol measurement (mass/volume)Ordered By: Katya Jordan on 03-30-2022 Cholesterol in LDL [Mass/Vol] 89 mg/dL 0-130 [facility] Serum or plasma urea nitroge n measurement (mass/volume)Ordered By: Katya Jordan on 03-30-2022 Urea nitrogen [Mass/Vol] 14 mg/dL 7-18 [facility] Thin prep Papanicolaou smear with manual screeningOrdered By: Katya Jordan on 03-30-2022 Thin prep Papanicolaou smear with manual screening 18 U/L 15-37 [facility] Thin prep Papanicolaou smear with manual screening 6 5-15 [facility] Whole blood hemoglobin A1c/t otal hemoglobin ratio (mass fraction)Ordered By: Katya Jordan on 03-30-2022 HbA1c (Bld) [Mass fraction] 6.3 % 3.8-5.6 [facility] Comment on above: Normal < 5.7 % Predi abetic 5.7 - 6.4 % Diabetic >or= 6.5 % Please note range changes. PROCEDUREon 04-30-2018 Protein mass conc HNO ID: [id number] Author: Nahun Whaley Service: Pulmonary Disease Author Type: Physician Type: Procedures Filed: 05/02/2018 10:19 AM Note Text: [facility] - Sleep Disorder Report - [place] PATIENT NAME: PATRICK FOUNTAIN CSN: [id number] DATE OF : 1970 SEX/AGE: M/47 PATIENT TYPE: O HOSP [facility]: LOCATION: 04/25/2018 REFERRING PHYSICIAN: KATYA JORDAN The patient is a 47-year-old man with previously diagnosed obstructive sleep apnea, acid reflux, and restless legs syndrome, who presents for a split night study. BODY OF THE REPORT: A split night study was performed in the usual fashion. The total recording time was 412.1 minute with a total sleep time of 269.1 minutes resulting in a reduced sleep efficiency of 65.3%. Latency to sleep onset was normal at 15.5 minutes with a profoundly prolonged REM latency of 299.5 minutes. All stages of sleep were identified during the study including slow wave sleep and REM sleep. The total apnea-hypopnea index for the entire study was 7.4 with a total of 33 events which huong to 10.8 during sleep in the supine position. The patient was begun on bilevel positive airway pressure with IPAP ranging from 12 to 16 centimeters of water and EPAP ranging from 6 to 10 centimeters of water. The most optimal pressure setting appears to be IPAP at 16 centimeters of water and EPAP at 10 centimeters of water at which time REM sleep was encountered in the supine position and the apnea-hypopnea index was 2.4. At this pressure setting, the average SaO2 was 92%, though there was hypoxia with an SaO2 low of 84%. There was a total of nearly 4 minutes at this pressure setting where the SaO2 was less than 88%. The periodic limb movement index was markedly elevated at 71.3, which fell to 4.01 index with arousals. IMPRESSIONS: 1. Obstructive sleep apnea with associated significant hypoxia. 2. Markedly elevated periodic limb movements, but rarely associated with arousals. 3. Profoundly prolonged REM latency and reduced quantity of REM sleep, consistent with sleep destruction due to significant obstructive sleep apnea. RECOMMENDATIONS: 1. Suggest bi-level positive airway pressure at 16 centimeters of water IPAP and 10 centimeters of water EPAP with 2 liters/minute supplemental oxygen bled-in via a medium Mirage Quattro mask. 2. Weight loss to ideal body weight is strongly encouraged as patient is 72 inches in height and weighs 422 pounds. 3. Avoid alcohol sedatives, and hypnotics as these may exacerbate obstructive sleep apnea. 4. The patient should avoid nicotine and caffeine, particularly within 4 hours of bedtime, as these may significantly disrupt sleep. 5. The patient should avoid operating heavy machinery if driving when feeling sleepy. 6. The patient does not require treatment for periodic limb movement disorder as these are rarely associated with arousals, but may still benefit from treating his restless legs syndrome if he finds it disturbing when awake. Nahun Whaley MD Pulmonary HK:modl /[id number] [facility] CNOVon 04-25-2018 CNOV Office Visit (LDNESL) ---- PATRICK FOUNTAIN ([id number]) 1970 M Date Time Provider Department 04/25/18 9:00 PM [facility] During your visit today, we recorded the following information about you: Referring Provider: KATYA JORDAN [[id number]] Allergies As of Date: 04/25/2018 Noted Allergy Reaction PENICILLINS 07/15/2010 4 - Hives 7 - Swelling Date Reviewed: 06/10/2014 Reviewed by: Teri Stover Ct - Fully Assessed Reason for Visit: Sleep Apnea [1361] Visit Diagnosis:Sleep apnea, obstructive [G47.33] Prescriptions as of 04/25/2018 Sig: AMLODIPINE 10 MG-BENAZEPRIL 2* once daily. PANTOPRAZOLE 20 MG TABLET,DEL* Take 20 mg by mouth once brandan* Problem List As Of Date 04/25/2018 Noted Resolved Shoulder pain, right [M25.511] INVALID FOR* Rotator cuff disorder [M67.919] INVALID FOR* Morbid obesity with BMI of 50.0-59.9, adult [E6*INVALID FOR* Pain in joint, pelvic region and thigh [M25.559]INVALID FOR* Gait abnormality [R26.9] INVALID FOR* Arthritis of knee, degenerative [M17.10] INVALID FOR* Medial meniscus tear [S83.249A] INVALID FOR* Encounter Status:Closed by GERRI MATHUR on 04/26/18 [facility] Vital Signs Date Time Vital Sign Value Performing Clinician Facility 08-18-2024 09:06-0400 Body temperature 99.3 [degF] Katya Jordan PROFESSOR OF THEOLOGY-C Work Phone: [facility] 08-18-2024 09:06-0400 Diastolic blood pressure 95 mm[Hg] Katya Jordan PROFESSOR OF THEOLOGY-C Work Phone: [facility] 08-18-2024 09:06-0400 Heart rate 77 /min Katya Jordan PROFESSOR OF THEOLOGY-C Work Phone: [facility] 08-18-2024 09:06-0400 Respiratory rate 18 /min Katya Jordan PROFESSOR OF THEOLOGY-C Work Phone: [facility] 08-18-2024 09:06-0400 SaO2% (BldA) [Mass fraction] 99 % Katya Jordan PROFESSOR OF THEOLOGY-C Work Phone: [facility] 08-18-2024 09:06-0400 Systolic blood pressure 149 mm[Hg] Katya Jordan PROFESSOR OF THEOLOGY-C Work Phone: [facility] 08-18-2024 08:02-0400 Body height 182.88 cm Katya Jordan PROFESSOR OF THEOLOGY-C Work Phone: [facility] 08-18-2024 08:02-0400 Body mass index (BMI) [Ratio] 37.6 kg/m2 Katya Jordan PROFESSOR OF THEOLOGY-C Work Phone: [facility] 08-18-2024 08:02-0400 Body weight 126 kg Katya Jordan PROFESSOR OF THEOLOGY-C Work Phone: [facility] 08-11-2024 15:59-0400 Body mass index (BMI) [Ratio] 53.1 kg/m2 Katya Jordan PROFESSOR OF THEOLOGY-C Work Phone: [facility] 08-11-2024 15:59-0400 Body temperature 97.5 [degF] Katya Jordan PROFESSOR OF THEOLOGY-C Work Phone: [facility] 08-11-2024 15:59-0400 Body weight 177.8 kg Katya Jordan PROFESSOR OF THEOLOGY-C Work Phone: [facility] 08-11-2024 15:59-0400 Diastolic blood pressure 70 mm[Hg] Katya Jordan PROFESSOR OF THEOLOGY-C Work Phone: [facility] 08-11-2024 15:59-0400 Heart rate 84 /min Katya Jordan PROFESSOR OF THEOLOGY-C Work Phone: [facility] 08-11-2024 15:59-0400 Respiratory rate 18 /min Katya Juan Diego PROFESSOR OF THEOLOGY-C Work Phone: [facility] 08-11-2024 15:59-0400 SaO2% (BldA) [Mass fraction] 96 % Katyaisi FreemanJordan PROFESSOR OF THEOLOGY-C Work Phone: [facility] 08-11-2024 15:59-0400 Systolic blood pressure 107 mm[Hg] Katya Jordan PROFESSOR OF THEOLOGY-C Work Phone: [facility] 03-19-2024 11:40-0500 Body temperature 97.7 [degF] Shanti Jacob B[employer]ER [employer] Work Phone: [facility] 03-19-2024 11:40-0500 Diastolic blood pressure 81 mm[Hg] Shanti Jacob [employer] Work Phone: [facility] 03-19-2024 11:40-0500 Heart rate 73 /min Shanti Jacob [employer] Work Phone: [facility] 03-19-2024 11:40-0500 Respiratory rate 18 /min Shanti Jacob [employer] Work Phone: [facility] 03-19-2024 11:40-0500 SaO2% (BldA) [Mass fraction] 97 % Shanti Jacob [employer] Work Phone: [facility] 03-19-2024 11:40-0500 Systolic blood pressure 118 mm[Hg] Shanti Martinezliff [employer] Work Phone: [facility] 06-02-2022 08:23-0500 Body height 182.88 cm PROFESSOR OF THEOLOGY-C Katya Jordan PROFESSOR OF THEOLOGY Work Phone: [facility] 06-02-2022 08:23-0500 Body mass index (BMI) [Ratio] 52.2 kg/m2 PROFESSOR OF THEOLOGY-C Katya Jordan PROFESSOR OF THEOLOGY Work Phone: [facility] 06-02-2022 08:23-0500 Body weight 174.63 kg PROFESSOR OF THEOLOGY-C Katya Jordan PROFESSOR OF THEOLOGY Work Phone: [facility] 05-16-2022 17:39-0500 Body height 182.88 cm [facility] 05-16-2022 17:39-0500 Body mass index (BMI) [Ratio] 52.4 kg/m2 [facility] 05-16-2022 17:39-0500 Body temperature 97.3 [degF] [facility] 05-16-2022 17:39-0500 Body weight 175.54 kg [facility] 05-16-2022 17:39-0500 Diastolic blood pressure 60 mm[Hg] [facility] 05-16-2022 17:39-0500 Heart rate 65 /min [facility] 05-16-2022 17:39-0500 Respiratory rate 18 /min [facility] 05-16-2022 17:39-0500 SaO2% (BldA) [Mass fraction] 97 % [facility] 05-16-2022 17:39-0500 Systolic blood pressure 120 mm[Hg] [facility] 03-30-2022 15:54-0500 Body height 182.88 cm [facility] Work Phone: 03-30-2022 15:54-0500 Body mass index (BMI) [Ratio] 49.6 kg/m2 [facility] 03-30-2022 15:54-0500 Body temperature 97.5 [degF] [facility] 03-30-2022 15:54-0500 Body weight 166.01 kg [facility] 03-30-2022 15:54-0500 Diastolic blood pressure 70 mm[Hg] [facility] 03-30-2022 15:54-0500 Heart rate 103 /min [facility] [facility] 15:54-0500 Respiratory rate 18 /min [facility] 03-30-2022 15:54-0500 SaO2% (BldA) [Mass fraction] 98 % [facility] 03-30-2022 15:54-0500 Systolic blood pressure 118 mm[Hg] [facility] Encounters Encounter Date Encounter Type Care Provider Facility Start: 12-15-2024 ambulatory Miguel Haley [facility] y:[facility] Start: 08-18-2024 End: 08-18-2024 Admission to same day surgery center Dr. Miguel Haley MD -[facility] Start: 08-18-2024 End: 08-18-2024 ambulatory Katya Jordan PROFESSOR OF THEOLOGY-C Work Phone: [facility] Work Phone: Start: 04-07-2024 End: 04-07-2024 ambulatory Miguel Haley Facility:[facility] Start: 03-19-2024 End: 03-19-2024 Office outpatient visit 15 minutes Shanti Calixto [facility] Work Phone: [facility] Comment on above: Contusion of dorsum of left hand (Primary Dx); Examination for medicolegal reason Start: 03-19-2024 End: 03-19-2024 ambulatory SHANTI CALIXTO [facility] Start: 03-18-2024 End: 03-18-2024 ambulatory Katya Jordan Facility:[facility] Start: 12-17-2023 End: 12-17-2023 ambulatory Miguel Haley Facility:[facility] Start: 06-17-2022 End: 06-17-2022 ambulatory PROFESSOR OF THEOLOGY-C Katya Jordan PROFESSOR OF THEOLOGY Work Phone: [facility] Work Phone: Start: 06-17-2022 End: 06-17-2022 Patient encounter procedure PROFESSOR OF THEOLOGY-Bryan Jordan PROFESSOR OF THEOLOGY Work Phone: [facility]-MRI - WC Start: 06-02-2022 End: 06-02-2022 Patient encounter procedure PROFESSOR OF THEOLOGY-Bryan Jordan PROFESSOR OF THEOLOGY Work Phone: [facility] Start: 05-17-2022 End: 05-17-2022 ambulatory [facility] Work Phone: Start: 05-17-2022 End: 05-17-2022 Patient encounter procedure [facility]-Radiology, [place] Start: 05-16-2022 End: 05-16-2022 ambulatory [facility] Work Phone: Start: 05-16-2022 End: 05-16-2022 Patient encounter procedure [facility]-Laboratory, Specimen Start: 03-30-2022 End: 03-30-2022 ambulatory [facility] Work Phone: Start: 03-30-2022 End: 03-30-2022 Patient encounter procedure [facility]-Laboratory, Specimen Start: 01-06-2020 Patient encounter status [facility] Start: 04-25-2018 End: 04-26-2018 Patient encounter procedure KATYA JORDAN [facility] Procedures Date Procedure Procedure Detail Performing Clinician Start: 08-18-2024 Local anesthetic lum bar epidural block Katya Jordan PROFESSOR OF THEOLOGYWillowC Work Phone: Start: 06-17-2022 MRI of lumbar spine PROFESSOR OF THEOLOGY- Bryan Jordan PROFESSOR OF THEOLOGY Work Phone: Start: 05-17-2022 X-ray of lumbosacral spine Urine culture Plan of Treatment Date Care Activity Detail Author Start: 08-18-2024 Complete x-ray series of lumbar spine with bending views L/S Spine w Bend Min 6 Vw [facility] Start: 08-18-2024 Injection of facet joint [facility] Start: 08-18-2024 Injection of spinal epidural space [facility] Start: 08-18-2024 Patient discharge [facility] Start: 12-02-2023 COVID-19 Vaccine ( season) COVID-19 Vaccine ( season) [facility] Start: 12-02-2023 Influenza vaccination Influenza Vaccine (#1) [facility] Start: 2022 Administration of herpes zoster vaccine Zoster Vaccines (1 of 2) [facility] Start: 2022 Screening for malignant neoplasm of colon Flexible sigmoidoscopy [facility] Start: 11-12-2016 Tetanus vaccination Tetanus: Every 10yrs [facility] Start: 10-14-2016 History and physical examination, annual for health maintenance Wellness Visit [facility] Start: 1990 Hepatitis C screening Hepatitis C Screening [facility] Start: 1987 HIV screening HIV Screening [facility] Start: 1984 Depression screening using PHQ-9 (Patient Health Questionnaire 9) score Depression Screening/Follow-Up (PHQ-2/9) [facility] Start: 1972 Prostate specific antigen measurement PSA Level [facility] Start: 1972 Screening for malignant neoplasm of colon [facility] Patient referral [facility] Work Phone: Payers Date Payer Category Payer Unknown [id number] 2024 Worker's Compensation [id number] 2023 Self-pay [id number] 2023 Unknown [id number] 1970 Unknown [id number] 1972 Unknown [id number] Unknown [employer] [place] [id number] Unknown [facility] PACKAGE PLAN . [id number] Unknown [id number] Unknown [id number] Unknown [id number] Unknown [id number] Unknown [id number] Worker's Compensation [facility] COMPENSATION [id number] Worker's Compensation [id number] Social History Date Type Detail Facility Tobacco smoking stat us MOIS Unknown if ever smoked [facility] Work Phone: Start: 1970 Sex Assigned At Male [facility] Start: 03-19-2024 End: 08-15-2024 Tobacco smoking status NHIS Never smoked tobacco [facility] Start: 03-19-2024 Tobacco use and exposure Smokeless tobacco non-user [facility] Start: 03-19-2024 History of Social function [facility] Start: 03-19-2024 Tobacco use panel [facility] Start: 1970 Sex assigned at Not on file [facility] Start: 03-19-2024 Gender identity Identifies as male gender (finding) [facility] Start: 03-19-2024 Sexual orientation Heterosexual (finding) [facility] Medical Equipment Procedure Code Equipment Code Equipment Origin al Text Equipment Identifier Dates Blood Sugar Diagnostic (Accu-Chek Guide Test Strips) strip Start: 07-31-2022 Lancets (Accu-Ch ek Softclix Lancets) misc Start: 07-31-2022 Goals Date Patient Goal Desired Activity /State Mental Status Date Assessment Result Facility 08-18-2024 Cognitive function Voice/Name [facility] Work Phone: Clinical Notes 03-19-2024 to 08-18-2024 Note Date & Type Note Facility 08-18-2024 Consult note [facility] 08-18-2024 Consult note [facility] 08-18-2024 Procedure note [facility] 08-18-2024 Consult note [facility] 08-11-2024 Evaluation note Diagnosis Onset Date Resolution Asthmatic bronchitis acute August 11, 2024 3:49pm Bilateral acute otitis media acute August 11, 2024 3 :49pm [facility] Work Phone: 1(718) 562-443912-18-2024 Instructions* Patient Instructions* Shanti Calixto CNP - 03/19/2024 12:12 PM EST [facility] within the next 5-7 days. Follow up in the emergency department if condition worsens. Take Tylenol as directed on product packaging. * Attachments The following attachments cannot be sent through Care Everywhere. * Contusion: Hand (Mexican) documented in this [id number] History of Present illness Narrative* Edie Pena TECHNOLOGIST - 03/19/2024 11:46 AM EST Collection Date: 03/19/24 Collection Time: 11:34AM Documentation sent to [facility] Breath Alcohol Test (BAT) [facility] Drug Screen * Shanti Calixto CNP - 03/19/2024 11:39 AM EST Images from the original note were not included. Patient Name: [facility] Location: [address] [facility] [address] Date Of : Date Of Visit: 1970 03/19/2024 MRN# Provider: [id number] Shanti Calixto CNP Chief Complaint Patient presents with Hand Pain Lt hand pain after getting hand smashed in between steel. Assessment & Plan No diagnosis found. No follow-ups on file. Medical Decision Making Three-view x-ray of the left hand is negative for acute osseous abnormality, interpreted by this provider. Patient advised to follow-up with work health within the next week. Advised to use Tylenol as directed on product packaging to treat discomfort. Advised to follow-up in the emergency department if condition worsens. I reviewed pertinent medical records available in [employer]. This note was dictated using 3scale voice recognition software which is inherently subject to syntax and sound-alike substitution errors which may escape proofreading. In such instances, original meaning should be extrapolated by contextual derivation. Additional Clinical Comments Discussed over the counter medications for symptomatic management and potential side effects of medications. Educated patient and/or guardian about signs and symptoms that would warrant immediate evaluation in the emergency room. Recommended that they should return to urgent care, make an appointment with their PCP, or go to the emergency room if symptoms persist or get acutely worse. Subjective 53 y.o. male presents with Hand Pain (Lt hand pain after getting hand smashed in between steel. ) HPI Date of injury: 03/19/2024 First report of injury: 03/19/2024 Employer: [employer] Pkjoe-aikd-tphiwyum male patient presents to the urgent care with left hand pain since this morning. Patient reports that he was loading a stack of guardrails onto a truck when his hand got caught. He reports diffuse tenderness over the dorsum and palmar aspect of the left hand between the third and first fingers. He denies numbness, tingling, weakness of the hand. Reports full range of motion. Review Of Systems Review of Systems Review of systems negative except as noted in HPI Medical History History reviewed. No pertinent past medical history. No past surgical history on file. There is no problem list on file for this patient. Social History Family History No family history on file. Objective Physical Exam There were no vitals taken for this visit. Vision/Hearing Exam:No results found. Physical Exam Constitutional: no apparent distress, nontoxic appearance, A+O x4 Integumentary: warm, dry, no ecchymosis Cardiovascular: Strong radial pulses with intact distal perfusion Musculoskeletal: Left hand/wrist: Point tender over the distal third metacarpal. Diffuse tendernessover the dorsum of the left hand between the third and first fingers. Strong grasp and finger abduction. Opposition of the thumb intact. No scaphoid point tenderness. No point tenderness of the distal radius or ulna, full range of motion of the wrist Neurologic: 5/5 strength and sensation of upper extremities. Procedure Notes Procedures Results No results found for this or any previous visit (from the past week). No orders to display Orders Placed This Visit No orders of the defined types were placed in this encounter. Medication List At End Of Visit Current Outpatient Medications Medication Sig Dispense Refill finasteride (PROSCAR) 5 mg tablet Take 1 (one) tablet (5 mg total) by mouth daily . hydroCHLOROthiazide (HYDRODIURIL) 25 MG tablet Take 1 (one) tablet (25 mg total) by mouth daily . lisinopriL (PRINIVIL,ZESTRIL) 40 MG tablet Take 1 (one) tablet (40 mg total) by mouth daily . metoprolol succinate (TOPROL-XL) 200 MG 24 hr tablet Take 1 (one) tablet (200 mg total) by mouth daily . pantoprazole (PROTONIX) 40 MG tablet Take 1 (one) tablet (40 mg total) by mouth daily . No current facility-administered medications for this visit. There are no Patient Instructions on file for this visit. documented in this [id number] NotePatient Name: [facility] Location: [address] [place] [address] Date Of : Date Of Visit: 1970 03/19/2024 MRN# Provider: [id number] Shanti Calixto CNP Chief Complaint Patient presents with Hand Pain Lt hand pain after getting hand smashed in between steel. Assessment & Plan No diagnosis found. No follow-ups on file. Medical Decision Making Three-view x-ray of the left hand is negative for acute osseous abnormality, interpreted by this provider. Patient advised to follow-up with work health within the next week. Advised to use Tylenol as directed on product packaging to treat discomfort. Advised to follow-up in the emergency department if condition worsens. I reviewed pertinent medical records available in [facility]. This note was dictated using 3scale voice recognition software which is inherently subject to syntax and sound-alike substitution errors which may escape proofreading. In such instances, original meaning should be extrapolated by contextual derivation. Additional Clinical Comments Discussed over the counter medications for symptomatic management and potential side effects of medications. Educated patient and/or guardian about signs and symptoms that would warrant immediate evaluation in the emergency room. Recommended that they should return to urgent care, make an appointment with their PCP, or go to the emergency room if symptoms persist or get acutely worse. Subjective 53 y.o. male presents with Hand Pain (Lt hand pain after getting hand smashed in between steel. ) HPI Date of injury: 03/19/2024 First report of injury: 03/19/2024 Employer: [employer] Pgeri[employer]ylit-cdqtjqmb male patient presents to the urgent care with left hand pain since this morning. Patient reports that he was loading a stack of guardrails onto a truck when his hand got caught. He reports diffuse tenderness over the dorsum and palmar aspect of the left hand between the third and first fingers. He denies numbness, tingling, weakness of the hand. Reports full range of motion. Review Of Systems Review of Systems Review of systems negative except as noted in HPI Medical History History reviewed. No pertinent past medical history. No past surgical history on file. There is no problem list on file for this patient. Social History Family History No family history on file. Objective Physical Exam There were no vitals taken for this visit. Vision/Hearing Exam:No results found. Physical Exam Constitutional: no apparent distress, nontoxic appearance, A+O x4 Integumentary: warm, dry, no ecchymosis Cardiovascular: Strong radial pulses with intact distal perfusion Musculoskeletal: Left hand/wrist: Point tender over the distal third metacarpal. Diffuse tenderness over the dorsum of the left hand between the third and first fingers. Strong grasp and finger abduction. Opposition of the thumb intact. No scaphoid point tenderness. No point tenderness of the distal radius or ulna, full range of motion of the wrist Neurologic: 5/5 strength and sensation of upper extremities. Procedure Notes Procedures Results No results found for this or any previous visit (from the past week). No orders to display Orders Placed This Visit No orders of the defined types were placed in this encounter. Medication List At End Of Visit Current Outpatient Medications Medication Sig Dispense Refill finasteride (PROSCAR) 5 mg tablet Take 1 (one) tablet (5 mg total) by mouth daily . hydroCHLOROthiazide (HYDRODIURIL) 25 MG tablet Take 1 (one) tablet (25 mg total) by mouth daily . lisinopriL (PRINIVIL,ZESTRIL) 40 MG tablet Take 1 (one) tablet (40 mg total) by mouth daily . metoprolol succinate (TOPROL-XL) 200 MG 24 hr tablet Take 1 (one) tablet (200 mg total) by mouth daily . pantoprazole (PROTONIX) 40 MG tablet Take 1 (one) tablet (40 mg total) by mouth daily . No current facility-administered medications for this visit. There are no Patient Instructions on file for this visit. AUTHENTICATED BY SHANTI CALIXTO ON 03/19/2024 13:38:20[facility] Care[facility] note Author Tahir Vidales [facility] Note Date/Time August 18, 2024 9:21a m [facility] Medical Records Department [address] [place] [address] Pre-Anesthesia Evaluation 08/18/24 0739 MR#: [id number] Acct: [id number] Name: PATRICK FUONTAIN Rep #:[id number] : 1970 54 From: Tahir Vidales MD PCP: TERA Sandhu Status:REG [facility] Y Race: C Location: [facility] ASA Classification* ASA Classification ASA Classification: 3 Assessment & Plan Anesthesia* Anesthesia Assessment Anesthesia Assessment: Discussed sedation and/or anesthesia options, risks, benefits, and alternatives with patient/parents/legal guardian/POA. Questions invited. The patient/parents/legal guardian/POA seems to understand and agrees to proceedwith anesthesia plan. Reviewed the physical assessment, medical history, allergy history and patient home medications list prior to surgery/procedure/anesthetic and documented any changes. Performed airway and anesthesia risk assessments. Anesthesia Type Anesthesia Type: MAC Anesthesia Focused Assessment* Airway Assessment Mouth opens: >3 cm Mallampati Score: II Focused Labs Anesthesia Preop lab: CBC WBC 9.0 K/mm3 (4.4-11.0) 03/18/24 19:03 03/18/24 RBC 5.33 M/mm3 (4.6-6.2) 03/18/24 19:03 03/18/24 Hgb 15.7 g/dL (13.0-16.5) 03/18/24 19:03 03/18/24 Hct 47.3 % (40-54) 03/18/24 19:03 03/18/24 Plt Count 281 K/mm3 (150-450) 03/18/24 19:03 03/18/24 CHEMISTRY Potassium 3.6 mmol/L (3.5-5.1) 03/18/24 19:03 03/18/24 Sodium 137 mmol/L (136-145) 03/18/24 19:03 03/18/24 Magnesium 2.2 mg/dL (1.6-2.6) 08/31/23 22:10 08/31/23 BUN 14 mg/dL (7-18) 03/18/24 19:03 03/18/24 Creatinine 0.88 mg/dL (0.70-1.30) 03/18/24 19:03 03/18/24 Glucose 185 mg/dL (74-106) H 03/18/24 19:03 03/18/24 POC Glucose 236 mg/dL (74-106) H 04/07/24 07:56 04/07/24 COAG Pre-Assessment Diagnosis/Proposed Procedure Planned Operative Procedure(s): BILAT LUMBAR MEDIAL BRANCH AT L4,5,S1 Anesthesia History Anesthesia History - picture frame maker: Anesthesia History - picture frame maker Hx Hospitalization No 08/15/24 11:22 Any Problems With Anesthesia No 08/15/24 11:22 Cholinesterase deficiency No 08/15/24 11:22 You/Your Family Experience No 08/15/24 11:22 fever (hyperthermia) with Relationship Recent Exposure to Contagious No 04/07/24 07:59 Disease Does patient have nerve No 08/15/24 11:22 stimulator Patient instructed to have device shut off --Does patient have Pacemaker or ICD? When Was Last Pacemaker Check QUESTION #4 FULL TEXT: You/Your Family Experience fever (hyperthermia) with Anesthesia Last Oral Intake Last Oral intake: Last Oral Intake NPO since Meds taken in AM with sips of water? Meds patient instructed to take am of surgery PONV PONV - picture frame maker: PONV - picture frame maker Female No 08/15/24 11:22 HX of Motion Sickness No 08/15/24 11:22 HX of N/V After Surgery No 08/15/24 11:22 Non-Smoker Yes 08/15/24 11:22 Duration of Surgery greater No 08/15/24 11:22 than 60 minutes Number of Risk Factors 1 08/15/24 11:22 PONV Score Low Risk 08/15/24 11:22 Height & Weight Height & Weight: Anesthesia: Height & Weight Height 6 ft 08/11/24 15:59 Respiratory Assessment Respiratory Assessment - picture frame maker: Respiratory Tract Infection Hx - picture frame maker Hx Respiratory Tract Infection No 08/15/24 11:22 STOP Sleep Apnea STOP Sleep Apnea - picture frame maker: STOP Sleep Apnea - picture frame maker Hx Hypertension Yes: CONTROLLED WITH MEDS 08/15/24 11:22 Hx Sleep Apnea No 08/15/24 11:22 CPAP BIPAP Do you snore loudly (louder No 08/15/24 11:22 than talking or can be heard Do you often feel tired/ No 08/15/24 11:22 fatigued/ sleepy during daytime? Has anyone observed you stop No 08/15/24 11:22 breathing during sleep? STOP Results Negative 08/15/24 11:22 QUESTION #5 FULL TEXT : Do you snore loudly (louder than talking or can be heard through closed doors)? Tobacco Use History Tobacco Use History - picture frame maker: Tobacco Use History - picture frame maker Tobacco Use Smoking Status Never smoker 08/15/24 11:22 Hx Tobacco Use No 08/15/24 11:22 Years Smoking Packs Smoked per Day Smoking Cessation Date was within the last 15 years Hx Smoking Cessation Date Hx Smoking Cessation Counseling Hematologic Medial History Hematologic Hx - picture frame maker: Hematologic Medical Hx - promotional representative Hx of Blood Transfusion No 08/15/24 11:22 Hx of Transfusion in last 3 No 08/15/24 11:22 Months Date of Last Transfusion (if within last 3 months) Ever experience any problems No 08/15/24 11:22 with transfusion(s)? Specify any problems Hx of Preganancy in last 3 N/A 08/15/24 11:22 Months Nurse Filling Out Transfusion DSCHRIBER 08/15/24 11:22 & Questions: Date: 08/15/24 08/15/24 11:22 Time: 11:08/15/24 11:22 Patient unable to answer at this time (ie. confused, unrespo /Reproduction History /Reproductive History - picture frame maker: /Reproductive Hx- picture frame maker Hx Now Gestational Age (in weeks): EDC: Hx Hx Para Hx Section SAB No 08/15/24 11:22 [facility] Medical History Wears glasses Pain Diabetes Arthritis History of echocardiogram Back pain Dietary restriction Gastric reflux Non-smoker Cardiology follow-up encounter Hypertension History of stress test BPH (benign prostatic hyperplasia) Asthmatic bronchitis Home Medications ?Medication ?Instructions ?Recorded ?Last Taken ?Type pantoprazole 20 mg tablet,delayed 40 mg PO DAILY 04/1704/06/24 History release (Protonix) blood sugar diagnostic (Accu-Chek #100 ea 07/31/22 Unk nown Rx Guide test strips) lancets (Accu-Chek Softclix #100 ea 07/31/22 Unknown R x Lancets) lisinopril 40 mg tablet 40 mg PO DAILY #90 tabs 03/0204/06/24 Rx metoprolol succinate 200 mg 200 mg PO DAILY #90 tabs 1 05/19/23 04/06/24 Rx tablet,extended release 24 hr hydrochlorothiazide 25 mg tablet 25 mg PO DAILY 04/06/24 History albuterol sulfate 90 mcg/actuation 2 puff inhalation Q 4H PRN asthma 08/11/24 Unknown Rx aerosol inhaler (Ventolin HFA) #8.5 grams finasteride 5 mg tablet 5 mg PO QHS 08/15/24 Unknown History tirzepatide 10 mg/0.5 mL 10 mg subcut FR 08/15/2412/25 History subcutaneous pen injector Allergy/AdvReac Type Severity Reaction Status Date / Time dulaglutide (From [facility]) Allergy Severe NUMBNESS Verified 08/15/24 11:20 AROUND THE MOUTH Penicillins Allergy Severe hives and Verified 08/15/24 11:20 swelling Family History Mother Diabetes Dementia Father CVA (cerebral vascular accident) Dementia Surgical History Hx of arthroscopy of right knee Hx of arthroscopy of left knee [place] teeth removed Social History Smoking Status: Never smoker Review of Systems (Anesthesia) ROS Narrative System reviewed and no additional complaints, except as documented. 08/18/24738 <Electronically signed by Tahir Vidales MD > Date _ Tahir Vidales MD Cosigner Signature: Date CC: ~ Signed [facility] Work Phone: Consult note Author Blaine Sewell [facility] Note Date/Time August 18, 2024 9:02a [facility] Medical Records Department [address] [place] [address] Anesthesia Postop Eval I 08/18/24900 MR#: [id number] Acct: [id number] Name: PATRICK FOUNTAIN SANDRA Rep #:[id number] : 1970 54 From: Blaine JACKSON PCP: TERA Sandhu Status:REG [facility] Y Race: C Location: [facility] Anesthesia: Postop Eval I Current Vital Signs Temperature: 98.6 F Pulse Rate: 82 Blood Pressure: 151/93 Respiratory Rate: 16 Pulse Ox: 99 Oxygen Delivery Method: Room Air Assessment Airway patent: Yes Spontaneous unlabored respirations: Yes Mental status: Awake and Calm nausea: No Vomiting: No Anesthesia Complication: No Fluid Hydration Crystalloid volume administer (ml): 200 Total IV fluid infused: 200 Progress Note Anesthesia document: Postop Eval 1 completed: Yes 08/18/24901 <Electronically signed by Blaine Sewell CRNA> Date _ Blaine Sewell CRNA Cosigner Signature: Date CC: ~ Signed [facility] Work Phone: Consult note Author Tahir Vidales [facility] Note Date/Time August 18, 2024 9:21a [facility] Medical Records Department [address] [facility] [place] [address] Anesthesia Postop Eval II 08/18/24909 MR#: [id number] Acct: [id number] Name: KAPILPATRICKSARAH FLORES Rep #:[id number] : 1970 54 From: Tahir Vidales MD PCP: TERA Sandhu Status:REG [facility] [place] Y Race: C Location: [facility] [place] Anesthesia Postop Eval I Sum Postop Eval Completion status Anesthesia document: Postop Eval 1 completed: Yes Anesthesia Postop Eval I Summary Anesthesia Postop Eval I Summary: Anesthesia Postop Eval I: Assessment Summary Airway patent Yes 08/18/24 09:02 PROGRAM HOST.[email or web address] Spontaneous unlabored Yes 08/18/24 09:02 PROGRAM HOST.[email or web address] respirations Mental status Awake,Calm 08/18/24 09:02 PROGRAM HOST.JBLOU nausea No 08/18/24 09:02 PROGRAM HOST.JBLOU Vomiting No 08/18/24 09:02 PROGRAM HOST.JBLOU Anesthesia Postop Eval I: Fluid Summary Crystalloid volume administer 200 08/18/24 09:02 PROGRAM HOST.JBLOU (ml) Colloids volume administered ( ml) Blood Product volume administered (ml) Total IV fluid infused 200 08/18/24 09:02 PROGRAM HOST.JBLOU Anesthesia Postop Eval I: Summary Notes Anesthesia Complication No 08/18/24 09:02 PROGRAM HOST.JBLOU Anesthesia Complication Comment: Post-operative progress note Anesthesia: Postop Eval II Evaluation Mental status: Awake Pain Level: 0 nausea: No Vomiting: No 08/18/24 0910 <Electronically signed by Tahir Vidales MD > Date _ Tahir Vidales MD Cosigner Signature: Date CC: ~ Signed [facility] Work Phone: Evaluation note* Diagnosis Onset Date Resolution Status Bilateral acute otitis media acute BPH (benign prostatic hyperplasia) acute Diabetes type 2, uncontrolled acute Edema acute [facility] Work Phone: Evaluation note* Diagnosis Onset Date Resolution Status Bilateral acute otitis media acute BPH (benign prostatic hyperplasia) acute Diabetes type 2, uncontrolled acute Edema acute BPH (benign prostatic hyperplasia) acute Loss of bladder control acut e Lower back pain acute Lower extremity numbness acu te [facility] Work Phone: Evaluation note* Diagnosis Onset Date Resolution Status Bilateral acute otitis media acute BPH (benign prostatic hyperplasia) acute Diabetes type 2, uncontrolled acute Edema acute BPH (benign prostatic hyperplasia) acute Loss of bladder control acut e Lower back pain acute Lower extremity numbness acu te Lumbar spondylosis acute [facility] Work Phone: Evaluation note* Diagnosis Contusion of dorsum of left hand- Primary Examination for medicolegal reason Contusion of dorsum of left hand [facility]No reason for referral [facility] Work Phone: Summary Purpose Family History No Family History Records Found Relationship Condition Age at Onset Recorded Date/T bakari mother Diabetes mellitus Unknown Dementia Unknown father Cerebrovascular accident (CVA) Unknown Advance Directives No Advanced Directives Records Found Advance Directive Response Recorded Date/ Time Do you have a Healthcare Power of Film Editor Supervisor? No August 15, 2024 11:22am Chief Complaint and Reason for Visit Chief Complaint medication refills & Sinus W/ cough X5 days Reason for Visit Bilateral acute otit is media BPH (benign prostatic hyperplasia) Diabetes type 2, uncontrolled Edema Chief Complaint medication refills & Sinus W/ cough X5 days Urinary tract infection EORDER Reason for Visit Bilateral acute otit is media BPH (benign prostatic hyperplasia) Diabetes type 2, uncontrolled Edema BPH (benign prostatic hyperplasia) Loss of bladder control Lower back pain Lower extremity numbness Chief Complaint medication refills & Sinus W/ cough X5 days Urinary tract infection EORDER LUMBAR SPINE LUMBAR SPONDYLOSIS Reason for Visit Bilateral acute otit is media BPH (benign prostatic hyperplasia) Diabetes type 2, uncontrolled Edema BPH (benign prostatic hyperplasia) Loss of bladder control Lower back pain Lower extremity numbness Lumbar spondylosis Chief Complaint Admit Date Bronchitis August 11, 2024 3:49p m Reason for Visit Admit Date Asthmatic bronchitis August 11, 2024 3:49 pm Bilateral acute otitis media August 11 3:49pm Additional Source Comments (unrecognized sect ion and content) No Status Records FoundNo Status Records FoundNo Status Records FoundNo Status Records Found INFORMATION SOURCE (unrecogn ized section and content) DATE CREATED AUTHOR 05/11/2018 [facility] DATE CREATED AUTHOR AUTHOR'S ORGANIZ ATION 05/20/2018 [facility] DATE CREATED AUTHOR AUTHOR'S ORGANIZ ATION 05/02/2024 [facility] DATE CREATED AUTHOR AUTHOR'S ORGANIZ ATION 12/13/2024 [facility] Goals (unrecognized section and content) Goals may be documented in a n alternate sectionGoals may be documented in an alternate sectionGoals may be documented in an alternate sectionGoals may be documented in an alternate section Care Teams (unrecognized sec tion and content) Team Status: Active Member Role Status Dates JACKSON FITCH Family Provider Active Katya Jordan PROFESSOR OF THEOLOGY, PROFESSOR OF THEOLOGY-C Primary Care Provider Active Team Status: Inactive Member Role Status Dates Katya Jordan PROFESSOR OF THEOLOGY, PROFESSOR OF THEOLOGY-C Primary Care Pr ovider, Attending Provider, Referring Provider Active Team Status: Inactive Member Role Status Dates Katya Jordan PROFESSOR OF THEOLOGY, PROFESSOR OF THEOLOGY-C Primary Care Provider, Attend ing Provider Active Team Status: Active Member Role Status Dates Katya Jordan PROFESSOR OF THEOLOGY, PROFESSOR OF THEOLOGY-C Primary Care Provider, Attend ing Provider Active Team Status: Inactive Member Role Status Dates Katya Jordan PROFESSOR OF THEOLOGY, PROFESSOR OF THEOLOGY-C Primary Care Provider, Referr ing Provider Active Dr. Jan Farrar DO Attending Provider Active Team Status: Inactive Member Role Status Dates Katya Jordan PROFESSOR OF THEOLOGY, PROFESSOR OF THEOLOGY-C Primary Care Provider Active Dr. 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 Relationship Specialty Start Date End Date Katya Jordan CNP [address] [place] [id number] PCP - General Nurse Practitioner 03/19/24 Team Status: Active Member Role Status Dates Katya Jordan PROFESSOR OF THEOLOGY, PROFESSOR OF THEOLOGY-C Primary Care Provider Active Team Status: Inactive Member Role Status Dates Katya Jordan PROFESSOR OF THEOLOGY, PROFESSOR OF THEOLOGY-C Primary Care Provider Active Start: August 11, 2024 End: August 11, 2024 Katya Jordan PROFESSOR OF THEOLOGY, PROFESSOR OF THEOLOGY-C Attending Provider Active Start: August 11, 2024 End: August 11, 2024 Katya Jordan PROFESSOR OF THEOLOGY, PROFESSOR OF THEOLOGY-C Referring Provider Active Start: August 11, 2024 End: August 11, 2024 Team Status: Inactive Member Role Status Dates Katya Jordan PROFESSOR OF THEOLOGY, PROFESSOR OF THEOLOGY-C Primary Care Provider Active Start: August 18, 2024 End: August 18, 2024 Dr. Miguel Haley MD Attending Provider Active Start: August 18, 2024 End: August 18, 2024 Dr. Miguel Haley MD Referring Provider Active Start: August 18, 2024 End: August 18, 2024 Reason for Visit (unrecogniz ed section and content) Reason Comments Hand Pain Lt hand pain after g etting hand smashed in between steel today. [facility] FOR RECORDS PERTAINING TO PATIENTS WHO ARE OR HAVE BEEN ENROLLED IN A CHEMICAL DEPENDENCY/SUBSTANCEABUSE PROGRAM, SOME INFORMATION MAY BE OMITTED. This clinical summary was aggregated from multiple sources. Caution should be exercised in using it in the provision of clinical care. This summary normalizes information from multiple sources, and as a consequence, information in this document may materially change the coding, format and clinical context of patient data. In addition, data may be omitted in some cases. CLINICAL DECISIONS SHOULD BE BASED ON THE PRIMARY CLINICAL RECORDS. [facility]. provides no warranty or guarantee of the accuracy or completeness of information in this document.
--- NOTE | 2024-12-15 06:35 | NURSING ---
computer will not allow documentation in the area of wounds: pt has red abrasion to Lower Left Lip; ANICETO, no drng
[2024-12-15 06:36] VITALS: BP 136/76; PULSE 65; RESP 16; TEMP 36.1; O2SAT 98; BMI 51.4
--- NOTE | 2024-12-15 06:40 | PCM.PRE.AN2 ---
ASA Classification* ASA Classification ASA Classification: 3 Assessment & Plan Anesthesia* Anesthesia Assessment Anesthesia Assessment: Discussed sedation and/or anesthesia options, risks, benefits, and alternatives with patient/parents/legal guardian/POA. Questions invited. The patient/parents/legal guardian/POA seems to understand and agrees to proceed with anesthesia plan. Reviewed the physical assessment, medical history, allergy history and patient home medications list prior to surgery/procedure/anesthetic and documented any changes. Performed airway and anesthesia risk assessments. Anesthesia Type Anesthesia Type: MAC Anesthesia Focused Assessment* Airway Assessment Mouth opens: >3 cm Mallampati Score: II Labs Anesthesia Preop lab: CBC WBC 9.0 K/mm3 (4.4-11.0) 03/18/24 19:03 03/18/24 RBC 5.33 M/mm3 (4.6-6.2) 03/18/24 19:03 03/18/24 Hgb 15.7 g/dL (13.0-16.5) 03/18/24 19:03 03/18/24 Hct 47.3 % (40-54) 03/18/24 19:03 03/18/24 Plt Count 281 K/mm3 (150-450) 03/18/24 19:03 03/18/24 CHEMISTRY Potassium 3.6 mmol/L (3.5-5.1) 03/18/24 19:03 03/18/24 Sodium 137 mmol/L (136-145) 03/18/24 19:03 03/18/24 Magnesium 2.2 mg/dL (1.6-2.6) 08/31/23 22:10 08/31/23 BUN 14 mg/dL (7-18) 03/18/24 19:03 03/18/24 Creatinine 0.88 mg/dL (0.70-1.30) 03/18/24 19:03 03/18/24 Glucose 185 mg/dL (74-106) H 03/18/24 19:03 03/18/24 POC Glucose 175 mg/dL (74-106) H 08/18/24 08:11 08/18/24 COAG Pre-Assessment Diagnosis/Proposed Procedure Planned Operative Procedure(s): LEFT LUMBAR RFA L4,5,S1 Anesthesia History 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 When Was Last Pacemaker Check QUESTION #4 FULL TEXT: You/Your Family Experience fever (hyperthermia) with Anesthesia Last Oral Intake Last Oral intake: Last Oral Intake NPO since Meds taken in AM with sips of water? Meds patient instructed to take am of surgery PONV PONV - aviation survival technician: PONV - aviation survival technician Female No 12/08/24 13:09 HX of Motion Sickness No 12/08/24 13:09 HX of N/V After Surgery No 12/08/24 13:09 Non-Smoker Yes 12/08/24 13:09 Duration of Surgery greater No 12/08/24 13:09 than 60 minutes Number of Risk Factors 1 12/08/24 13:09 PONV Score Low Risk 12/08/24 13:09 Height & Weight Height & Weight: Anesthesia: Height & Weight Height 6 ft 08/18/24 08:02 Respiratory Assessment Respiratory Assessment - aviation survival technician: Respiratory Tract Infection Hx - aviation survival technician Hx Respiratory Tract Infection No 12/08/24 13:09 STOP Sleep Apnea STOP Sleep Apnea - aviation survival technician: STOP Sleep Apnea - aviation survival technician Hx Hypertension Yes: CONTROLLED WITH MEDS 12/08/24 13:09 Hx Sleep Apnea No 12/08/24 13:09 CPAP BIPAP Do you snore loudly (louder No 12/08/24 13:09 than talking or can be heard Do you often feel tired/ No 12/08/24 13:09 fatigued/ sleepy during daytime? Has anyone observed you stop No 12/08/24 13:09 breathing during sleep? STOP Results Negative 12/08/24 13:09 QUESTION #5 FULL TEXT : Do you snore loudly (louder than talking or can be heard through closed doors)? 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 Specify any problems Hx of Preganancy in last 3 N/A 12/08/24 13:09 Months Nurse Filling Out Transfusion DSCHRIBER 12/08/24 13:09 & Questions: Date: 12/08/24 12/08/24 13:09 Time: 13:10 12/08/24 13:09 Patient unable to answer at this time (ie. confused, unrespo /Reproduction History /Reproductive History - aviation survival technician: /Reproductive Hx- aviation survival technician Hx Now No 12/08/24 13:09 Gestational Age (in weeks): EDC: Hx Hx Para Hx Section SAB No 12/08/24 13:09 Active Medications Active Medications: Current Medications Generic Name Dose Route Start Last Admin Trade Name Freq PRN Reason Stop Dose Admin Lactated Ringer's 1,000 mls @ 15 mls/hr 12/15/24 06:15 IV .Q48H JOSE RAFAEL PFSH Medical History Wears glasses Pain Diabetes Arthritis History of echocardiogram Back pain Dietary restriction Gastric reflux Non-smoker Cardiology follow-up encounter Hypertension History of stress test BPH (benign prostatic hyperplasia) Asthmatic bronchitis Home Medications ?Medication ?Instructions ?Recorded ?Last Taken ?Type pantoprazole 20 mg tablet,delayed 40 mg PO DAILY 04/17/18 12/15/24 05:15 History release (Protonix) blood sugar diagnostic (Accu-Chek #100 ea 07/31/22 Unknown Rx Guide test strips) lancets (Accu-Chek Softclix #100 ea 07/31/22 Unknown Rx Lancets) lisinopril 40 mg tablet 40 mg PO DAILY #90 tabs 03/18/24 12/14/24 Rx metoprolol succinate 200 mg 200 mg PO DAILY #90 tabs 03/18/24 12/15/24 05:15 Rx tablet,extended release 24 hr albuterol sulfate 90 mcg/actuation 2 puff inhalation Q4H PRN asthma 08/11/24 Unknown Rx aerosol inhaler (Ventolin HFA) #8.5 grams finasteride 5 mg tablet 5 mg PO DAILY 08/15/24 12/14/24 History tirzepatide 10 mg/0.5 mL 10 mg subcut FR 08/15/24 12/05/24 History subcutaneous pen injector Allergy/AdvReac Type Severity Reaction Status Date / Time dulaglutide (From [facility]) Allergy Severe NUMBNESS Verified 12/15/24 06:28 AROUND THE MOUTH Penicillins Allergy Severe hives and Verified 12/15/24 06:28 swelling Family History Mother Diabetes Dementia Father CVA (cerebral vascular accident) Dementia Surgical History Hx of arthroscopy of right knee Hx of arthroscopy of left knee [place] teeth removed Social History Smoking Status: Never smoker Review of Systems (Anesthesia) ROS Narrative System reviewed and no additional complaints, except as documented.
[2024-12-15] MEDS: Lactated Ringers 1,000 ML 15 ML IV (06:49)
--- NOTE | 2024-12-15 07:30 | RAD_ITS ---
PROCEDURE: L/S SPINE MIN 4 VIEWS 12/15/2024 REASON FOR EXAM: LUMBAR ABLATION, L4, L5, S1, LEFT TECHNIQUE: Procedure Code: RADSPLS Modality: DX Procedure: L/S SPINE MIN 4 VIEWS COMPARISON: 08/18/2024. FINDINGS: Intraoperative fluoroscopy was performed. 12.9 seconds of fluoroscopic time. 11.46 mGy. See procedure report for full details. RAD/L/S Spine Min 4 Views IMPRESSION: As above. Reading Location: [id number]
[2024-12-15] MEDS: Lidocaine 1% (30 ml sdv) 30 ML Vial (07:38)
[2024-12-15 07:48] VITALS: BP 101/60; BP 136/76; PULSE 68; RESP 16; TEMP 36.2; O2SAT 98
[2024-12-15 07:50] VITALS: BP 101/60; BP 101/63; BP 136/76; PULSE 67; PULSE 68; RESP 16; RESP 18; TEMP 36.2; O2SAT 95; O2SAT 98
--- NOTE | 2024-12-15 07:50 | PCM.POST.ANE ---
Anesthesia: Postop Eval I Current Vital Signs Temperature: 97.2 F Pulse Rate: 68 Blood Pressure: 101/60 Respiratory Rate: 18 Pulse Ox: 95 Oxygen Delivery Method: Room Air Assessment Airway patent: Yes Spontaneous unlabored respirations: Yes Mental status: Awake and Calm nausea: No Vomiting: No Anesthesia Complication: No Fluid Hydration Crystalloid volume administer (ml): 400 Total IV fluid infused: 400 Progress Note Anesthesia document: Postop Eval 1 completed: Yes
--- NOTE | 2024-12-15 07:50 | PCM.OPRPT ---
Operative Report (Standard) Operative Information Date of Procedure: 12/15/24 Pre-Operative Diagnosis: Lumbosacral spondylosis, lumbosacral degenerative disc disease, lumbosacral facet arthropathy Post-Operative Diagnosis: Lumbosacral spondylosis, lumbosacral degenerative disc disease, lumbosacral facet arthropathy Surgery/Procedure Performed: Left-sided lumbar radiofrequency ablation of the medial branch at L4-5, L5-S1 counter help: No Type of Anesthesia: Local MAC RN Documented Start/Stop Times: Operation Date: 12/15/24 07:30 Case Time Into Pre-Op 12/15/24 06:13 Out of Pre-Op 12/15/24 07:22 Anesthesia Start 12/15/24 07:26 Into Room 12/15/24 07:26 Procedure Start 12/15/24 07:36 Procedure End 12/15/24 07:44 Anesthesia End 12/15/24 07:45 Out of Room 12/15/24 07:45 Into Recovery 12/15/24 07:46 Procedure Start Time: 07:51 Procedure Stop Time: 07:51 Select all DRAINS/GRAFTS/IMPLANTS that apply: None Estimated Blood Loss: 1 Specimen collected: No Description of surgery: ANESTHESIA: MAC. BLOOD LOSS: Minimal. COMPLICATIONS: None. DESCRIPTION OF PROCEDURE: History and physical of today was reviewed. Risks and benefits of the procedure were explained. The patient understood and agreed to proceed. Informed consent was obtained. IV inserted per routine protocol. The patient was taken to the operating room and placed in the prone position with a pillow positioned underneath the abdomen. The left side of the lower back was prepped and draped in a sterile fashion using iodine x3. Under fluoroscopy guidance in an oblique view, the L3 through S1 vertebral bodies were visualized. The skin and subcutaneous tissue was anesthetized with approximately 10 mL of 1% lidocaine using a 25-gauge regular needle. Under direct visualization on fluoroscopy at approximately 25-degree angle, starting on the left L3, ending on the left S1, passing through the L4 and L5, using a 20-gauge 15-cm with a 10-mm curved active-tip radiofrequency ablation needle, the needle was passed through the skin. The tip of the needle was maneuvered and directed towards the superior medial gutter of the transverse process at the vicinity of the medial branch. Once the tip of the needle was in contact with the bone, the needle was pulled approximately 2 mm off the bone. The stylette of each needle was then removed. After negative aspiration of blood or CSF and confirmation on AP, oblique as well as lateral view, the radiofrequency ablation probe was then inserted at each level. Impedance was then recorded at L3 to be 241 ohm, at L4 to be 234 ohm, at L5 to be 312 ohm, and at S1 to be 243 ohm. Motor evoked potential was then initiated to 2 Hz and 1.5 volt without any motor response at each corresponding level. The probe was then removed intact and a total of 6 mL of preservative-free 1% lidocaine was injected in divided doses between those four levels after negative aspiration of blood or CSF. The radiofrequency ablation probe was then reinserted. After confirmation on AP, oblique as well as lateral view, radiofrequency ablation was then initiated to 80 degree Celsius for 90 second at each level. Once concluded, the probe was then removed intact. A total of 6 mL of preservative-free 0.25% Marcaine with 40 mg of Depo-Medrol was injected in divided doses between those four levels. The needles were then removed intact. The patient experienced no sign or symptoms of intrathecal or intravascular injection. The patient experienced no paresthesia. The procedure was completed without any apparent difficulty or any complications. The patient appeared to tolerate it well. Sensory as well as motor exam was unchanged from prior to the procedure. ASSESSMENT AND PLAN: This is a 54-year-old male with lumbosacral spondylosis, lumbosacral degenerative disc disease, lumbosacral facet arthropathy, status post left-sided lumbar radiofrequency ablation of the medial branch at L4, L5, S1, patient will continue his current medications, patient will follow-up in approximately 2 weeks for reevaluation. Surgical Findings: 0 Complications Complications: No Admit VTE Documentation VTE Present on Admission: No VTE Mechan Device Prophylaxis: None VTE Pharm Prophylaxis ordered?: No
[2024-12-15 07:55] VITALS: BP 116/72; BP 136/76; PULSE 64; RESP 16; O2SAT 98
[2024-12-15 08:00] VITALS: BP 111/69; BP 136/76; PULSE 65; RESP 16; TEMP 36.6; O2SAT 100
[2024-12-15 08:01] VITALS: BP 136/76
--- NOTE | 2024-12-15 09:02 | POSTOPAN2_ITS ---
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.LIZZETTEOBGriselda Spontaneous unlabored Yes 12/15/24 07:50 DEOILING MACHINE OPERATOR.CASANDRA respirations Mental status Awake,Calm 12/15/24 07:50 DEOILING MACHINE OPERATOR.CASANDRA nausea No 12/15/24 07:50 DEOILING MACHINE OPERATOR.CASANDRA Vomiting No 12/15/24 07:50 DEOILING MACHINE OPERATOR.CASANDRA Anesthesia Postop Eval I: Fluid Summary Crystalloid volume administer 400 12/15/24 07:50 DEOILING MACHINE OPERATOR.ARAVINDY (ml) Colloids volume administered ( ml) Blood Product volume administered (ml) Total IV fluid infused 400 12/15/24 07:50 DEOILING MACHINE OPERATOR.CASANDRA Anesthesia Postop Eval I: Summary Notes Anesthesia Complication No 12/15/24 07:50 DEOILING MACHINE OPERATORDAVID Anesthesia Complication Comment: Post-operative progress note Anesthesia: Postop Eval II Evaluation Mental status: Awake Pain Level: 0 nausea: No Vomiting: No
--- NOTE | 2024-12-15 09:02 | PCM.POSTANE2 ---
Anesthesia Postop Eval I Sum Postop Eval Completion status Anesthesia document: Postop Eval 1 completed: Yes Anesthesia Postop Eval I Summary Anesthesia Postop Eval I Summary: Anesthesia Postop Eval I: Assessment Summary Airway patent Yes 12/15/24 07:50 ER TECH.LIZZETTEOBGriselda Spontaneous unlabored Yes 12/15/24 07:50 ER TECH.CASANDRA respirations Mental status Awake,Calm 12/15/24 07:50 ER TECH.CASANDRA nausea No 12/15/24 07:50 ER TECH.CASANDRA Vomiting No 12/15/24 07:50 ER TECH.CASANDRA Anesthesia Postop Eval I: Fluid Summary Crystalloid volume administer 400 12/15/24 07:50 ER TECH.ARAVINDY (ml) Colloids volume administered ( ml) Blood Product volume administered (ml) Total IV fluid infused 400 12/15/24 07:50 ER TECH.CASANDRA Anesthesia Postop Eval I: Summary Notes Anesthesia Complication No 12/15/24 07:50 ER TECHDAVID Anesthesia Complication Comment: Post-operative progress note Anesthesia: Postop Eval II Evaluation Mental status: Awake Pain Level: 0 nausea: No Vomiting: No
== END 2024-12-15 08:21 | disposition home or self-care (01) ==
LOC: SDC 05:46 → AC 05:47
PROVIDERS: PCP Nurse Practitioner; Referring Provider Anesthesiology Pain Medicine; Visit Provider Anesthesiology Pain Medicine
PROC: (CPT 64636; principal; 2024-12-15 07:25)
DX: M47.817 Spondylosis without myelopathy or radiculopathy, lumbosacral region (principal); M51.379 Other intervertebral disc degeneration, lumbosacral region without mention of lumbar back pain or lower extremity pain
CPT/HCPCS: 64636; 64635; 72110; 76000; 82962

== ENCOUNTER → 2025-03-05 | Outpatient (CLI) | payer BC, SELFPAY ==
--- NOTE | 2025-03-05 15:44 | RAD_ITS ---
PROCEDURE: CHEST PA AND LATERAL 03/05/2025 REASON FOR EXAM: ACUTE LOWER RESPIRATORY INFECTION TECHNIQUE: Procedure Code: RADCXR Modality: DX Procedure: CHEST PA AND LATERAL COMPARISON: None FINDINGS: There is bilateral parahilar peribronchial thickening consistent with viral pneumonia or acute bronchitis. There is no lobar consolidation or pleural effusion. The heart borders mediastinum and pulmonary vascular pattern are normal. The upper abdominal bowel gas pattern is normal. There is mild multilevel degenerative disc disease of the thoracic spine. RAD/Chest PA and Lateral IMPRESSION: Viral pneumonia or acute bronchitis. Reading Location: [id number]
== END | disposition home or self-care (01) ==
LOC: MTRAD 15:43
PROVIDERS: PCP Nurse Practitioner
DX: J22 Unspecified acute lower respiratory infection (principal)
CPT/HCPCS: 71046

== ENCOUNTER → 2025-03-11 | Outpatient (CLI) | payer BC, SELFPAY ==
--- OUTSIDE RECORDS SUMMARY | 2025-03-11 21:28 | XMS RPT_ITS | CCD ---
Author Organization [facility] Care Team Providers Care Problem Manager Name Role Phone JORDAN, KATYA L Referring Unavailable Jordan PLASTICS PROCESS HAND, PLASTICS PROCESS HAND-C Katya Primary Care Provider Jordan PLASTICS PROCESS HAND, PLASTICS PROCESS HAND-C Katya Referring Provider Dr. Jan Farrar Attending Provider Jordan PATIENT RELATIONS REPRESENTATIVE, Katya L Primary Care Provider SHANTI CALIXTO Referring Unavailabl SHANTI Rice Attending Unavailabl e JORDAN, KATYA L Primary Care Unavailable SHANTI CALIXTO Attending Unavailabl e JORDAN, KATYA L Primary Care Unavailable Jordan PLASTICS PROCESS HAND-C, Katya Primary Care Provider Jordan PLASTICS PROCESS HAND-C, Katya Attending Provider Jordan PLASTICS PROCESS HAND-C, Katya Referring Provider Dr. Miguel Haley MD Attending Provider Dr. Miguel Haley MD Referring Provider [phone] Jordan PLASTICS PROCESS HAND-C, Katya Primary Care Provider Miguel Haley Attending Unavailable Miguel Haley Referring Unavailable Jordan PLASTICS PROCESS HAND, Katya Primary Care Unavailable Jordan PLASTICS PROCESS HAND, Katya Attending Unavailable Jordan PLASTICS PROCESS HAND, Katya Referring Unavailable Jordan PLASTICS PROCESS HAND, Katya Primary Care Unavailable Miguel Haley Attending Unavailable Miguel Haley Referring Unavailable Jordan PLASTICS PROCESS HAND, Katya Primary Care Unavailable Miguel Haley Attending Unavailable Miguel Haley Referring Unavailable Jordan PLASTICS PROCESS HAND, Katya Primary Care Unavailable Allergies Allergy Classification Reported Allergen(s) Allergy Type Date of Onset Reaction(s) Facility (10 sources) Penicillins; Translations: [PENICILLINS] Propensity to adverse reactions to drug (disorder) 1 Swelling [facility] Repository (4 sources) Cefuroxime Drug Allergy 2 N all the time [facility] (6 sources) dulaglutide Drug Allergy 2 NUMBNESS AROUND THE MOUTH [facility] (1 source) dulaglutide Drug Allergy 5 [facility] Repository Medications Current Medications Medication Drug Class(es) Dates Sig (Normalized) Sig (Original) [id number] 200 actuat albuterol 0.09 mg/actuat metered dose inhaler (14 sources) beta2-Adrenergic Agonist Start: 08-11-2024 Albuterol Sulfate (Ventolin Hfa) 90 mcg/actuation HFA aerosol inhaler Active 2 NMA INHALATION Q4H as needed for asthma 8.5 12 August 11, 2024 4:11pm Unspecified asthma, uncomplicated Start: 02-22-2021 End: 05-16-2022 Albuterol Sulfate (Ventolin Hfa) 90 mcg/actuation HFA aerosol inhaler Discontinued 2 NMA INHALATION Q4H as needed for asthma 8.5 12 September 26, 2021 3:53pm May 16, 2022 6:39pm Unspecified asthma, uncomplicated Start: 02-22-2021 End: 05-16-2022 take 1 puff(s) by inhalation every four hours Albuterol Sulfate (Ventolin Hfa) 90 mcg/actuation HFA aerosol inhaler Discontinued 2 PUFF INHALATION Q4H 8.5 September 26, 2021 3:53pm May 16, 2022 6:39pm pantoprazole 20 mg delayed release oral tablet (13 sources) Proton Pump Inhibitor Start: 04-17-2018 take [...] Active Tirzepatide 10 mg/0.5 mL pen injector (6 sources) Start: 08-15-2024 Tirzepatide 10 mg/0.5 mL pen injector Active 10 mg SC FR August 15, 2024 12:00am Start: 09-18-2023 End: 08-15-2024 Tirzepatide 10 mg/0.5 mL pen injector Discontinued 10 mg SC EVERY WEEK 6.5 90 3 September 18, 2023 2:19pm August 15, 2024 11:21am Start: 09-18-2023 End: 08-15-2024 Tirzepatide 10 mg/0.5 mL pen injector Discontinued 10 mg SC EVERY WEEK 6.5 90 September 18, 2023 2:19pm August 15, 2024 11:21am Start: 09-06-2023 End: 09-18-2023 Tirzepatide 10 mg/0.5 mL pen injector Discontinued 10 mg SC EVERY WEEK 6.5 90 September 06, 2023 12:00am September 18, 2023 2:19pm Start: 09-06-2023 End: 09-18-2023 Tirzepatide 10 mg/0.5 mL pen injector Discontinued 10 mg SC EVERY WEEK 6.5 90 September 06, 2023 12:00am September 18, 2023 2:19pm Completed/Discontinued Medications Medication Drug Class(es) Dates Sig (Normalized) Sig (Original) amLODIPine 5 mg oral tablet (12 sources) Dihydropyridine Calcium Channel Loli Start: 12-13-2017 End: 04-17-2018 take 1 tablet by mouth once daily Amlodipine 5 mg tablet Discontinued 5 mg PO DAILY 90 3 March 22, 2018 4:34pm April 17, 2018 4:16pm azithromycin 250 mg oral tablet (6 sources) Macrolide Antimicrobial Start: 04-03-2019 End: 04-08-2019 take 2 tablets by mouth once daily, then take 1 tablet by mouth once daily at mealtime Azithromycin 250 mg tablet Discontinued 250 mg PO daily 6 5 0 April 03, 2019 1:00am April 07, 2019 1:00am April 08, 2019 1:08am 2 po qd for 1 day then 1 po qd for 4 days with food or after eating baclofen 10 mg oral tablet (6 sources) gamma-Aminobutyric Acid-ergic Agonist Start: 04-19-2021 End: 12-01-2021 take 1 tablet by mouth three times daily Baclofen 10 mg tablet Discontinued 10 mg PO THREE TIMES A DAY 60 April 19, 2021 1:00am December 01, 2021 6:27pm benzonatate 200 mg oral capsule (2 sources) Non-narcotic Antitussive Start: 03-29-2023 End: 08-11-2024 take 1 capsule by mouth three times daily as needed for cough Benzonatate 200 mg capsule Discontinued 200 mg PO THREE TIMES A DAY as needed for cough 45 March 29, 2023 1:00am August 11, 2024 4:05pm cefuroxime 500 mg oral tablet (6 sources) Cephalosporin Antibacterial Start: 03-16-2021 End: 04-19-2021 take 1 tablet by mouth twice daily Cefuroxime Axetil 500 mg tablet Discontinued 500 mg PO TWICE A DAY 20 March 16, 2021 1:00am April 19, 2021 5:39pm ciprofloxacin 500 mg oral tablet (20 sources) Quinolone Antimicrobial Start: 09-06-2023 End: 12-07-2023 take 1 tablet by mouth every twelve hours Ciprofloxacin Hcl 500 mg tablet Discontinued 500 mg PO Q12H 20 September 06, 2023 12:00am December 07, 2023 10:21am Start: 05-02-2021 End: 03-30-2022 take 1 tablet by mouth twice daily Ciprofloxacin Hcl 500 mg tablet Discontinued 500 mg PO TWICE A DAY September 26, 2021 3:51pm March 30, 2022 5:03pm Start: 02-22-2021 End: 04-19-2021 take 1 tablet by mouth twice daily Ciprofloxacin Hcl 500 mg tablet Discontinued 500 mg PO TWICE A DAY 20 February 23, 2021 4:12pm April 19, 2021 5:39pm Start: 01-05-2020 End: 02-05-2020 take 1 tablet by mouth twice daily Ciprofloxacin Hcl (Cipro) 500 mg tablet Discontinued 500 mg PO TWICE A DAY 14 January 05, 2020 12:00am February 05, 2020 7:02pm clarithromycin 500 mg oral tablet (14 sources) Macrolide Antimicrobial Start: 08-11-2024 End: 08-15-2024 [...] 3:53pm cyclobenzaprine hydrochloride 10 mg oral tablet (2 sources) Muscle Relaxant Start: 08-31-2023 End: 03-18-2024 take 1 tablet by mouth three times daily as needed for muscle spasms Cyclobenzaprine 10 mg tablet Discontinued 10 mg PO THREE TIMES A DAY as needed for Muscle Spasm August 31, 2023 12:00am March 18, 2024 7:54pm doxycycline hyclate 100 mg oral capsule (2 sources) Tetracycline-c lass Drug Start: 03-29-2023 End: 12-07-2023 take 1 capsule by mouth twice daily Doxycycline Hyclate 100 mg capsule Discontinued 100 mg PO TWICE A DAY March 29, 2023 1:00am December 07, 2023 10:21am 0.5 ml dulaglutide 3 mg/ml auto-injector (18 sources) GLP-1 Receptor Agonist Start: 04-25-2021 End: 06-09-2021 Dulaglutide (Trulicity) 0.75 mg/0.5 mL pen injector Discontinued 0.75 mg SC EVERY WEEK April 25, 2021 1:00am June 09, 2021 5:44pm Start: 04-25-2021 End: 09-26-2021 Dulaglutide (Trulicity) 1.5 mg/0.5 mL pen injector Discontinued 1.5 mg SC EVERY WEEK 6.5 90 3 June 09, 2021 5:50pm September 26, 2021 3:48pm empagliflozin 25 mg oral tablet (20 sources) Sodium-Glucose Cotransporter 2 Inhibitor Start: 02-05-2020 End: 12-17-2023 take 1 tablet by mouth once daily Empagliflozin (Jardiance) 25 mg tablet Discontinued 25 mg PO DAILY 90 January 10, 2023 5:47pm December 17, 2023 9:27am finasteride 5 mg oral tablet (10 sources) 5-alpha Reductase Inhibitor Start: 05-16-2022 End: 08-15-2024 take 1 tablet by mouth once daily Finasteride 5 mg tablet Discontinued 5 mg PO DAILY 90 March 18, 2024 7:54pm August 15, 2024 11:21am hydroCHLOROthiazide 25 mg oral tablet (20 sources) Thiazide Diuretic Start: 04-07-2024 End: 12-08-2024 take 1 tablet by mouth once daily Hydrochlorothiazide 25 mg tablet Discontinued 25 mg PO DAILY April 07, 2024 1:00am December 08, 2024 1:08pm Start: 04-17-2018 End: 12-17-2023 take 1 tablet by mouth once daily Hydrochlorothiazide 25 mg tablet Discontinued 25 mg PO DAILY 90 January 10, 2023 5:48pm December 17, 2023 9:27am hydroxychloroquine sulfate 200 mg oral tablet (6 sources) Antimalarial, Antirheumatic Agent Start: 04-03-2019 End: 01-05-2020 take 1 tablet by mouth twice daily Hydroxychloroquine (Plaquenil) 200 mg tablet Discontinued 200 mg PO TWICE A DAY April 03, 2019 1:00am January 05, 2020 5:28pm lisinopril 40 mg oral tablet (20 sources) Angiotensin Converting Enzyme Inhibitor Start: 12-13-2017 End: 03-18-2024 take 1 tablet by mouth once daily Lisinopril 40 mg tablet Discontinued 40 mg PO DAILY 90 January 10, 2023 5:48pm March 18, 2024 7:56pm 24 hr metoprolol succinate 200 mg extended release oral tablet (20 sources) beta-Adrenergic Loli Start: 12-13-2017 End: 03-18-2024 take 1 tablet by mouth once daily Metoprolol Succinate 200 mg tablet extended release 24 hr Discontinued 200 mg PO DAILY 90 January 10, 2023 5:48pm March 18, 2024 7:56pm Start: 12-13-2017 End: 12-13-2017 take 1 tablet by mouth twice daily Metoprolol Tartrate 100 mg tablet Discontinued 100 mg PO TWICE A DAY December 13, 2017 12:00am December 13, 2017 8:17pm metroNIDAZOLE 250 mg oral tablet (6 sources) Nitroimidazole Antimicrobial Start: 05-02-2021 End: 05-12-2021 take 1 tablet by mouth three times daily Metronidazole 250 mg tablet Discontinued 250 mg PO THREE TIMES A DAY 30 10 May 02, 2021 1:00am May 11, 2021 1:00am May 12, 2021 1:03am predniSONE 20 mg oral tablet (20 sources) Start: 08-11-2024 End: 08-15-2024 take 2 tablets by mouth once daily Prednisone 20 mg tablet Discontinued 40 mg PO DAILY 10 August 11, 2024 4:07pm August 15, 2024 [...] mg / trimethoprim 160 mg oral tablet (12 sources) Dihydrofolate Reductase Inhibitor Antibacterial, Sulfonamide Antimicrobial Start: 05-24-2020 End: 06-03-2020 Sulfamethoxazole-Trimethopri m 800-160 mg tablet Discontinued 1 {tbl} PO TWICE A DAY May 24, 2020 1:00am June 02, 2020 1:00am June 03, 2020 1:02am hematuria Start: 05-24-2020 End: 06-03-2020 take 1 tablet by mouth twice daily Sulfamethoxazole-Trimethoprim Discontinu ed 1 TABLET PO TWICE A DAY 19 01May 24, 2020 1:00am June 03, 2020 1:02am Start: 01-21-2018 End: 01-31-2018 Sulfamethoxazole-Trimethopri m 800-160 mg tablet Discontinued 1 {tbl} PO TWICE A DAY January 21, 2018 12:00am January 30, 2018 12:00am January 31, 2018 12:07am hematuria Start: 01-21-2018 End: 01-31-2018 take 1 tablet by mouth twice daily Sulfamethoxazole-Trimethoprim Discontinu ed 1 TABLET PO TWICE A DAY 19 01January 21, 2018 12:00am January 31, 2018 12:07am tamsulosin hydrochloride 0.4 mg oral capsule (20 sources) alpha-Adrenergic Loli Start: 12-13-2017 End: 06-02-2022 take 1 capsule by mouth once daily Tamsulosin 0.4 mg capsule Discontinued 0.4 mg PO DAILY 90 March 30, 2022 5:03pm June 02, 2022 9:24am Tirzepatide (Mounjaro) 5 mg/0.5 mL pen injector (12 sources) Start: 12-01-2021 End: 03-29-2023 Tirzepatide (Mounjaro) 5 mg/0.5 mL pen injector Discontinued 5 mg SC EVERY WEEK 2 December 01, 2021 6:29pm March 29, 2023 5:38pm Start: 12-01-2021 End: 03-29-2023 Tirzepatide (Mounjaro) 5 mg/ 0.5 mL pen [...] Tirzepatide 7.5 mg/0.5 mL pe n injector (2 sources) Start: 03-29-2023 End: 09-06-2023 Tirzepatide 7.5 mg/0.5 mL pe n injector Discontinued 7.5 mg SC EVERY WEEK March 29, 2023 1:00am September 06, 2023 3:36pm tumeric (4 sources) Start: 01-05-2020 End: 04-19-2021 tumeric Discontinued PO 2019 12:00am April 19, 2021 5:39pm Start: 01-05-2020 End: 04-19-2021 tumeric Discontinued PO Octo 2019 11:00pm April 19, 2021 4:39pm tumeric 500 mg capsule (2 sources) Start: 01-05-2020 End: 04-19-2021 tumeric 500 mg capsule Disco ntinued PO 0 January 05, 2020 12:00am April 19, 2021 5:39pm Start: 01-05-2020 End: 04-19-2021 tumeric 500 mg capsule Disco ntinued PO January 05, 2020 12:00am April 19, 2021 5:39pm Problems Problem Classification Problem Date Documented Da te Episodic/Chronic Abdominal pain (8 sources) Left flank pain; Translations: [Unspecified abdominal pain] 04-19-2021 Episodic Administrative/social admission (3 sources) Medicolegal procedure status; Translations: [Encounter for examination and observation for other specified reasons] Onset: 03-19-2024 03-19-2024 Episodic Asthma (6 sources) Asthmatic bronchitis; Translations: [Unspecified asthma, uncomplicated] 02-22-2021 Chronic Diabetes mellitus with complications (7 sources) Type II diabetes mellitus uncontrolled; Translations: [Uncontrolled type 2 diabetes mellitus] Onset: 04-19-2024 04-19-2021 Chronic Diabetes mellitus without complication (6 sources) Type 2 diabetes mellitus; Translations: [Type 2 diabetes mellitus without complications] 01-06-2020 Chronic Essential hypertension (6 sources) Hypertensive disorder; Translations: [Essential (primary) hypertension] 04-05-2019 Chronic Genitourinary symptoms and ill-defined conditions (5 sources) Urinary incontinence; Translations: [Unspecified urinary incontinence] 05-16-2022 Chronic Genitourinary symptoms and ill-defined conditions (10 sources) Increased frequency of urination; Translations: [Frequency of micturition] 05-16-2022 Episodic Hyperplasia of prostate (6 sources) Benign prostatic hyperplasia; Translations: [Benign prostatic hyperplasia without lower urinary tract symptoms] 04-05-2019 Chronic Lymphadenitis (6 sources) Head and neck lymphadenopathy; Translations: [Generalized enlarged lymph nodes] 05-24-2020 Episodic Other connective tissue disease (2 sources) Cramp; Translations: [Cramp and spasm] 09-08-2023 Episodic Other gastrointestinal disorders (2 sources) Diarrhea; Translations: [Diarrhea, unspecified] 12-07-2023 Episodic Other nervous system disorders (5 sources) Numbness of lower limb ; Translations: [Anesthesia of skin] 05-16-2022 Episodic Other nutritional; endocrine; and metabolic disorders (4 sources) Weight gain; Translations: [Abnormal weight gain] 12-13-2017 Episodic Other nutritional; endocrine; and metabolic disorders (4 sources) Weight loss; Translations: [Abnormal weight loss] 02-05-2020 Episodic Other nutritional; endocrine; and metabolic disorders (2 sources) Weight increased; Translations: [Abnormal weight gain] 12-13-2017 Episodic Other nutritional; endocrine; and metabolic disorders (2 sources) Weight decreased; Translations: [Abnormal weight loss] 02-05-2020 Episodic Other upper respiratory infections (2 sources) Acute maxillary sinusitis; Translations: [Acute maxillary sinusitis, unspecified] 03-29-2023 Episodic Otitis media and related conditions (12 sources) Otitis media; Translations: [Otitis media, unspecified, left ear] 04-05-2019 Episodic Peripheral and visceral atherosclerosis (6 sources) Peripheral vascular disease; Translations: [Peripheral vascular disease, unspecified] 03-22-2018 Chronic Residual codes; unclassified (1 source) Obstructive sleep apnea (adult) (pediatric); Translations: [Obstructive sleep apnea (adult) (pediatric)] Onset: 04-25-2018 Chronic Residual codes; unclassified (6 sources) Obstructive sleep apnea syndrome; Translations: [Obstructive sleep apnea (adult) (pediatric)] 03-27-2018 Chronic Residual codes; unclassified (6 sources) Edema; Translations: [Edema, unspecified] 03-22-2018 Episodic Skin and subcutaneous tissue infections (12 sources) Cellulitis of leg, excluding foot; Translations: [Cellulitis of right lower limb] 01-21-2018 Episodic Spondylosis; intervertebral disc disorders; other back problems (6 sources) Lumbar spondylosis; Translations: [Spondylosis without myelopathy or radiculopathy, lumbar region] Onset: 08-22-2024 06-02-2022 Chronic Spondylosis; intervertebral disc disorders; other back problems (9 sources) Low back pain; Translations: [Low back pain] 05-16-2022 Episodic Superficial injury; contusion (3 sources) Contusion of left hand, initial encounter; Translations: [Contusion of hand(s)] Onset: 03-19-2024 03-19-2024 Episodic Unclassified (1 source) Low back pain, unspecified; Translations: [Low back pain, unspecified] Onset: 05-01-2024 Urinary tract infections (6 sources) Cystitis; Translations: [Cystitis, unspecified without hematuria] 01-06-2020 Episodic Varicose veins of lower extremity (6 sources) Varicose veins of lower extremity; Translations: [Asymptomatic varicose veins of unspecified lower extremity] 03-22-2018 Episodic Results Test Name Value Interpretation Reference Range Facility Bedside Glucoseon 12-15-2024 [place] GLU 181 mg/dL High 74-106 [facility] Comment on above: Result Comment: MARIA ISABEL RAPHAEL OF PATIENT CARE PER NURSING PROTOCOL Performed By: #### L 501.080 #### [facility] [address] [place], [address] Glucose measurement at [facility] deOrdered By: Miguel Haley on 12-15-2024 Glucose [Mass/Vol] 181 mg/dL High 74-106 [facility] Comment on above: MANAGEMENT OF PATIEN T CARE PER NURSING PROTOCOL L/S Spine Min 4 Viewson 12-01 L/S Spine Min 4 Views [facility] Imaging Services [address] [place] [address] L/S Spine Min 4 Views MR#: [id number] Acct: [id number] Name: PATRICK FOUNTAIN Rep #: [id number] : 1970 M 54 From: Garret Pratt MD PCP: Katya Jordan NP-C Status: [facility] Study: L/S Spine Min 4 Views Date of Exam: 12/15/24 Exam# [id number] Ordering Dr: Miguel Haley MD PROCEDURE: L/S SPINE MIN 4 VIEWS 12/15/2024 REASON FOR EXAM: LUMBAR ABLATION, L4, L5, S1, LEFT TECHNIQUE: Procedure Code: RADSPLS Modality: DX Procedure: L/S SPINE MIN 4 VIEWS COMPARISON: 08/18/2024. FINDINGS: Intraoperative fluoroscopy was performed. 12.9 seconds of fluoroscopic time. 11.46 mGy. See procedure report for full details. RAD/L/S Spine Min 4 Views IMPRESSION: As above. Reading Location: [facility] CC: PLASTICS PROCESS HAND-C Katya Jordan; Dr. Miguel Haley MD Estimator And Drafter: Signed [facility] MR/POSTOP.ANE 12-15-2024 MR/POSTOP.[facility] Medical Records Department [address] [place] [address] Anesthesia Postop Eval I 12/15/24 0750 MR#: [id number] Acct: [id number] Name: PATRICK FOUNTAIN Rep #: [id number] : 1970 54 From: Brittni Tamez CRNA PCP: Katya Jordan PLASTICS PROCESS HAND-C Status:REG SDC Y Race: C Location: [place] [address] Anesthesia: Postop Eval I Current Vital Signs Temperature: 97.2 F Pulse Rate: 68 Blood Pressure: 101/60 Respiratory Rate: 18 Pulse Ox: 95 Oxygen Delivery Method: Room Air Assessment Airway patent: Yes Spontaneous unlabored respirations: Yes Mental status: Awake and Calm nausea: No Vomiting: No Anesthesia Complication: No Fluid Hydration Crystalloid volume administer (ml): 400 Total IV fluid infused: 400 Progress Note Anesthesia document: Postop Eval 1 completed: Yes 12/15/24 0750 Date Brittni Tamez TRAVEL SPECIALIST Cosigner Signature: Date CC: Signed Normal [facility] MR/[id number] 12-15-2024 [facility] Medical Records Department [address] [place] [address] Anesthesia Postop Eval II 12/15/24 0902 MR#: [id number] Acct: [id number] Name: PATRICK FOUNTAIN Rep #: [id number] : 1970 54 From: Tahir Vidales MD PCP: TERA Sandhu Status:[facility] Y Race: C [place] [facility] [place] Postop Eval I Sum Postop Eval Completion status Anesthesia document: Postop Eval 1 completed: Yes Anesthesia Postop Eval I Summary Anesthesia Postop Eval I Summary: Anesthesia Postop Eval I: Assessment Summary Airway patent Yes 12/15/24 07:50 TRAVEL SPECIALIST.LIZZETTEOBGriselda Spontaneous unlabored Yes 12/15/24 07:50 TRAVEL SPECIALIST.LIZZETTEOBGriselda respirations Mental status Awake,Calm 12/15/24 07:50 TRAVEL SPECIALIST.LIZZETTEOBY nausea No 12/15/24 07:50 TRAVEL SPECIALIST.LIZZETTEOBY Vomiting No 12/15/24 07:50 TRAVEL SPECIALIST.LIZZETTEOBGirselda Anesthesia Postop Eval I: Fluid Summary Crystalloid volume administer 400 12/15/24 07:50 TRAVEL SPECIALIST.LIZZETTEOBY (ml) Colloids volume administered ( ml) Blood Product volume administered (ml) Total IV fluid infused 400 12/15/24 07:50 TRAVEL SPECIALIST.SKOBY Anesthesia Postop Eval I: Summary Notes Anesthesia Complication No 12/15/24 07:50 TRAVEL SPECIALIST.SKOBY Anesthesia Complication Comment: Post-operative progress note Anesthesia: Postop Eval II Evaluation Mental status: Awake Pain Level: 0 nausea: No Vomiting: No 12/15/24 0902 Date Tahir Woodard Signature: Date CC: Signed Normal [facility] Operative Reporton 5 Operative Report [facility] Medical Records Department [address] [facility] [place] [address] Operative Report 12/15/24 0750 MR#: [id number] Acct: [id number] Name: PATRICK FOUNTAIN SANDRA Rep #: [id number] : 1970 54 From: Miguel Haley MD PCP: TERA Sandhu Status:[facility] Location: [place] [address] Operative Report (Standard) Operative Information Date of Procedure: 12/15/24 Pre-Operative Diagnosis: Lumbosacral spondylosis, lumbosacral degenerative disc disease, lumbosacral facet arthropathy Post-Operative Diagnosis: Lumbosacral spondylosis, lumbosacral degenerative disc disease, lumbosacral facet arthropathy Surgery/Procedure Performed: Left-sided lumbar radiofrequency ablation of the medial branch at L4-5, L5-S1 snuff grinder and screener: No Type of Anesthesia: Local MAC RN Documented Start/Stop Times: Operation Date: 12/15/24 07:30 Case Time Into Pre-Op 12/15/24 06:13 Out of Pre-Op 12/15/24 07:22 Anesthesia Start 12/15/24 07:26 Into Room 12/15/24 07:26 Procedure Start 12/15/24 07:36 Procedure End 12/15/24 07:44 Anesthesia End 12/15/24 07:45 Out of Room 12/15/24 07:45 Into Recovery 12/15/24 07:46 Procedure Start Time: 07:51 Procedure Stop Time: 07:51 Select all DRAINS/GRAFTS/IMPLA NTS that apply: None Estimated Blood Loss: 1 Specimen collected: No Description of surgery: ANESTHESIA: MAC. BLOOD LOSS: Minimal. COMPLICATIONS: None. DESCRIPTION OF PROCEDURE: History and physical of today was reviewed. Risks and benefits of the procedure were explained. The patient understood and agreed to proceed. Informed consent was obtained. IV inserted per routine protocol. The patient was taken to the operating room and placed in the prone position with a pillow positioned underneath the abdomen. The left side of the lower back was prepped and draped in a sterile fashion using iodine x3. Under fluoroscopy guidance in an oblique view, the L3 through S1 vertebral bodies were visualized. The skin and subcutaneous tissue was anesthetized with approximately 10 mL of 1% lidocaine using a 25-gauge regular needle. Under direct visualization on fluoroscopy at approximately 25-degree angle, starting on the left L3, ending on the left S1, passing through the L4 and L5, using a 20-gauge 15-cm with a 10-mm curved active-tip radiofrequency ablation needle, the needle was passed through the skin. The tip of the needle was maneuvered and directed towards the superior medial gutter of the transverse process at the vicinity of the medial branch. Once the tip of the needle was in contact with the bone, the needle was pulled approximately 2 mm off the bone. The stylette of each needle was then removed. After negative aspiration of blood or CSF and confirmation on AP, oblique as well as lateral view, the radiofrequency ablation probe was then inserted at each level. Impedance was then recorded at L3 to be 241 ohm, at L4 to be 234 ohm, at L5 to be 312 ohm, and at S1 to be 243 ohm. Motor evoked potential was then initiated to 2 Hz and 1.5 volt without any motor response at each corresponding level. The probe was then removed intact and a total of 6 mL of preservative-free 1% lidocaine was injected in divided doses between those four levels after negative aspiration of blood or CSF. The radiofrequency ablation probe was then reinserted. After confirmation on AP, oblique as well as lateral view, radiofrequency ablation was then initiated to 80 degree Celsius for 90 second at each level. Once concluded, the probe was then removed intact. A total of 6 mL of preservative-free 0.25% Marcaine with 40 mg of Depo-Medrol was injected in divided doses between those four levels. The needles were then removed intact. The patient experienced no sign or symptoms of intrathecal or intravascular injection. The patient experienced no paresthesia. The procedure was completed without any apparent difficulty or any complications. The patient appeared to tolerate it well. Sensory as well as motor exam was unchanged from prior to the procedure. ASSESSMENT AND PLAN: This is a 54-year-old male with lumbosacral spondylosis, lumbosacral degenerative disc disease, lumbosacral facet arthropathy, status post left-sided lumbar radiofrequency ablation of the medial branch at L4, L5, S1, patient will continue his current medications, patient will follow-up in approximately 2 weeks for reevaluation. Surgical Findings: 0 Complications Complications: No Admit VTE Documentation VTE Present on Admission: No VTE Mechan Device Prophylaxis: None VTE Pharm Prophylaxis ordered?: No 12/15/24 0754 Cosigner Signature (if applicable): CC: PLASTICS PROCESS HAND-C Katya Jordan; Dr. Miguel Haley MD Signed Normal [facility] Bedside Glucoseon 08-18-2024 FINGERSTICK GLU 175 mg/dL High 74-106 [facility] Comment on above: Result Comment: MARIA ISABEL GEMENT OF PATIENT CARE PER NURSING PROTOCOL Performed By: #### L 501.080 #### [facility] [address] [place], [place], [address] Glucose measurement at [facility] dothani deOrdered By: Miguel Haley on 08-18-2024 Glucose [Mass/Vol] 175 mg/dL High 74-106 [facility] Comment on above: MANAGEMENT OF PATIEN T CARE PER NURSING PROTOCOL L/S Spine w Bend Min 6 Vwon 08-18-2024 L/S Spine w Bend Min 6 Vw [facility] Imaging Services [address] [place] [address] L/S Spine w Bend Min 6 MR#: [id number] Acct: [id number] Name: PATRICK FOUNTAIN Rep #: [id number] : 1970 M 54 From: Neymar Nguyen MD PCP: TERA Sandhu Status: [facility] Study: L/S Spine w Bend Min 6 Vw Date of Exam: Exam# [id number] Ordering Dr: Miguel Haley MD PROCEDURE: Lumbar spine fluoro REASON FOR EXAM: BILAT MEDIAL BRANCH BLOCK L4 L5 S1 TECHNIQUE: 6 images, 23.2 seconds, 18.30 mGy. COMPARISON: None FINDINGS: Fluoro was provided. RAD/L/S Spine w Bend Min 6 Vw IMPRESSION: Fluoro was provided. Reading Location: [facility] CC: PLASTICS PROCESS HAND-C Katya Jordan; Dr. Miguel Haley MD Estimator And Drafter: Signed [facility] MR/POSTOP.[facility] 08-18-2024 MR/POSTOP.[facility] Medical Records Department [address] [place] [address] Anesthesia Postop Eval I 08/18/24900 MR#: [id number] Acct: [id number] Name: PATRICK FOUNTAIN SANDRA Rep #: [id number] : 1970 54 From: Blaine Sewell CRNA PCP: RADHA SandhuC Status:[facility] [place] Race: C Location: [facility] Anesthesia: Postop Eval I Current Vital Signs [...] 1 completed: Yes 08/18/24901 Date Blaine Sewell TRAVEL SPECIALIST Cosigner Signature: Date CC: Signed [facility] [id number] 08-18-2024 MR/POSTOPAN2 [facility] Medical Records Department [address] [place] [address] Anesthesia Postop Eval II 08/18/24909 MR#: [id number] Acct: [id number] Name: PATRICK FOUNTAIN Rep #: [id number] : 1970 54 From: Tahir Vidales MD PCP: RADHA SandhuC Status:[facility] Race: C Location: [facility] Anesthesia Postop Eval I Sum Postop Eval Completion status Anesthesia document: Postop Eval 1 completed: Yes Anesthesia Postop Eval I Summary Anesthesia Postop Eval I Summary: Anesthesia Postop Eval I: Assessment Summary Airway patent Yes 08/18/24 09:02 TRAVEL [email or web address].[email or web address] Spontaneous unlabored Yes 08/18/24 09:02 TRAVEL SPECIALIST.JBLOU respirations Mental status Awake,Calm 08/18/24 09:02 TRAVEL SPECIALIST.JBLOU nausea No 08/18/24 09:02 TRAVEL SPECIALIST.JBLOU Vomiting No 08/18/24 09:02 TRAVEL SPECIALIST.JBLOU Anesthesia Postop Eval I: Fluid Summary Crystalloid volume administer 200 08/18/24 09:02 TRAVEL SPECIALIST.JBLOU (ml) Colloids volume administered ( ml) Blood Product volume administered (ml) Total IV fluid infused 200 08/18/24 09:02 TRAVEL SPECIALIST.JBLOU Anesthesia Postop Eval I: Summary Notes Anesthesia Complication No 08/18/24 09:02 TRAVEL SPECIALIST.JBLOU Anesthesia Complication Comment: Post-operative progress note Anesthesia: Postop Eval II Evaluation Mental status: Awake Pain Level: 0 nausea: No Vomiting: No 08/18/24909 Date Tahir Vidales MD Cosign Signature: Date CC: Signed Normal [facility] Operative Reporton Operative Report [facility] Medical Records Department [address] [place] [address] Operative Report 08/18/24 0910 MR#: [id number] Acct: [id number] Name: PATRICK FOUNTAIN Rep #: [id number] : 1970 54 From: Miguel Haley MD PCP: TERA Sandhu Status:[facility] Location: [facility] Operative Report (Standard) Operative Information Date of Procedure: 08/18/24 Pre-Operative Diagnosis: 0 Post-Operative Diagnosis: 0 Surgery/Procedure Performed: 0 snuff grinder and screener: No Type of Anesthesia: Local MAC RN [...] 08/18/24 0911 Cosigner Signature (if applicable): CC: TERA Jordan; Dr. Miguel Haley MD Signed Normal [facility] Bedside Glucoseon 04-07-2024 FINGERSTICK GLU 236 mg/dL High 74-106 [facility] Comment on above: Result Comment: MARIA ISABEL RAPHAEL OF PATIENT CARE PER NURSING PROTOCOL Performed By: #### L 501.080 #### [facility] [address] [place], [address] L/S Spine Min 4 Viewson L/S Spine Min 4 Views [facility] Imaging Services [address] [place] [address] L/S Spine Min 4 Views MR#: [id number] Acct: [id number] Name: PATRICK FOUNTAIN Rep #: [id number] : 1970 M 53 From: Augustin De Anda MD PCP: TERA Sandhu Status: [facility] Study: L/S Spine Min 4 Views Date of Exam: 04/07/24 Exam# [id number] Ordering Dr: Miguel Haley MD -[id number] PROCEDURE: Bilateral lumbar nerve block DATE [...] Anda MD at 11:12 EST , CC: PLASTICS PROCESS HANDSanna Jordan; Dr. Miguel Haley MD Estimator And Drafter: Signed [facility] MR/POSTOP.ANEon 04-07-2024 MR/POSTOP.ANE [facility] Medical Records Department [address] [place] [address] Anesthesia Postop Eval I 04/07/24 1023 MR#: [id number] Acct: [id number] Name: PATRICK FOUNTAIN Rep #: [id number] : 1970 53 From: Blaine Sewell CRNA PCP: TERA Sandhu Status[facility] [place] Race: C Location: [facility] Anesthesia: Postop Eval I Current Vital Signs [...] completed: Yes 04/07/24 1024 Date Blaine Sewell TRAVEL SPECIALIST Cosigner Signature: Date CC: Signed Normal [facility] MR/[id number] 04-07-2024 MR/POSTOPAN2 [facility] Medical Records Department [address] [place] [address] Anesthesia Postop Eval II 04/07/24 1042 MR#: [id number] Acct: [id number] Name: PATRICK FOUNTAIN Rep #: [id number] : 1970 53 From: Thair Vidales MD PCP: TERA Sandhu Status:[facility] Race: C Location: [facility] Anesthesia Postop Eval I Sum Postop Eval Completion status Anesthesia document: Postop Eval 1 completed: Yes Anesthesia Postop Eval I Summary Anesthesia Postop Eval I Summary: Anesthesia Postop Eval I: Assessment Summary Airway patent No 04/07/24 10:24 TRAVEL SPECIALIST.[email or web address] Spontaneous unlabored No 04/07/24 10:24 TRAVEL SPECIALIST.JBLOU respirations Mental status Awake,Calm 04/07/24 10:24 TRAVEL SPECIALIST.JBLOU nausea No 04/07/24 10:24 TRAVEL SPECIALIST.JBLOU Vomiting No 04/07/24 10:24 TRAVEL SPECIALIST.JBLOU Anesthesia Postop Eval I: Fluid Summary Crystalloid volume administer 30 04/07/24 10:24 TRAVEL SPECIALIST.JBLOU (ml) Colloids volume administered ( ml) Blood Product volume administered (ml) Total IV fluid infused 30 04/07/24 10:24 TRAVEL SPECIALIST.JBLOU Anesthesia Postop Eval I: Summary Notes Anesthesia Complication No 04/07/24 10:24 TRAVEL SPECIALIST.JBLOU Anesthesia Complication Comment: Post-operative progress note Anesthesia: Postop Eval II Evaluation Mental status: Awake Pain Level: 0 nausea: No Vomiting: No 04/07/24 1042 Date Tahir Vidales MD Cosigner Signature: Date CC: Signed Normal [facility] Operative Reporton 5 Operative Report [facility] Medical Records Department [address] [place] [address] Operative Report 04/07/24 0932 MR#: [id number] Acct: [id number] Name: PATRICK FOUNTAIN Rep #: [id number] : 1970 53 From: Miguel Haley MD PCP: TERA Sandhu Status:[facility] Location: [place] [address] Operative Report (Standard) Operative Information Date of Procedure: 04/07/24 Pre-Operative Diagnosis: 1 Post-Operative Diagnosis: 1 Surgery/Procedure Performed: 1 snuff grinder and screener: No Type of Anesthesia: MAC and Topical Anesth RN Documented Start/Stop Times: Operation Date: 04/07/24 09:00 Case Time Into Pre-Op 04/07/24 07:40 Out of Pre-Op 04/07/24 09:06 Anesthesia Start 04/07/24 09:21 Into Room 04/07/24 09:21 Procedure Start 04/07/24 09:26 Procedure End 04/07/24 09:30 Procedure Start Time: :33 Procedure Stop Time: :33 Select all DRAINS/GRAFTS/IMPLA NTS that apply: None [...] TERA Jordan; Dr. Miguel Haley MD Signed [facility] XR HAND LEFT 3+ VIEWS (STAND [...] on SunMar 19, 2024 1:15:09 PM EST [facility] Comment on above: Order Comment: Injur y/Trauma or Illness?:Injury/Trauma How long have you had these symptoms (acute/chronic)?:Acute Reason for exam?:left hand pain History of cancer?:- Surgeries, chemotherapy, or radiation?:- Type of Exam?:Initial Mechanism of injury?:crush injury XR Hand - left 3 Viewson No acute fracture or malalignment. Workstation ID: [id number] [facility] EXAMINATION: XR HAND LEFT 3+ VIEWS (STANDARD) [...] left hand COMPARISON: None FINDINGS: Three views. Sumeet Ewing MD - 03/19/2024 EXAMINATION: XR HAND LEFT [...] acute fracture or malalignment. Workstation ID: [id number] [facility] Radiology Study observation (narrative) XR Hand - left 3 ViewsOrdere d By: Sumeet Huynh on 03-19-2024 [facility] Work Phone: CBC W/Diff, Automatedon 03-02 Absolute Lymph 3.08 X10 3/uL Normal 0.83-4.51 [facility] Comment on above: Performed By: #### L 100.0100, L501.9940, L500.4050, L500.4100 #### [facility] [address] [place], [address] Absolute Neut 5.2 X10 3/uL Normal 2.0-7.7 [facility] Comment on above: Performed By: #### L 100.0100, L501.9940, L500.4050, L500.4100 #### [facility] [address] [place], [address] Basophils/100 WBC (Bld) 0.7 % Normal 0-1 [facility] Comment on above: Performed By: #### L 100.0100, L501.9940, L500.4050, L500.4100 #### [facility] [address] [place], [address] Eosinophils/100 WBC (Bld) 1.9 % Normal 0-5 [facility] Comment on above: Performed By: #### L 100.0100, L501.9940, L500.4050, L500.4100 #### [facility] [address] [place], [address] Erythrocyte distribution width (RBC) [Ratio] 12.9 % Normal 11.6-14.6 [facility] Comment on above: Performed By: #### L 100.0100, L501.9940, L500.4050, L500.4100 #### [facility] [address] [place], [address] Hematocrit (Bld) [Volume fraction] 47.3 % Normal 40-54 [facility] Comment on above: Performed By: #### L 100.0100, L501.9940, L500.4050, L500.4100 #### [facility] [address] [place], [address] Hemoglobin (Bld) [Mass/Vol] 15.7 g/dL Normal 13.0-16.5 [facility] Comment on above: Performed By: #### L 100.0100, L501.9940, L500.4050, L500.4100 #### [facility] [address] [place], [address] IG% 0.400 Normal 0.0-0.9 [facility] Comment on above: Result Comment: IG% - Immature Granulocytes (promyelocytes, myelocytes and metamyelocytes) > 1% indicates that a LEFT SHIFT is Present. Performed By: #### L 100.0100, L501.9940, L500.4050, L500.4100 #### [facility] [address] [place], [address] Lymphocytes/100 WBC (Bld) 34.3 % Normal 19-41 [facility] Comment on above: Performed By: #### L 100.0100, L501.9940, L500.4050, L500.4100 #### [facility] [address] [place], [address] MCH (RBC) [Entitic mass] 29.5 pg Normal 27.0-32.0 [facility] Comment on above: Performed By: #### L 100.0100, L501.9940, L500.4050, L500.4100 #### [facility] [address] [place], [address] MCHC (RBC) [Mass/Vol] 33.2 g/dL Normal 32-36 [facility] Comment on above: Performed By: #### L 100.0100, L501.9940, L500.4050, L500.4100 #### [facility] [address] [place], [address] MCV (RBC) [Entitic vol] 88.7 fL Normal 80-94 [facility] Comment on above: Performed By: #### L 100.0100, L501.9940, L500.4050, L500.4100 #### [facility] [address] [place], [address] Monocytes/100 WBC (Bld) 5.1 % Normal 0-10 [facility] Comment on above: Performed By: #### L 100.0100, L501.9940, L500.4050, L500.4100 #### [facility] [address] [place], [address] Neutrophils/100 WBC (Bld) 57.6 % Normal 47-70 [facility] Comment on above: Performed By: #### L 100.0100, L501.9940, L500.4050, L500.4100 #### [facility] [address] [place], [address] Nucleated RBC (Bld) [#/Vol] 0 10*3/uL Normal 0-5 [facility] Comment on above: Performed By: #### L 100.0100, L501.9940, L500.4050, L500.4100 #### [facility] [address] [place], [address] Platelet mean volume (Bld) [Entitic vol] 10.3 fL Normal 6.2-12.0 [facility] Comment on above: Performed By: #### L 100.0100, L501.9940, L500.4050, L500.4100 #### [facility] [address] [place], [address] Platelets (Bld) [#/Vol] 281 10*3/uL Normal 150-450 [facility] Comment on above: Performed By: #### L 100.0100, L501.9940, L500.4050, L500.4100 #### [facility] [address] [place], [address] RBC (Bld) [#/Vol] 5.33 10*6/uL Normal 4.6-6.2 [facility] Comment on above: Performed By: #### L 100.0100, L501.9940, L500.4050, L500.4100 #### [facility] [address] [place], [address] RDW SD 42.1 fl Normal 35.1-43.9 [facility] Comment on above: Performed By: #### L 100.0100, L501.9940, L500.4050, L500.4100 #### [facility] [address] [place], [address] WBC (Bld) [#/Vol] 9.0 10*3/uL Normal 4.4-11.0 [facility] Comment on above: Performed By: #### L 100.0100, L501.9940, L500.4050, L500.4100 #### [facility] [address] [place], [address] Comprehensive Metabolic Prof okon 03-18-2024 Albumin [Mass/Vol] 3.5 g/dL Normal 3.2-5.0 [facility] Comment on above: Performed By: #### L 100.0100, L501.9940, L500.4050, L500.4100 #### [facility] [address] [place], [address] Albumin/Globulin [Mass ratio] 0.9 {ratio} Normal 0.9-2.4 [facility] Comment on above: Performed By: #### L 100.0100, L501.9940, L500.4050, L500.4100 #### [facility] [address] [place], [address] ALK P 71 U/L Normal 45-117 [facility] Comment on above: Performed By: #### L 100.0100, L501.9940, L500.4050, L500.4100 #### [facility] [address] [place], [address] ALT [Catalytic activity/Vol] 36 U/L Normal 16-61 [facility] Comment on above: Performed By: #### L 100.0100, L501.9940, L500.4050, L500.4100 #### [facility] [address] [place], [address] AST [Catalytic activity/Vol] 22 U/L Normal 15-37 [facility] Comment on above: Performed By: #### L 100.0100, L501.9940, L500.4050, L500.4100 #### [facility] [address] [place], [address] Bilirubin [Mass/Vol] 1.00 mg/dL Normal 0.20-1.00 [facility] Comment on above: Result Comment: For patients on eltrombopag therapy, use of Dimension Portal TBIL is not recommended. Performed By: #### L 100.0100, L501.9940, L500.4050, L500.4100 #### [facility] [address] [place], [address] BUN/CRE 15.9 RATIO Normal 10-20 [facility] Comment on above: Performed By: #### L 100.0100, L501.9940, L500.4050, L500.4100 #### [facility] [address] [place], [address] CA,Total 9.0 mg/dL Normal 8.5-10.1 [facility] Comment on above: Performed By: #### L 100.0100, L501.9940, L500.4050, L500.4100 #### [facility] [address] [place], [address] Chloride [Moles/Vol] 102 mmol/L Normal 98-107 [facility] Comment on above: Performed By: #### L 100.0100, L501.9940, L500.4050, L500.4100 #### [facility] [address] [place], [address] CO2 [Moles/Vol] 32.0 mmol/L Normal 21.0-32.0 [facility] Comment on above: Performed By: #### L 100.0100, L501.9940, L500.4050, L500.4100 #### [facility] [address] [place], [address] Creatinine [Mass/Vol] 0.88 mg/dL Normal 0.70-1.30 [facility] Comment on above: Result Comment: The validity of the calculated GFR GFRAA in patients over 70 years has not been determined. Clinical correlation is essential. Performed By: #### L 100.0100, L501.9940, L500.4050, L500.4100 #### [facility] [address] [place], [address] EST GFR - AA 117 mL/min Normal >60 [facility] Comment on above: Result Comment: Afri can Taiwanese GFR Calc Performed By: #### L 100.0100, L501.9940, L500.4050, L500.4100 #### [facility] [address] [place], [address] GAP 3 Low 5-15 [facility] Comment on above: Performed By: #### L 100.0100, L501.9940, L500.4050, L500.4100 #### [facility] [address] [place], [address] GFR/1.73 sq M.predicted among non-blacks MDRD (S/P/Bld) [Vol rate/Area] 97 mL/min/{1.73_m2} Normal >60 [facility] Comment on above: Result Comment: Non- GFR Calc Performed By: #### L 100.0100, L501.9940, L500.4050, L500.4100 #### [facility] [address] [place], [address] Globulin (S) [Mass/Vol] 3.7 g/dL Normal 2.2-4.2 [facility] Comment on above: Performed By: #### L 100.0100, L501.9940, L500.4050, L500.4100 #### [facility] [address] [place], [address] Glucose [Mass/Vol] 185 mg/dL High 74-106 [facility] Comment on above: Result Comment: Fast ing Glucose result greater than or equal to 126 mg/dL suggests DIABETES MELLITUS per A.D.A. criteria. Performed By: #### L 100.0100, L501.9940, L500.4050, L500.4100 #### [facility] [address] [place], [address] Potassium [Moles/Vol] 3.6 mmol/L Normal 3.5-5.1 [facility] Comment on above: Performed By: #### L 100.0100, L501.9940, L500.4050, L500.4100 #### [facility] [address] [place], [address] Sodium [Moles/Vol] 137 mmol/L Normal 136-145 [facility] Comment on above: Performed By: #### L 100.0100, L501.9940, L500.4050, L500.4100 #### [facility] [address] [place], [address] T PROT 7.2 g/dL Normal 6.4-8.2 [facility] Comment on above: Performed By: #### L 100.0100, L501.9940, L500.4050, L500.4100 #### [facility] [address] [place], [address] Urea nitrogen [Mass/Vol] 14 mg/dL Normal 7-18 [facility] Comment on above: Performed By: #### L 100.0100, L501.9940, L500.4050, L500.4100 #### [facility] [address] [place], [address] Lipid Profileon 03-18-2024 Cholesterol [Mass/Vol] 166 mg/dL Normal 200 [facility] Comment on above: Result Comment: <200 mg/dL Desirable 200-240 mg/dL Borderline >240 mg/dL High Risk Performed By: #### L 100.0100, L501.9940, L500.4050, L500.4100 #### [facility] [address] [place], [address] Cholesterol in HDL [Mass/Vol] 42 mg/dL Normal [facility] Comment on above: Result Comment: The drugs N-Acetylcysteine and Metamizole may falsely depress this assay. Reference Range HDL <40 mg/dL Low HDL Cholesterol HDL >or= 60 mg/dL High HDL Cholesterol Performed By: #### L 100.0100, L501.9940, L500.4050, L500.4100 #### [facility] [address] [place], [address] Cholesterol in LDL [Mass/Vol] 99 mg/dL Normal 0-130 [facility] Comment on above: Performed By: #### L 100.0100, L501.9940, L500.4050, L500.4100 #### [facility] [address] [place], [address] Cholesterol in VLDL [Mass/Vol] 25 mg/dL Normal 5-40 [facility] Comment on above: Performed By: #### L 100.0100, L501.9940, L500.4050, L500.4100 #### [facility] [address] [place], [address] Triglyceride [Mass/Vol] 123 mg/dL Normal [facility] Comment on above: Result Comment: The drugs N-Acetylcysteine and Metamizole may falsely depress this assay. Serum Triglycerides Reference Interval Normal <150 mg/dL Borderline high 150 - 199 mg/dL High 200 - 499 mg/dL Very High > or = 500 mg/dL Performed By: #### L 100.0100, L501.9940, L500.4050, L500.4100 #### [facility] [address] [place], [place], [address] PSA,Total- Diagnosticon 03-02 PSA, DIAGNOSTIC 0.40 ng/mL Normal 0.0-4.0 [facility] Comment on above: Result Comment: This test was performed using the TPSA assay method for the [employer] chemistry system. Values obtained with different assay methods cannot be used interchangably. When changing PSA assays in the course of monitoring a patient, additional sequential testing should be carried out to confirm baseline values. Performed By: #### L 100.0100, L501.9940, L500.4050, L500.4100 #### [facility] [address] [place], [place], [address] Culture, urineOrdered By: Do ra Jordan on 05-19-2022 Bacteria identified Cx Nom (U) Positive [facility] - Chemistry and C hemistry - challengeon 05-16-2022 Bilirubin Ql (U) Negative [facility] Glucose Ql (U) 500 g/dL [facility] Ketones Ql (U) Negative [facility] pH (U) 6.0 [pH] [facility] Specific gravity (U) [Rel density] 1.020 [facility] Urobilinogen (U) [Mass/Vol] 0.7804445 mg/dL [facility] - Hematology and Cell countson 05-16-2022 Hemoglobin Ql (U) Negative [facility] - Specimen inform ationon 05-16-2022 Clarity (U) Clear [facility] Color (U) YELLOW [facility] - Urinalysison Nitrite Ql (U) Negative [facility] Protein Ql (U) Negative [facility] No Panel Informationon 05-16 Urine Leukocytes Negatve [facility] Urine Non-Hemolyzed Blood [facility] Absolute lymphocyte countOrd ered By: Katya Jordan on 03-30-2022 Lymphocytes Auto (Unsp spec) [#/Vol] 2.61 10*3/uL 0.83-4.51 [facility] Basophil percentageOrdered B y: Katya Jordan on 03-30-2022 Basophils/100 WBC (Bld) 0.3 % 0-1 [facility] Bilirubin [Mass/Vol] 0.40 mg/dL 0.20-1.00 [facility] Comment on above: For patients on eltr ombopag therapy, use of Dimension Portal TBIL is not recommended. Chloride [Moles/Vol] 100 mmol/L 98-107 [facility] Cholesterol [Mass/Vol] 161 mg/dL <200 [facility] Comment on above: <200 mg/dL Desirable 200-240 mg/dL Borderline >240 mg/dL High Risk Eosinophils/100 WBC (Bld) 6.3 % 0-5 [facility] Glucose [Mass/Vol] 128 mg/dL 74-106 [facility] Comment on above: Fasting Glucose resu lt greater than or equal to 126 mg/dL suggests DIABETES MELLITUS per A.D.A. criteria. Neutrophils (Bld) [#/Vol] 5.8 10*3/uL 2.0-7.7 [facility] Neutrophils/100 WBC (Bld) 60.6 % 47-70 [facility] Potassium [Moles/Vol] 4.0 mmol/L 3.5-5.1 [facility] Protein [Mass/Vol] 7.9 g/dL 6.4-8.2 [facility] Sodium [Moles/Vol] 135 mmol/L 136-145 [facility] Triglyceride [Mass/Vol] 198 mg/dL <199 [facility] Comment on above: The drugs N-Acetylcy steine and Metamizole may falsely depress this assay.Serum Triglycerides Reference Interval Normal <150 mg/dL Borderline high 150 - 199 mg/dL High 200 - 499 mg/dL Very High > or = 500 mg/dL WBC (Bld) [#/Vol] 9.6 10*3/uL 4.4-11.0 [facility] Blood erythrocytes count (nu mber/volume)Ordered By: Katya Jordan on 03-30-2022 RBC (Bld) [#/Vol] 6.12 10*6/uL 4.6-6.2 [facility] Blood hemoglobin measurement (mass/volume)Ordered By: Katya Jordan on 03-30-2022 Hemoglobin (Bld) [Mass/Vol] 18.3 g/dL 13.0-16.5 [facility] Comment on above: AND IT WENT TO VOICE MAIL. LEFT MESSAGE ON HER VOICEMAIL TO RETURN CALL FOR CRITICAL ON THIS PATIENT.MAF 03-30-22 AT [id number] reported result: 18.3 g/dLEdited by: HANSEL on 03/30/22:2235 Blood lymphocytes/100 leukoc ytesOrdered By: Katya Jordan on 03-30-2022 Lymphocytes/100 WBC (Bld) 27.2 % 19-41 [facility] Blood monocytes/100 leukocyt esOrdered By: Katya Jordan on 03-30-2022 Monocytes/100 WBC (Bld) 5.2 % 0-10 [facility] Blood platelet adequacy dete ction by light microscopyOrdered By: Katya Jordan on 03-30-2022 Platelets LM Ql (Bld) ADEQUATE ADEQ [facility] Blood platelet mean volumeOr dered By: Katya Jordan on 03-30-2022 Platelet mean volume (Bld) [Entitic vol] 10.7 fL 6.2-12.0 [facility] Determination of erythrocyte mean corpuscular volume (MCV)Ordered By: Katya Jordan on 03-30-2022 MCV (RBC) [Entitic vol] 86.3 fL 80-94 [facility] Hematocrit Auto (Bld) [Volum e fraction]Ordered By: Katya Jordan on 03-30-2022 Hematocrit (Bld) [Volume fraction] 52.8 % 40-54 [facility] Laboratory - Chemistry and C hemistry - challengeOrdered By: Katya Jordan on 03-30-2022 ALP [Catalytic activity/Vol] 79 U/L 45-117 [facility] ALT [Catalytic activity/Vol] 41 U/L 16-61 [facility] CO2 [Moles/Vol] 29.0 mmol/L 21.0-32.0 [facility] Globulin (S) [Mass/Vol] 4.3 g/dL 2.2-4.2 [facility] Urea nitrogen/Creatinine [Mass ratio] 13.7 mg/mg 10-20 [facility] - Hematology and Cell countsOrdered By: Katya Jordan on 03-30-2022 Anisocytosis Ql (Bld) RARE [facility] Erythrocyte distribution width (RBC) [Entitic vol] 40.9 fL 35.1-43.9 [facility] Erythrocyte distribution width (RBC) [Ratio] 13.1 % 11.6-14.6 [facility] Immature granulocytes/100 WBC (Bld) 0.400 % 0.0-0.9 [facility] Comment on above: IG% - Immature Granu locytes (promyelocytes, myelocytes and metamyelocytes) > 1% indicates that a LEFT SHIFT is Present. MCH (RBC) [Entitic mass] 29.9 pg 27.0-32.0 [facility] Nucleated RBC/100 WBC (Bld) [Ratio] 0 % 0-5 [facility] MCHC Auto (RBC) [Mass/Vol]Or dered By: Katya Jordan on 03-30-2022 MCHC (RBC) [Mass/Vol] 34.7 g/dL 32-36 [facility] No Panel InformationOrdered By: Katya Jordan on 03-30-2022 Estimated GFR (MDRD) Amer 100 mL/min >60 [facility] Comment on above: GFR Calc Estimated GFR (MDRD) Non-Af Amer 82 mL/min >60 [facility] Comment on above: Non- GFR Calc Prostate Specific Antigen Screen 0.64 ng/mL 0.00-4.00 [facility] Comment on above: This test was perfor med using the TPSA assay method for the[employer] chemistry system. Values obtained with differentassay methods cannot be used interchangably.When changing PSA assays in the course of monitoring apatient, additional sequential testing should be carriedout to confirm baseline values. Platelets bldOrdered By: Timothy Jordan on 03-30-2022 Platelets (Bld) [#/Vol] 305 10*3/uL 150-450 [facility] RBC morphologyOrdered By: Do ra Jordan on 03-30-2022 RBC morphology finding Nom (Bld) N CHROM NORMAL NORM C&C [facility] Review by pathologistOrdered By: Katya Jordan on 03-30-2022 Pathologist review Tony (Unsp spec) [Interp] Reviewed [facility] Comment on above: Previous reported re sult: Roshni aguiar Edited by: RGOOD on 03/31/22:1137Polycythemia Clinical correlation necessary.Liam Whiting M.D. 03/31/22 AMENDED REPORT 03/31/22 1137 PATH REV previously reported as: July cosme Serum or plasma albumin ian urement (mass/volume)Ordered By: Katya Jordan on 03-30-2022 Albumin [Mass/Vol] 3.6 g/dL 3.2-5.0 [facility] Serum or plasma albumin/glob ulin mass ratioOrdered By: Katya Jordan on 03-30-2022 Albumin/Globulin [Mass ratio] 0.8 {ratio} 0.9-2.4 [facility] Serum or plasma calcium ian urement (mass/volume)Ordered By: Katya Jordan on 03-30-2022 Calcium [Mass/Vol] 9.1 mg/dL 8.5-10.1 [facility] Serum or plasma cholesterol in HDL measurement (mass/volume)Ordered By: Katya Jordan on 03-30-2022 Cholesterol in HDL [Mass/Vol] 32 mg/dL >40 [facility] Comment on above: The drugs N-Acetylcy steine and Metamizole may falsely depress this assay. Reference Range HDL <40 mg/dL Low HDL Cholesterol HDL >or= 60 mg/dL High HDL Cholesterol Serum or plasma cholesterol in VLDL measurement (mass/volume)Ordered By: Katya Jordan on 03-30-2022 Cholesterol in VLDL [Mass/Vol] 40 mg/dL 5-40 [facility] Serum or plasma creatinine m easurement (mass/volume)Ordered By: Katya Jordan on 03-30-2022 Creatinine [Mass/Vol] 1.02 mg/dL 0.70-1.30 [facility] Comment on above: The validity of the calculated GFR & GFRAA in patients over 70 years has not been determined. Clinical correlation is essential. Serum or plasma low density lipoprotein (LDL) cholesterol measurement (mass/volume)Ordered By: Katya Jordan on 03-30-2022 Cholesterol in LDL [Mass/Vol] 89 mg/dL 0-130 [facility] Serum or plasma urea nitroge n measurement (mass/volume)Ordered By: Katya Jordan on 03-30-2022 Urea nitrogen [Mass/Vol] 14 mg/dL 7-18 [facility] Thin prep Papanicolaou smear with manual screeningOrdered By: Katya Jordan on 03-30-2022 Thin prep Papanicolaou smear with manual screening 18 U/L 15-37 [facility] Thin prep Papanicolaou smear with manual screening 6 5-15 [facility] Whole blood hemoglobin A1c/t otal hemoglobin ratio (mass fraction)Ordered By: Katya Jordan on 03-30-2022 HbA1c (Bld) [Mass fraction] 6.3 % 3.8-5.6 [facility] Comment on above: Normal < 5.7 % Predi abetic 5.7 - 6.4 % Diabetic >or= 6.5 % Please note range changes. PROCEDUREon 04-30-2018 Protein mass conc HNO ID: [id number] Author: Nahun Whaley Service: Pulmonary Disease Author Type: Physician Type: Procedures Filed: 05/02/2018 10:19 AM Note Text: [facility] - Sleep Disorder Report - [place] PATIENT NAME: PATRICK FOUNTAIN CSN: [id number] DATE OF : 1970 SEX/AGE: M/47 PATIENT TYPE: O HOSP SVC: LOCATION: 04/25/2018 REFERRING PHYSICIAN: KATYA JORDAN The [...] when awake. Nahun Whaley MD Pulmonary HK:modl /[id number] [facility] CNOVon 04-25-2018 CNOV Office Visit (LDNESL) ---- PATRICK FOUNTAIN ([id number]) 1970 M Date Time Provider Department 04/25/18 9:00 PM SLEEP LAB [facility] BED 1 LDNESL During your visit today, we recorded the following information about you: Referring Provider: KATYA JORDAN [[id number]] Allergies As of Date: 04/25/2018 Noted Allergy [...] Status:Closed by GERRI MATHUR on 04/26/18 Normal [facility] Vital Signs Date Time Vital Sign Value Performing Clinician Facility 12-15-2024 08:00-0400 Body temperature 97.8 [degF] Katya Jordan PLASTICS PROCESS HAND-C Work Phone: [facility] 12-15-2024 08:00-0400 Diastolic blood pressure 69 mm[Hg] Katya Jordan PLASTICS PROCESS HAND-C Work Phone: [facility] 12-15-2024 08:00-0400 Heart rate 65 /min Katya Jordan PLASTICS PROCESS HAND-C Work Phone: [facility] 12-15-2024 08:00-0400 Respiratory rate 16 /min Katya Jordan PLASTICS PROCESS HAND-C Work Phone: [facility] 12-15-2024 08:00-0400 SaO2% (BldA) [Mass fraction] 100 % Katya Jordan PLASTICS PROCESS HAND-C Work Phone: [facility] 12-15-2024 08:00-0400 Systolic blood pressure 111 mm[Hg] Katya Jordan PLASTICS PROCESS HAND-C Work Phone: [facility] 12-15-2024 06:36-0400 Body height 182.88 cm Katya Jordan PLASTICS PROCESS HAND-C Work Phone: [facility] 12-15-2024 06:36-0400 Body mass index (BMI) [Ratio] 51.4 kg/m2 Katyaisi Jordan PLASTICS PROCESS HAND-C Work Phone: [facility] 12-15-2024 06:36-0400 Body weight 171.91 kg Katya Jordan PLASTICS PROCESS HAND-C Work Phone: [facility] 08-18-2024 09:06-0400 Body temperature 99.3 [degF] Katya Jordan PLASTICS PROCESS HAND-C Work Phone: [facility] 08-18-2024 09:06-0400 Diastolic blood pressure 95 mm[Hg] Katya Jordan PLASTICS PROCESS HAND-C Work Phone: [facility] 08-18-2024 09:06-0400 Heart rate 77 /min Katyaisi Joradn PLASTICS PROCESS HAND-C Work Phone: [facility] 08-18-2024 09:06-0400 Respiratory rate 18 /min Katya Jordan PLASTICS PROCESS HAND-C Work Phone: [facility] 08-18-2024 09:06-0400 SaO2% (BldA) [Mass fraction] 99 % Katya Jordan PLASTICS PROCESS HAND-C Work Phone: [facility] 08-18-2024 09:06-0400 Systolic blood pressure 149 mm[Hg] Katya Jordan PLASTICS PROCESS HAND-C Work Phone: [facility] 08-18-2024 08:02-0400 Body height 182.88 cm Katya Jordan PLASTICS PROCESS HAND-C Work Phone: [facility] 08-18-2024 08:02-0400 Body mass index (BMI) [Ratio] 37.6 kg/m2 Katyaisi FreemanJordan PLASTICS PROCESS HAND-C Work Phone: [facility] 08-18-2024 08:02-0400 Body weight 126 kg Katyaisi Jordan PLASTICS PROCESS HAND-C Work Phone: [facility] 08-11-2024 15:59-0400 Body mass index (BMI) [Ratio] 53.1 kg/m2 Katyaisi FreemanJordan PLASTICS PROCESS HAND-C Work Phone: [facility] 08-11-2024 15:59-0400 Body temperature 97.5 [degF] Katyaisi Jordan PLASTICS PROCESS HAND-C Work Phone: [facility] 08-11-2024 15:59-0400 Body weight 177.8 kg Katyaisi FreemanJordan PLASTICS PROCESS HAND-C Work Phone: [facility] 08-11-2024 15:59-0400 Diastolic blood pressure 70 mm[Hg] Katya Jordan PLASTICS PROCESS HAND-C Work Phone: [facility] 08-11-2024 15:59-0400 Heart rate 84 /min Katyaisi FreemanJordan PLASTICS PROCESS HAND-C Work Phone: [facility] 08-11-2024 15:59-0400 Respiratory rate 18 /min Katyaisi FreemanJordan PLASTICS PROCESS HAND-C Work Phone: [facility] 08-11-2024 15:59-0400 SaO2% (BldA) [Mass fraction] 96 % Katyaisi FreemanJordan PLASTICS PROCESS HAND-C Work Phone: [facility] 08-11-2024 15:59-0400 Systolic blood pressure 107 mm[Hg] Katyaisi Jordan PLASTICS PROCESS HAND-C Work Phone: [facility] 03-19-2024 11:40-0500 Body temperature 97.7 [degF] Shanti Calixto PATIENT RELATIONS REPRESENTATIVE Work Phone: [facility] 03-19-2024 11:40-0500 Diastolic blood pressure 81 mm[Hg] Shanti Calixto PATIENT RELATIONS REPRESENTATIVE Work Phone: [facility] 03-19-2024 11:40-0500 Heart rate 73 /min Shanti Martinezliff PATIENT RELATIONS REPRESENTATIVE Work Phone: [facility] 03-19-2024 11:40-0500 Respiratory rate 18 /min Shanti Calixto PATIENT RELATIONS REPRESENTATIVE Work Phone: [facility] 03-19-2024 11:40-0500 SaO2% (BldA) [Mass fraction] 97 % Shanti Calixto PATIENT RELATIONS REPRESENTATIVE Work Phone: [facility] 03-19-2024 11:40-0500 Systolic blood pressure 118 mm[Hg] Shanti Martinezliff PATIENT RELATIONS REPRESENTATIVE Work Phone: [facility] 06-02-2022 08:23-0500 Body height 182.88 cm PLASTICS PROCESS HAND-C Katya Jordan PLASTICS PROCESS HAND Work Phone: [facility] 06-02-2022 08:23-0500 Body mass index (BMI) [Ratio] 52.2 kg/m2 PLASTICS PROCESS HAND-Bryan Jordan PLASTICS PROCESS HAND Work Phone: [facility] 06-02-2022 08:23-0500 Body weight 174.63 kg PLASTICS PROCESS HAND-Bryan Jordan PLASTICS PROCESS HAND Work Phone: [facility] 05-16-2022 17:39-0500 Body height 182.88 cm [facility] 05-16-2022 17:39-0500 Body mass index (BMI) [Ratio] 52.4 kg/m2 [facility] 05-16-2022 17:39-0500 Body temperature 97.3 [degF] [facility] 05-16-2022 17:39-0500 Body weight 175.54 kg [facility] 05-16-2022 17:39-0500 Diastolic blood pressure 60 mm[Hg] [facility] 05-16-2022 17:39-0500 Heart rate 65 /min [facility] 05-16-2022 17:39-0500 Respiratory rate 18 /min [facility] 05-16-2022 17:39-0500 SaO2% (BldA) [Mass fraction] 97 % [facility] 05-16-2022 17:39-0500 Systolic blood pressure 120 mm[Hg] [facility] 03-30-2022 15:54-0500 Body height 182.88 cm [facility] Work Phone: 03-30-2022 15:54-0500 Body mass index (BMI) [Ratio] 49.6 kg/m2 [facility] 03-30-2022 15:54-0500 Body temperature 97.5 [degF] [facility] 03-30-2022 15:54-0500 Body weight 166.01 kg [facility] 03-30-2022 15:54-0500 Diastolic blood pressure 70 mm[Hg] [facility] 03-30-2022 15:54-0500 Heart rate 103 /min [facility] 03-30-2022 15:54-0500 Respiratory rate 18 /min [facility] 03-30-2022 15:54-0500 SaO2% (BldA) [Mass fraction] 98 % [facility] 03-30-2022 15:54-0500 Systolic blood pressure 118 mm[Hg] [facility] Encounters Encounter Date Encounter Type Care Provider Facility Start: 12-15-2024 End: 12-15-2024 Admission to same day surgery center Dr. Miguel Haley MD [facility] Start: 12-15-2024 End: 12-15-2024 ambulatory Katya HALEY Work Phone: [facility] Start: 08-18-2024 End: 08-18-2024 Admission to same day surgery center Dr. Miguel Haley MD [facility] Start: 08-18-2024 End: 08-18-2024 ambulatory Katya HALEY Work Phone: [facility] Work Phone: Start: 04-07-2024 End: 04-07-2024 adelita Haley Facility:[facility] Start: 03-19-2024 End: 03-19-2024 Office outpatient visit 15 minutes Shanti Calixto CNP Work Phone: [facility] Comment on above: Contusion of dorsum of left hand (Primary Dx); Examination for medicolegal reason Start: 03-19-2024 End: 03-19-[address] [facility] Start: 03-18-2024 End: 03-18-2024 ambulatory Katya Jordan NP Facility:[facility] Start: 06-17-2022 End: 06-17-2022 ambulatory PLASTICS PROCESS HAND-C Katya Jordan PLASTICS PROCESS HAND Work Phone: [facility] Work Phone: Start: 06-17-2022 End: 06-17-2022 Patient encounter procedure PLASTICS PROCESS HAND-Bryan Jordan PLASTICS PROCESS HAND Work Phone: [facility] Start: 06-02-2022 End: 06-02-2022 Patient encounter procedure PLASTICS PROCESS HAND-Bryan Jordan PLASTICS PROCESS HAND Work Phone: [facility] Start: 05-17-2022 End: 05-17-2022 ambulatory [facility] Work Phone: Start: 05-17-2022 End: 05-17-2022 Patient encounter procedure [facility] Start: 05-16-2022 End: 05-16-2022 ambulatory [facility] Work Phone: Start: 05-16-2022 End: 05-16-2022 Patient encounter procedure [facility]-Laboratory, Specimen Start: 03-30-2022 End: 03-30-2022 ambulatory [facility] Work Phone: Start: 03-30-2022 End: 03-30-2022 Patient encounter procedure [facility]atory[facility] Specimen Start: 01-06-2020 Patient encounter status [facility] Start: 04-25-2018 End: 04-26-2018 Patient encounter procedure KATYA JORDAN [facility] Procedures Date Procedure Procedure Detail Performing Clinician Start: 12-15-2024 Destructive procedur e of nerve Katya Jordan PLASTICS PROCESS HAND-C Work Phone: Start: 08-18-2024 Local anesthetic lum bar epidural block Katya Freemanson PLASTICS PROCESS HAND-C Work Phone: Start: 08-18-2024 Complete x-ray serie s of lumbar spine with bending views Katya Freemanson PLASTICS PROCESS HAND-C Work Phone: Start: 08-18-2024 Injection of facet joint Katya Freemanson PLASTICS PROCESS HAND-C Work Phone: Start: 08-18-2024 Injection of spinal epidural space Katya Freemanson PLASTICS PROCESS HAND-C Work Phone: Start: 06-17-2022 MRI of lumbar spine PLASTICS PROCESS HAND- C Katya Jordan PLASTICS PROCESS HAND Work Phone: Start: 05-17-2022 X-ray of lumbosacral spine Urine culture Plan of Treatment Date Care Activity Detail Author Start: 12-15-2024 Fluoroscopic guidance O.R. Fluoro for C-Arm [facility] Start: 12-15-2024 X-ray of lumbosacral spine L/S Spine Min 4 Views [facility] Start: 12-15-2024 Patient discharge [facility] Start: 08-18-2024 Complete x-ray series of lumbar spine with bending views L/S Spine w Bend Min 6 Vw [facility] Start: 08-18-2024 Injection of facet joint [facility] Start: 08-18-2024 Injection of spinal epidural space [facility] Start: 08-18-2024 Patient discharge [facility] Start: 12-02-2023 COVID-19 Vaccine ( season) COVID-19 Vaccine ( season) [facility] Start: 12-02-2023 Influenza vaccination Influenza Vaccine (#1) [facility] Start: 2022 Administration of herpes zoster vaccine Zoster Vaccines (1 of 2) [facility] Start: 2022 Screening for malignant neoplasm of colon Flexible sigmoidoscopy [facility] Start: 11-12-2016 Tetanus vaccination Tetanus: Every 10yrs [facility] Start: 10-14-2016 History and physical examination, annual for health maintenance Wellness Visit [facility] Start: 1990 Hepatitis C screening Hepatitis C Screening [facility] Start: 1987 HIV screening HIV Screening [facility] Start: 1984 Depression screening using PHQ-9 (Patient Health Questionnaire 9) score Depression Screening/Follow-Up (PHQ-2/9) [facility] Start: 1972 Prostate specific antigen measurement PSA Level [facility] Start: 1972 Screening for malignant neoplasm of colon [facility] Patient referral [facility] Work Phone: Payers Date Payer Category Payer Unknown [id number] 2024 Worker's Compensation [id number] 2024 Self-pay [id number] 2024 Unknown [id number] 1970 Unknown [id number] 1970 Unknown [id number] Unknown [id number] Unknown [facility] PACKAGE PLAN . [id number] Unknown [id number] Unknown [id number] Unknown [id number] Unknown [id number] Worker's Compensation PENDING WO RKERS COMPENSATION Member Subscriber Plan / Payer (Effective for All Dates) Name: Patrick Fountain Relation to Subscriber: Employee Name: [id number]. Dory Date of : 1970 (Home) Address: [address] [place] [address] Payer ID: Not on file Group ID: Not on file Type: Not on file Address: [facility] [place] [id number] Worker's Compensation [id number] Social History Date Type Detail [facility] Work Phone: Start: 1970 Sex Assigned At Male [facility] Start: 03-19-2024 End: 12-08-2024 Tobacco smoking status AZIS Never smoked tobacco [facility] Start: 03-19-2024 Tobacco use and exposure Smokeless tobacco non-user [facility] Start: 03-19-2024 History of Social function [facility] Start: 03-19-2024 Tobacco use panel [facility] Start: 1970 Sex assigned at Not on file [facility] Start: 03-19-2024 Gender identity Identifies as male gender (finding) [facility] Start: 03-19-2024 Sexual orientation Heterosexual (finding) [facility] Medical Equipment Procedure Code Equipment Code Equipment Origin al Text Equipment Identifier Dates Blood Sugar Diagnostic (Accu-Chek Guide Test Strips) strip Start: 07-31-2022 Lancets (Accu-Ch ek Softclix Lancets) [facility] Start: 07-31-2022 Blood Sugar Diagnostic (Accu-Chek Guide Test Strips) strip Start: 07-31-2022 Lancets (Accu-Ch ek Softclix Lancets) [facility] Start: 07-31-2022 Goals Date Patient Goal Desired Activity /State Mental Status Date Assessment Result Facility 12-15-2024 Cognitive function Level Of Consciousness Drowsy [facility] Work Phone: 12-15-2024 Cognitive function Patient Orien tation Person;Place;Time [facility] Work Phone: 08-18-2024 Cognitive function Voice/Name [facility] Work Phone: Clinical Notes 03-19-2024 to 12-15-2024 Note Date & Type Note Facility 12-15-2024 Consult note [facility] 12-15-2024 Procedure note [facility] 12-15-2024 Consult note [facility] 08-18-2024 Consult note [facility] 08-18-2024 Consult note [facility] 08-18-2024 Procedure note [facility] 08-18-2024 Consult note [facility] 08-11-2024 Evaluation note Diagnosis Onset Date Resolution Asthmatic bronchitis acute August 11, 2024 3:49pm Bilateral acute otitis media acute August 11, 2024 3 :49pm [facility] Work Phone: 1(186) 382-430012-18-2024 Instructions* Patient Instructions* Shanti Calixto CNP - 03/19/2024 12:12 PM EST Follow up with [facility] within the next 5-7 days. Follow up in the emergency department if condition worsens. Take Tylenol as directed on product packaging. * Attachments The following attachments cannot be sent through Care Everywhere. * Contusion: Hand ([place] Citizen) documented in this [id number] History of Present illness Narrative* Edie Pena TECHNOLOGIST - 03/19/2024 11:46 AM EST Collection Date: 03/19/24 Collection Time: 11:34AM Documentation sent to [facility] for: [facility] Breath Alcohol Test (BAT) [facility] Drug Screen * Shanti Calixto CNP - 03/19/2024 11:39 AM EST Images from the original note were not included. Patient Name: [facility] Location: [facility] [address] [place] [id number] Date Of : Date Of Visit: 1970 03/19/2024 MRN# Provider: [id number] Shanti Calixto CNP Chief Complaint Patient presents [...] I reviewed pertinent medical records available in [facility]. This note was dictated using Retsly voice recognition software which is inherently subject [...] 03/19/2024 First report of injury: 03/19/2024 Employer: [id number] male patient presents to the urgent care [...] file for this visit. documented in this [id number] NotePatient Name: [facility] [place] [address] Date Of : Date Of Visit: 1970 03/19/2024 MRN# Provider: [id number] Shanti Calixto CNP Chief Complaint Patient presents [...] I reviewed pertinent medical records available in [facility]. This note was dictated using Retsly voice recognition software which is inherently subject [...] 03/19/2024 First report of injury: 03/19/2024 Employer: [id number] male patient presents to the urgent care [...] file for this visit. AUTHENTICATED BY SHANTI CALIXTO, ON 03/19/2024 13:38:20[facility] Author Tahir Vidales [facility] Note Date/Time August 18, 2024 9:21a [facility] Medical Records Department [address] [place] [address] Pre-Anesthesia Evaluation 08/18/24 0739 MR#: [id number] Acct: [id number] Name: PATRICK FOUNTAIN Rep #:[id number] : 1970 54 From: Tahir Vidales MD PCP: TERA Sandhu Status:REG [facility] [place] Race: C Location: [facility] ASA Classification* ASA Classification ASA Classification: 3 [...] AT L4,5,S1 Anesthesia History Anesthesia History - committee member: Anesthesia History - committee member Hx Hospitalization No 08/15/24 11:22 Any Problems [...] take am of surgery PONV PONV - committee member: PONV - committee member Female No 08/15/24 11:22 HX of Motion [...] 08/11/24 15:59 Respiratory Assessment Respiratory Assessment - committee member: Respiratory Tract Infection Hx - committee member Hx Respiratory Tract Infection No 08/15/24 11:22 STOP Sleep Apnea STOP Sleep Apnea - committee member: STOP Sleep Apnea - committee member Hx Hypertension Yes: CONTROLLED WITH MEDS 08/15/24 [...] Tobacco Use History Tobacco Use History - committee member: Tobacco Use History - committee member Tobacco Use Smoking Status Never smoker 08/15/24 11:22 Hx Tobacco Use No 08/15/24 11:22 Years Smoking Packs Smoked per Day Smoking Cessation Date was within the last 15 years Hx Smoking Cessation Date Hx Smoking Cessation Counseling Hematologic Medial History Hematologic Hx - committee member: 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 Specify any problems Hx of Preganancy in last 3 N/A 08/15/24 11:22 Months Nurse Filling Out Transfusion DSCHRIBER 08/15/24 11:22 & Questions: Date: 08/15/24 08/15/24 11:22 Time: 1108/15/24 11:22 Patient unable to answer at this time (ie. confused, unrespo /Reproduction History /Reproductive History - committee member: /Reproductive Hx- committee member Hx Now Gestational Age (in weeks): EDC: Hx Hx Para Hx Section SAB No 08/15/24 11:22 PFSH Medical History Wears glasses Pain Diabetes Arthritis [...] Reaction Status Date / Time dulaglutide (From [facility]) Allergy Severe NUMBNESS Verified 08/15/24 11:20 AROUND THE MOUTH Penicillins Allergy Severe hives and Verified 08/15/24 11:20 swelling Family History Mother Diabetes Dementia Father CVA (cerebral vascular accident) Dementia Surgical History Hx of arthroscopy of right knee Hx of arthroscopy of left knee [place] teeth removed Social History Smoking Status: Never smoker Review of Systems (Anesthesia) ROS Narrative System reviewed and no additional complaints, except as documented. 08/18/24738 <Electronically signed by Tahir Vidales MD > Date _ Tahir Vidales MD Cosigner Signature: Date CC: ~ Signed [facility] Work Phone: Consult note Author Blaine Sewell [facility] Note Date/Time August 18, 2024 9:02a [facility] Medical Records Department [address] [place] [address] Anesthesia Postop Eval I 08/18/24900 MR#: [id number] Acct: [id number] Name: PATRICK FOUNTAIN Rep #:[id number] : 1970 54 From: Blaine JACKSON PCP: Katya Jordan PLASTICS PROCESS HAND-C Status:REG [facility] [place] Race: C [place] [facility] [place]esthesia: Postop Eval I Current Vital Signs [...] Yes 08/18/24901 <Electronically signed by Blaine Sewell TRAVEL SPECIALIST> Date _ Blaine Sewell TRAVEL SPECIALIST Cosigner Signature: Date CC: ~ Signed [facility] Work Phone: Consult note Author Tahir Vidales [facility] Note Date/Time August 18, 2024 9:21a m [facility] Medical Records Department [address] [place] [address] Anesthesia Postop Eval II 08/18/24909 MR#: [id number] Acct: [id number] Name: PATRICK FOUNTAIN Rep #:[id number] : 1970 54 From: Tahir Viadles MD PCP: RADHA SandhuC Status:REG [facility] [place] Race: C [place] [facility] [place]esthesia Postop Eval I Sum Postop Eval Completion status Anesthesia document: Postop Eval 1 completed: Yes Anesthesia Postop Eval I Summary Anesthesia Postop Eval I Summary: Anesthesia Postop Eval I: Assessment Summary Airway patent Yes 08/18/24 09:02 [email or web address] [email or web address].[email or web address] Spontaneous unlabored Yes 08/18/24 09:02 TRAVEL SPECIALIST.[email or web address] respirations Mental status Awake,Calm 08/18/24 09:02 TRAVEL SPECIALIST.[email or web address] nausea No 08/18/24 09:02 TRAVEL SPECIALIST.JBLOU Vomiting No 08/18/24 09:02 TRAVEL SPECIALIST.[email or web address] Anesthesia Postop Eval I: Fluid Summary Crystalloid volume administer 200 08/18/24 09:02 TRAVEL SPECIALIST.JBLOU (ml) Colloids volume administered ( ml) Blood Product volume administered (ml) Total IV fluid infused 200 08/18/24 09:02 TRAVEL SPECIALIST.JBLOU Anesthesia Postop Eval I: Summary Notes Anesthesia Complication No 08/18/24 09:02 TRAVEL SPECIALIST.JBLOU Anesthesia Complication Comment: Post-operative progress note Anesthesia: Postop Eval II Evaluation Mental status: Awake Pain Level: 0 nausea: No Vomiting: No 08/18/24909 <Electronically signed by Tahir Vidales MD > Date _ Tahir Vidales MD [facility] Signature: Date CC: ~ Signed [facility] Work Phone: Consult note Author Tahir Vidales [facility] Note Date/Time December 15, 2024 6:41am [facility] Medical Records Department [address] [place] [address] Pre-Anesthesia Evaluation 12/15/24 0640 MR#: [id number] Acct: [id number] Name: PATRICK FOUNTAIN Rep #:[id number] : 1970 54 From: Tahir Vidales MD PCP: RADHA SandhuC Status:REG [facility] [place] Race: C Location: [place] [address] ASA Classification* ASA Classification ASA Classification: 3 [...] Mouth opens: >3 cm Mallampati Score: II Labs Anesthesia Preop lab: CBC WBC 9.0 [...] (74-106) H 03/18/24 19:03 03/18/24 POC Glucose 175 mg/dL (74-106) H 08/18/24 08:11 08/18/24 COAG Pre-Assessment Diagnosis/Proposed Procedure Planned Operative Procedure(s): LEFT LUMBAR RFA L4,5,S1 Anesthesia History Anesthesia History - committee member: Anesthesia History - committee member Hx Hospitalization No 12/08/24 13:09 Any Problems With Anesthesia No 12/08/24 13:09 Cholinesterase deficiency No 12/08/24 13:09 You/Your Family Experience No 12/08/24 13:09 fever (hyperthermia) with Relationship Recent Exposure to Contagious No 12/15/24 06:31 Disease Does patient have nerve No 12/08/24 13:09 stimulator Patient instructed to have device shut off --Does patient have Pacemaker or ICD? When Was Last Pacemaker Check QUESTION #4 FULL TEXT: You/Your Family Experience fever (hyperthermia) with Anesthesia Last Oral Intake Last Oral intake: Last Oral Intake NPO since Meds taken in AM with sips of water? Meds patient instructed to take am of surgery PONV PONV - committee member: PONV - committee member Female No 12/08/24 13:09 HX of Motion Sickness No 12/08/24 13:09 HX of N/V After Surgery No 12/08/24 13:09 Non-Smoker Yes 12/08/24 13:09 Duration of Surgery greater No 12/08/24 13:09 than 60 minutes Number of Risk Factors 1 09/08/25 13:09 PONV Score Low Risk 12/08/24 13:09 Height & Weight Height & Weight: Anesthesia: Height & Weight Height 6 ft 08/18/24 08:02 Respiratory Assessment Respiratory Assessment - committee member: Respiratory Tract Infection Hx - committee member Hx Respiratory Tract Infection No 12/08/24 13:09 STOP Sleep Apnea STOP Sleep Apnea - committee member: STOP Sleep Apnea - committee member Hx Hypertension Yes: CONTROLLED WITH MEDS 12/08/24 13:09 Hx Sleep Apnea No 12/08/24 13:09 CPAP BIPAP Do you snore loudly (louder No 12/08/24 13:09 than talking or can be heard Do you often feel tired/ No 12/08/24 13:09 fatigued/ sleepy during daytime? Has anyone observed you stop No 12/08/24 13:09 breathing during sleep? STOP Results Negative 12/08/24 13:09 QUESTION #5 FULL TEXT : Do you snore loudly (louder than talking or can be heard through closed doors)? 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 Specify any problems Hx of Preganancy in last 3 N/A 12/08/24 13:09 Months Nurse Filling Out Transfusion DSCHRIBER 12/08/24 13:09 & Questions: Date: 12/08/24 12/08/24 13:09 Time: 13:10 12/08/24 13:09 Patient unable to answer at this time (ie. confused, unrespo /Reproduction History /Reproductive History - committee member: /Reproductive Hx- committee member Hx Now No 12/08/24 13:09 Gestational Age (in weeks): EDC: Hx Hx Para Hx Section SAB No 12/08/24 13:09 Active Medications Active Medications: Current Medications Generic Name Dose Route Start Last Admin Trade Name Freq PRN Reason Stop Dose Admin Lactated Ringer's 1,000 mls @ 15 mls/hr 12/15/24 06:15 IV .Q48H [facility] PFSH Medical History Wears glasses Pain Diabetes Arthritis History of echocardiogram Back pain Dietary restriction Gastric reflux Non-smoker Cardiology follow-up encounter Hypertension History of stress test BPH (benign prostatic hyperplasia) Asthmatic bronchitis Home Medications ?Medication ?Instructions ?Recorded ?Last Taken ?Type pantoprazole 20 mg tablet,delayed 40 mg PO DAILY 04/1712/15/24 05:15 History release (Protonix) blood sugar diagnostic (Accu-Chek #100 ea 07/31/22 Unk nown Rx Guide test strips) lancets (Accu-Chek Softclix #100 ea 07/31/22 Unknown R x Lancets) lisinopril 40 mg tablet 40 mg PO DAILY #90 tabs 03/0212/14/24 Rx metoprolol succinate 200 mg 200 mg PO DAILY #90 tabs 1 05/19/23 12/15/24 05:15 Rx tablet,extended release 24 hr albuterol sulfate 90 mcg/actuation 2 puff inhalation Q 4H PRN asthma 08/11/24 Unknown Rx aerosol inhaler (Ventolin HFA) #8.5 grams finasteride 5 mg tablet 5 mg PO DAILY 08/15/2412/14 History tirzepatide 10 mg/0.5 mL 10 mg subcut FR 08/15/2408/24 History subcutaneous pen injector Allergy/AdvReac Type Severity Reaction Status Date / Time dulaglutide (From [facility]) Allergy Severe NUMBNESS Verified 12/15/24 06:28 AROUND THE MOUTH Penicillins Allergy Severe hives and Verified 12/15/24 06:28 swelling Family History Mother Diabetes Dementia Father CVA (cerebral vascular accident) Dementia Surgical History Hx of arthroscopy of right knee Hx of arthroscopy of left knee [place] teeth removed Social History Smoking Status: Never smoker Review of Systems (Anesthesia) ROS Narrative System reviewed and no additional complaints, except as documented. 12/15/24 0641 <Electronically signed by Tahir Vidales MD > Date _ Tahir Vidales MD Cosigner Signature: Date CC: ~ Signed [facility] Work Phone: Consult note Author Brittnicarl Tamez [facility] Note Date/Time December 15, 2024 8:21am [facility] Medical Records Department [address] [place] [address] Anesthesia Postop Eval I 12/15/24749 MR#: [id number] Acct: [id number] Name: PATRICK FOUNTAIN Rep #:[id number] : 1970 54 From: Brittni banda CRNA PCP: TERA Sandhu Status:REG [facility] Y Race: C Location: [place] [address] Anesthesia: Postop Eval I Current Vital Signs Temperature: 97.2 F Pulse Rate: 68 Blood Pressure: 101/60 Respiratory Rate: 18 Pulse Ox: 95 Oxygen Delivery Method: Room Air Assessment Airway patent: Yes Spontaneous unlabored respirations: Yes Mental status: Awake and Calm nausea: No Vomiting: No Anesthesia Complication: No Fluid Hydration Crystalloid volume administer (ml): 400 Total IV fluid infused: 400 Progress Note Anesthesia document: Postop Eval 1 completed: Yes 12/15/24749 <Electronically signed by Brittni diaz TRAVEL SPECIALIST> Date _ Brittni Felicianoigner Signature: Date CC: ~ Signed [facility] Work Phone: Evaluation note* Diagnosis Onset Date Resolution Status Bilateral acute otitis media acute BPH (benign prostatic hyperplasia) acute Diabetes type 2, uncontrolled acute Edema acute [facility] Work Phone: Evaluation note* Diagnosis Onset Date Resolution Status Bilateral acute otitis media acute BPH (benign prostatic hyperplasia) acute Diabetes type 2, uncontrolled acute Edema acute BPH (benign prostatic hyperplasia) acute Loss of bladder control acut e Lower back pain acute Lower extremity numbness acu te [facility] Work Phone: Evaluation note* Diagnosis Onset Date Resolution Status Bilateral acute otitis media acute BPH (benign prostatic hyperplasia) acute Diabetes type 2, uncontrolled acute Edema acute BPH (benign prostatic hyperplasia) acute Loss of bladder control acut e Lower back pain acute Lower extremity numbness acu te Lumbar spondylosis acute [facility] Work Phone: Evaluation note* Diagnosis Contusion of dorsum of left hand- Primary Examination for medicolegal reason Contusion of dorsum of left hand [facility] Work Phone: Reason for referral (narrative)No reason for referral information availableWDelaware County Hospital Work Phone: Summary Purpose Family History No Family History Records Found Relationship Condition Age at Onset Recorded Date/T bakari mother Diabetes mellitus Unknown Dementia Unknown father Cerebrovascular accident (CVA) Unknown Advance Directives No Advanced Directives Records Found Advance Directive Response Recorded Date/ Time Do you have a Healthcare Power of Dental Hygienist? No August 15, 2024 11:22am Advance Directive Response Recorded Date/ Time Do you have a Healthcare Power of Dental Hygienist? No August 15, 2024 11:22am Do you have a Healthcare Power of Dental Hygienist? No December 08, 2024 1:09pm Chief Complaint and Reason for Visit Chief [...] 3:49 pm Bilateral acute otitis media August 11, 025 3:49pm Chief Complaint Admit Date LEFT LUMBAR RADIOFREQUENCY ABLATION AT [facility] December 15, 2024 5:45am Additional Source Comments (unrecognized sect ion and content) No Status Records FoundNo Status Records FoundNo Status Records FoundNo Status Records Found INFORMATION SOURCE (unrecogn ized section and content) DATE CREATED AUTHOR 05/11/2018 [facility] DATE CREATED AUTHOR AUTHOR'S ORGANIZ ATION 05/20/2018 [facility] DATE CREATED AUTHOR AUTHOR'S ORGANIZ ATION 05/02/2024 [facility] DATE CREATED AUTHOR AUTHOR'S ORGANIZ ATION 01/03/2025 [facility] Goals (unrecognized section and content) Goals may be documented in a n alternate sectionGoals may be documented in an alternate sectionGoals may be documented in an alternate sectionGoals may be documented in an alternate section Care Teams (unrecognized sec tion and content) Team Status: Active Member Role Status Dates JACKSON [employer]CH Family Provider Active Katya Jordan PLASTICS PROCESS HAND, PLASTICS PROCESS HAND-C Primary Care Provider Active Team Status: Inactive Member Role Status Dates Katya Jordan NP, PLASTICS PROCESS HAND-C Primary Care Pr ovider, Attending Provider, Referring Provider Active Team Status: Inactive Member Role Status Dates Katya Jordan NP, OSWALDO-C Primary Care Provider, Attend ing Provider Active Team Status: Active Member Role Status Dates Katya Jordan NP, PLASTICS PROCESS HAND-C Primary Care Provider, Attend ing Provider Active Team Status: Inactive Member Role Status Dates Katya Jordan PLASTICS PROCESS HAND, PLASTICS PROCESS HAND-C Primary Care Provider, Referr ing Provider Active Dr. Jan Farrar DO Attending Provider Active Team Status: Inactive Member Role Status Dates Katya Jordan PLASTICS PROCESS HAND, PLASTICS PROCESS HAND-C Primary Care Provider Active Dr. Jan Farrar DO Attending Provider, Referring P darlene Active Problem Manager Relationship Specialty Start Date End Date Timothy Jordana ROLANDO [address] [place] [id number] PCP - General Nurse Practitioner 03/19/24 Team Status: Active Member Role Status Dates Katya Jordan PLASTICS PROCESS HAND, PLASTICS PROCESS HAND-C Primary Care Provider Active Team Status: Inactive Member Role Status Dates Katya Jordan PLASTICS PROCESS HAND, PLASTICS PROCESS HAND-C Primary Care Provider Active Start: August 11, 2024 End: August 11, 2024 Katya Jordan PLASTICS PROCESS HAND, PLASTICS PROCESS HAND-C Attending Provider Active Start: August 11, 2024 End: August 11, 2024 Katya Jordan PLASTICS PROCESS HAND, PLASTICS PROCESS HAND-C Referring Provider Active Start: August 11, 2024 End: August 11, 2024 Team Status: Inactive Member Role Status Dates Katya Jordan PLASTICS PROCESS HAND, PLASTICS PROCESS HAND-C Primary Care Provider Active Start: August 18, 2024 End: August 18, 2024 Dr. Miguel Haley MD Attending Provider Active Start: August 18, 2024 End: August 18, 2024 Dr. Miguel Haley MD Referring Provider Active Start: August 18, 2024 End: August 18, 2024 Team Status: Active Member Role/Relationship Status Dates Katya Jordan PLASTICS PROCESS HAND, PLASTICS PROCESS HAND-C Primary Care Provider Active Team Status: Inactive Member Role/Relationship Status Dates Katya Jordan PLASTICS PROCESS HAND, PLASTICS PROCESS HAND-C Primary Care Provider Active Start: August 18, 2024 End: August 18, 2024 Dr. Miguel Haley MD Attending Provider Active Start: August 18, 2024 End: August 18, 2024 Dr. Miguel Haley MD Referring Provider Active Start: August 18, 2024 End: August 18, 2024 Team Status: Inactive Member Role/Relationship Status Dates Katya Jordan PLASTICS PROCESS HAND, PLASTICS PROCESS HAND-C Primary Care Provider Active Start: December 15, 2024 End: December 15, 2024 Dr. Miguel Haley MD Attending Provider Active Start: December 15, 2024 End: December 15, 2024 Dr. Miguel Haley MD Referring Provider Active Start: December 15, 2024 End: December 15, 2024 Reason for Visit (unrecogniz ed section and content) Reason Comments Hand Pain Lt hand pain after g etting hand smashed in between steel today. [facility] FOR RECORDS PERTAINING TO PATIENTS WHO ARE [...] BE BASED ON THE PRIMARY CLINICAL RECORDS. [employer] provides no warranty or guarantee of the accuracy or completeness of information in this document.
[2025-03-11 21:45] LABS: Hematocrit 50.9 % (40-54); Hemoglobin 16.9 g/dL (13.0-16.5); Immature Granulocytes Count 0.030 X10^3/uL (0.0-0.0); Mean Corp Hgb Conc 33.2 g/dL (32-36); Mean Corpuscular Volume 89.1 fL (80-94); Mean Platelet Vol. 10.2 fl (6.2-12.0); NRBC Flagged by Analyzer 0 % (0-5); Platelet Count 316 K/mm3 (150-450); RBC Distribution Width CV 13.0 % (11.6-14.6); RBC Distribution Width SD 42.5 fl (35.1-43.9); Red Blood Count 5.71 M/mm3 (4.6-6.2); White Blood Count 8.3 K/mm3 (4.4-11.0)
[2025-03-11 22:16] LABS: AST(SGOT) 23 U/L (<=37); Alanine Aminotransfer ALT/SGPT 29 U/L (<=46); Albumin, Serum 4.2 g/dL (3.5-5.0); Alkaline Phosphatase 79 U/L (40-129); Anion Gap 11 (5-15); BUN 12 mg/dL (4-19); BUN/Creat Ratio 13.4 RATIO (10-20); Calcium,Total 9.6 mg/dL (7.6-11.0); Carbon Dioxide 29.1 mmol/L (21.0-32.0); Chloride 99 mmol/L (98-108); Globulin 3.1 g/dL (2.2-4.2); Glucose 114 mg/dL (70-99); PSA,Total - Annual Screen 0.49 ng/mL (0.02-4.00); Potassium 4.0 mmol/L (3.3-5.1)
[2025-03-11 22:52] LABS: Cholesterol 177 mg/dL (<=200); Low Density Lipoprotein Calc. 115 mg/dL; Triglycerides 134 mg/dL; Very Low Density Lipoprotein 27 mg/dL (5-40); cholesterol:hdl ratio screen 4.69
== END | disposition home or self-care (01) ==
PROVIDERS: PCP Nurse Practitioner; Referring Provider Nurse Practitioner; Visit Provider Nurse Practitioner
DX: Z00.00 Encounter for general adult medical examination without abnormal findings (principal)
CPT/HCPCS: 80053; 80061; 83036; 84153; 85025; G0103